=== PATIENT | female | born 1940 | race Caucasian/White ===

== ENCOUNTER 2017-02-28 12:52 | Inpatient (IN) | payer OTHER, MEDICARE ==
[2017-02-28] VITALS (9 sets, daily range): BP systolic 114–139; BP diastolic 63–82; PULSE 80–88; RESP 16–20; TEMP 97.8–98.2; O2SAT 92–94
[~2017-02-28] VITALS: Ht 165.1 cm; Wt 70.5 kg
[~2017-02-28 12:52] MED LIST: ALBU.5I INH; ALBU0.086 INH; ASPI81TA82 PO; CALTTAB5 PO; FISHCAP PO; LEVA500T PO; METF500 PO; MUCI600T PO; PRED20 PO; RAMI5CAP7 PO; SIMV40TA PO; VITA20003 PO
[2017-02-28] MEDS ORDERED: IOHEXOL 350 MG/ML 10 ML VIAL (for RAD DIAG) IVCONTRAST ONE (12:53)
[2017-02-28] MEDS ORDERED: METF500T PO (13:04)
[2017-02-28] MEDS ORDERED: RAMI10CA PO (13:15)
[2017-02-28] MEDS ORDERED: SIMV40TA PO (13:15)
--- NOTE | 2017-02-28 13:28 | PD ---
HPI Chief Complaint: Respiratory Distress Time Seen by Provider: 13:12 Travel History International Travel<30 days: No Contact w/Intl Traveler<30days: No Traveled to known affect area: No History of Present Illness HPI This is a 76-year-old female with history of coronary artery disease with [address], COPD, asthma, tobacco use, diabetes, hyperlipidemia, presents for evaluation of dyspnea. For the past month the patient has had gradually worsening dyspnea on exertion as well as bilateral lower extremity edema. Symptoms haven't worsened which prompted evaluation today. She endorses a pressure in the epigastrium intermittently but denies any chest pain. She denies any cough, congestion, fevers, chills, recent travel, recent surgery. No history of DVT or PE. History of congestive heart failure. Her primary care physician is Dr. Whitehead. No other complaints. PFSH Past Medical History Asthma: Yes Cancer: Yes (UTERINE) Cardiovascular Problems: Yes (CAD, 2 STENTS) High Cholesterol: Yes COPD: Yes Diabetes: Yes (TYPE II) Patient Takes Glucophage: No (02/28/17 4730) Diminished Hearing: No Endocrine: Yes Gastrointestinal Disorders: Yes Genitourinary: No Hepatitis: No Hiatal Hernia: Yes Hypertension: Yes Medical other: Yes (ARTHRITIS, BACK NECK PAIN) Neurologic: Yes Psychiatric: No Respiratory: Yes (ASTHMA, RARELY USES INHALER) Migraines: Yes Pneumonia: Yes Thyroid Disease: No ?: Not Past Surgical History Abdominal Surgery: Yes Appendectomy: Yes Cardiac Surgery: No Cholecystectomy: Yes Ear Surgery: No Endocrine Surgery: No Eye Surgery: No Genitourinary Surgery: No Gynecologic Surgery: Yes Hysterectomy: Yes Oral Surgery: Yes (TEETH REMOVAL) Pacemaker: No Thoracic Surgery: No Other Surgery: Yes Social History Alcohol Use: Yes (OCC) Tobacco Use: Yes (/2 PPD) Substance Use: No Allergies-Medications (Allergen,Severity, Reaction): Coded Allergies: penicillin G (Unverified Allergy, Severe, Drowsiness, 01/24/17) Reported Meds & Prescriptions Reported Meds & Active Scripts Active Reported Simvastatin 40 Mg Tab 40 Mg PO HS Ramipril 10 Mg Cap 10 Mg PO DAILY Metformin (Metformin HCl) 500 Mg Tab 500 Mg PO BIDPC With meals Review of Systems Except as stated in HPI: all other systems reviewed are Neg Physical Exam Narrative GENERAL: Well-developed well-nourished female somewhat tachypneic on initial examination. Her vital signs reviewed. SKIN: Warm and dry. HEAD: Atraumatic. Normocephalic. EYES: Pupils equal and round. No scleral icterus. No injection or drainage. ENT: No nasal bleeding or discharge. Mucous membranes pink and moist. NECK: Trachea midline. No JVD. CARDIOVASCULAR: Regular rate and rhythm. No murmur appreciated. RESPIRATORY: No accessory muscle use. Mild wheezing bilaterally without crackles. GASTROINTESTINAL: Abdomen soft, non-tender, nondistended. Hepatic and splenic margins not palpable. MUSCULOSKELETAL: No obvious deformities. Trace pitting edema in the lower extremities. NEUROLOGICAL: Awake and alert. No obvious cranial nerve deficits. Motor grossly within normal limits. Normal speech. PSYCHIATRIC: Appropriate mood and affect; insight and judgment normal. Data Data Last Documented VS Vital Signs Date Time Temp Pulse Resp B/P (MAP) Pulse Ox O2 Delivery O2 Flow Rate FiO2 02/28/17 16:25 81 18 119/67 (84) 92 Nasal Cannula 3.00 02/28/17 13:01 98.2 Orders Orders Electrocardiogram (02/28/17 ) Complete Blood Count With Diff (02/28/17 13:22) Comprehensive Metabolic Panel (02/28/17 13:22) B-Type Natriuretic Peptide (02/28/17 13:22) Act Partial Throm Time (Ptt) (02/28/17 13:22) Prothrombin Time / Inr (Pt) (02/28/17 13:22) Magnesium (Mg) (02/28/17 13:22) Ckmb (Isoenzyme) Profile (02/28/17 13:22) Troponin I (02/28/17 13:22) Iv Access Insert/Monitor (02/28/17 13:22) Electrocardiogram (02/28/17 13:22) Ecg Monitoring (02/28/17 13:22) Oximetry (02/28/17 13:22) Oxygen Administration (02/28/17 13:22) Chest, Single Ap (02/28/17 13:22) Sodium Chloride 0.9% Flush (Ns Flush) (02/28/17 13:30) Albuterol-Ipratropium Neb (Duoneb Neb) (02/28/17 13:30) Lipase (02/28/17 13:22) Ct Pulmonary Angiogram (02/28/17 13:26) Methylprednisolone So Succ Inj (Solumedr (02/28/17 14:15) Aspirin Chew (Aspirin Chew) (02/28/17 14:45) Furosemide Inj (Lasix Inj) (02/28/17 14:45) Iohexol 350 Inj (Omnipaque 350 Inj) (02/28/17 12:53) (Hub Use Only)Inp Phy Cons/Ref (02/28/17 ) Troponin I (02/28/17 16:50) Electrocardiogram (02/28/17 ) Heparin Inj (Heparin Inj) (02/28/17 17:30) Heparin Inj (Heparin Inj) (02/28/17 23:30) Heparin Inj (Heparin Inj) (02/28/17 23:30) Heparin-D5w 25,000 U/250 Ml (Heparin-D5w (02/28/17 17:30) Act Partial Throm Time (Ptt) (02/28/17 17:19) Prothrombin Time / Inr (Pt) (02/28/17 17:19) Cbc No Diff, Includes Plts (02/28/17 17:19) Cbc No Diff, Includes Plts (03/03/17 06:00) Act Partial Throm Time (Ptt) (03/01/17 00:19) Occult Blood (Hemoccult) Stool (02/28/17 17:19) Admit Order (Ed Use Only) (02/28/17 17:37) Npo After Midnight W/ Po Meds (02/28/17 Dinner) Labs Laboratory Tests Test 02/28/17 13:07 02/28/17 16:57 White Blood Count 6.3 TH/MM3 Red Blood Count 5.64 MIL/MM3 Hemoglobin 16.9 GM/DL Hematocrit 52.3 % Mean Corpuscular Volume 92.7 FL Mean Corpuscular Hemoglobin 29.9 PG Mean Corpuscular Hemoglobin Concent 32.3 % Red Cell Distribution Width 13.4 % Platelet Count 151 TH/MM3 Mean Platelet Volume 8.8 FL Neutrophils (%) (Auto) 77.0 % Lymphocytes (%) (Auto) 16.2 % Monocytes (%) (Auto) 5.9 % Eosinophils (%) (Auto) 0.4 % Basophils (%) (Auto) 0.5 % Neutrophils # (Auto) 4.9 TH/MM3 Lymphocytes # (Auto) 1.0 TH/MM3 Monocytes # (Auto) 0.4 TH/MM3 Eosinophils # (Auto) 0.0 TH/MM3 Basophils # (Auto) 0.0 TH/MM3 CBC Comment DIFF FINAL Differential Comment Prothrombin Time 11.0 SEC Prothromb Time International Ratio 1.0 RATIO Activated Partial Thromboplast Time 24.3 SEC Blood Urea Nitrogen 22 MG/DL Creatinine 0.75 MG/DL Random Glucose 128 MG/DL Total Protein 6.5 GM/DL Albumin 3.5 GM/DL Calcium Level 8.3 MG/DL Magnesium Level 2.0 MG/DL Alkaline Phosphatase 70 U/L Aspartate Amino Transf (AST/SGOT) 25 U/L Alanine Aminotransferase (ALT/SGPT) 37 U/L Total Bilirubin 0.7 MG/DL Sodium Level 146 MEQ/L Potassium Level 3.6 MEQ/L Chloride Level 108 MEQ/L Carbon Dioxide Level 31.0 MEQ/L Anion Gap 7 MEQ/L Estimat Glomerular Filtration Rate 75 ML/MIN Total Creatine Kinase 86 U/L Troponin I 0.71 NG/ML B-Type Natriuretic Peptide 1405 PG/ML Lipase 168 U/L [facility] Medical Decision Making Medical Screen Exam Complete: Yes Emergency Medical Condition: Yes Medical Record Reviewed: Yes Interpretation(s) Chest x-ray CONCLUSION: 1. Compensated cardiomegaly. 2. Left basilar consolidation/effusion Troponin 0.71 BNP 1405 CTPA CONCLUSION: 1. No PE is identified. 2. Small bilateral pleural effusions with a smooth septal thickening in the lower lobes. These findings suggest mild pulmonary edema. Given the enlarged cardiac silhouette, a cardiogenic cause should be considered. 3. Nonspecific 8mm right adrenal gland nodule. It does not meet criteria for an adenoma on this examination. Differential Diagnosis New onset CHF, pulmonary embolism, pneumonia, pneumothorax, COPD exacerbation, pleural effusion Narrative Course 76-year-old female who for 1 month has been expressing gradually worsening dyspnea with exertion, orthopnea, lower extremity edema. She endorses occasional pressure in the epigastrium but denies any chest pain. Initially she has mild wheezing. She does have history of COPD. Plan is for basic lab work, chest x-ray, ECG monitoring, 12-lead EKG. The patient will be given DuoNeb therapy. EKG reveals a left bundle-branch block which is consistent with previous EKG on record. Her BNP is 1405. Troponin is 0.71. Chest x-ray reveals compensated cardiomegaly with left basilar consolidation/effusion. She has no leukocytosis. The barrel cleaner was paged once these results became available. While still awaiting for call back, second troponin has been ordered and the patient is started on heparin drip and bolus. Discussed with Dr. Liang who is agreeable to admission. Discussed with Dr. Johnson who would like patient to be NPO after midnight. Procedures EKG Prior to Arrival: Yes Diagnosis Primary Impression: Non-STEMI (non-ST elevated myocardial infarction) Additional Impression: CHF (congestive heart failure) Qualified Codes: I50.9 - Heart failure, unspecified Admitting Information Admitting Physician Requests: Admit Triston Marc Feb 28, 2017 13:28
[2017-02-28] MEDS: RESP: ALBUTEROL 2.5 MG/IPRATROPIUM 0.5 MG NEB (SCH) INH ×2 (13:29→13:30)
[2017-02-28] MEDS ORDERED: SODIUM CHLORIDE 0.9% FLUSH 10 ML FLUSH IVF PRN (13:30)
[2017-02-28 13:40] LABS: AUTOMATED NEUTROPHIL # 4.9 TH/MM3 (1.8-7.7); BASOPHIL % 0.5 % (0.0-2.0); EOSINOPHIL % 0.4 % (0.0-4.0); HEMATOCRIT 52.3 % (35.0-46.0); HEMO FLAGS DIFF FINAL; LYMPH % 16.2 % (9.0-44.0); MEAN CELL VOLUME 92.7 FL (80.0-100.0); MEAN CORPUSCULAR HEMOGLOBIN 29.9 PG (27.0-34.0); MEAN CORPUSCULAR HGB CONC 32.3 % (32.0-36.0); MONO % 5.9 % (0.0-8.0); PLATELET COUNT 151 TH/MM3 (150-450); RED BLOOD COUNT 5.64 MIL/MM3 (4.00-5.30); RED CELL DISTRIBUTION WIDTH 13.4 % (11.6-17.2); WHITE BLOOD COUNT 6.3 TH/MM3 (4.0-11.0)
[2017-02-28 13:46] LABS: APTT (PATIENT) 24.3 SEC (24.3-30.1)
[2017-02-28 14:07] LABS: ANION GAP 7 MEQ/L (5-15); AST (GOT) 25 U/L (15-37); BLOOD UREA NITROGEN 22 MG/DL (7-18); CHLORIDE 108 MEQ/L (98-107); GLOMERULAR FILTRATION RATE 75 ML/MIN (>89); POTASSIUM 3.6 MEQ/L (3.5-5.1); SODIUM (NA) 146 MEQ/L (136-145)
--- NOTE | 2017-02-28 14:09 | RADRPT ---
EXAM DATE/TIME: 02/28/2017 13:46 [facility] COMPARISON: No previous studies available for comparison. INDICATIONS : Shortness of breath. MEDICAL HISTORY : Chronic obstructive pulmonary disease. SURGICAL HISTORY : Heart stent and balloon. ENCOUNTER: Initial ACUITY: 1 day PAIN SCORE: 0/10 LOCATION: Bilateral chest FINDINGS: A single view of the chest demonstrates the lungs to be symmetrically aerated with left basilar conso lidation/effusion. Lungs are otherwise clear. Heart size is prominent but appears to be were compensa melissa. Degenerative spurring of the thoracolumbar spine. CONCLUSION: 1. Compensated cardiomegaly. 2. Left basilar consolidation/effusion Bryon Mera MD on February 28, 2017 at 14:06 Board Certified Radiologist. This report was verified electronically.
[2017-02-28 14:11] LABS: ALKALINE PHOSPHATASE 70 U/L (45-117); ALT (GPT) 37 U/L (10-53); TOTAL BILIRUBIN ADULT 0.7 MG/DL (0.2-1.0)
[2017-02-28] MEDS ORDERED: methylPREDNISolone SOD SUCC 125 MG/2 ML VIAL IV PUSH ONE (14:15)
[2017-02-28 14:17] LABS: CREATINE KINASE 86 U/L (26-192)
[2017-02-28] MEDS ORDERED: ASPIRIN 81 MG CHEW TAB PO ONE (14:45)
[2017-02-28] MEDS ORDERED: FUROSEMIDE 20 MG/2 ML VIAL IV PUSH ONE (14:45)
--- NOTE | 2017-02-28 15:25 | RADRPT ---
EXAM DATE/TIME: 02/28/2017 15:07 [facility] COMPARISON: No previous studies available for comparison. INDICATIONS : Short of breath for one month. IV CONTRAST: 74 cc Omnipaque 350 (iohexol) IV RADIATION DOSE: 23.14 CTDIvol (mGy) MEDICAL HISTORY : Hypertension. Chronic obstructive pulmonary disease. CAD, Uterine cancer, Asthma SURGICAL HISTORY : Hysterectomy. Coronary artery stent. ENCOUNTER: Initial ACUITY: 1 month PAIN SCALE: 2/10 LOCATION: Bilateral chest TECHNIQUE: Volumetric scanning of the chest was performed using a pulmonary embolism protocol MIP images were re constructed. Using automated exposure control and adjustment of the mA and/or kV according to patien t size, radiation dose was kept as low as reasonably achievable to obtain optimal diagnostic quality images. DICOM format image data is available electronically for review and comparison. Follow-up recommendations for detected pulmonary nodules are based at a minimum on nodule size and pa tient risk factors according to Fleischner Society Guidelines. FINDINGS: PULMONARY ARTERIES: No filling defects are seen in the pulmonary arteries through the segmental level. LUNGS: There is trace pleural fluid bilaterally with mild atelectasis at the lung bases. There is mild septa l thickening in the lower lobes. In the upper lobes there is mild centrilobular emphysema. PLEURAE: There are small pleural effusions bilaterally. MEDIASTINUM: Heart is enlarged with particular enlargement of the left ventricle. There is coronary artery calcifi cation moderate atherosclerotic disease of the aorta. Ascending aorta is aneurysmal measuring 4.4 cm. No lymphadenopathy is visualized. MUSCULOSKELETAL: There are degenerative changes of the thoracic spine. MISCELLANEOUS: The visualized upper abdominal organs demonstrate no acute abnormality. There is an 8mm right adrenal gland nodule with Hounsfield measurements of 16. CONCLUSION: 1. No PE is identified. 2. Small bilateral pleural effusions with a smooth septal thickening in the lower lobes. These findin gs suggest mild pulmonary edema. Given the enlarged cardiac silhouette, a cardiogenic cause should be considered. 3. Nonspecific 8mm right adrenal gland nodule. It does not meet criteria for an adenoma on this exami nation. Duc Bryant MD on February 28, 2017 at 15:18 Board Certified Radiologist. This report was verified electronically.
--- NOTE | 2017-02-28 15:28 | PD ---
Data Data Last Documented VS Vital Signs Date Time Temp Pulse Resp B/P (MAP) Pulse Ox O2 Delivery O2 Flow Rate FiO2 02/28/17 13:32 92 Nasal Cannula 2.00 02/28/17 13:01 98.2 87 17 134/79 (97) Orders Orders Electrocardiogram (02/28/17 ) Complete Blood Count With Diff (02/28/17 13:22) Comprehensive Metabolic Panel (02/28/17 13:22) B-Type Natriuretic Peptide (02/28/17 13:22) Act Partial Throm Time (Ptt) (02/28/17 13:22) Prothrombin Time / Inr (Pt) (02/28/17 13:22) Magnesium (Mg) (02/28/17 13:22) Ckmb (Isoenzyme) Profile (02/28/17 13:22) Troponin I (02/28/17 13:22) Iv Access Insert/Monitor (02/28/17 13:22) Electrocardiogram (02/28/17 13:22) Ecg Monitoring (02/28/17 13:22) Oximetry (02/28/17 13:22) Oxygen Administration (02/28/17 13:22) Chest, Single Ap (02/28/17 13:22) Sodium Chloride 0.9% Flush (Ns Flush) (02/28/17 13:30) Albuterol-Ipratropium Neb (Duoneb Neb) (02/28/17 13:30) Lipase (02/28/17 13:22) Ct Pulmonary Angiogram (02/28/17 13:26) Methylprednisolone So Succ Inj (Solumedr (02/28/17 14:15) Aspirin Chew (Aspirin Chew) (02/28/17 14:45) Furosemide Inj (Lasix Inj) (02/28/17 14:45) Iohexol 350 Inj (Omnipaque 350 Inj) (02/28/17 12:53) Labs Laboratory Tests Test 02/28/17 13:07 White Blood Count 6.3 TH/MM3 Red Blood Count 5.64 MIL/MM3 Hemoglobin 16.9 GM/DL Hematocrit 52.3 % Mean Corpuscular Volume 92.7 FL Mean Corpuscular Hemoglobin 29.9 PG Mean Corpuscular Hemoglobin Concent 32.3 % Red Cell Distribution Width 13.4 % Platelet Count 151 TH/MM3 Mean Platelet Volume 8.8 FL Neutrophils (%) (Auto) 77.0 % Lymphocytes (%) (Auto) 16.2 % Monocytes (%) (Auto) 5.9 % Eosinophils (%) (Auto) 0.4 % Basophils (%) (Auto) 0.5 % Neutrophils # (Auto) 4.9 TH/MM3 Lymphocytes # (Auto) 1.0 TH/MM3 Monocytes # (Auto) 0.4 TH/MM3 Eosinophils # (Auto) 0.0 TH/MM3 Basophils # (Auto) 0.0 TH/MM3 CBC Comment DIFF FINAL Differential Comment Prothrombin Time 11.0 SEC Prothromb Time International Ratio 1.0 RATIO Activated Partial Thromboplast Time 24.3 SEC Blood Urea Nitrogen 22 MG/DL Creatinine 0.75 MG/DL Random Glucose 128 MG/DL Total Protein 6.5 GM/DL Albumin 3.5 GM/DL Calcium Level 8.3 MG/DL Magnesium Level 2.0 MG/DL Alkaline Phosphatase 70 U/L Aspartate Amino Transf (AST/SGOT) 25 U/L Alanine Aminotransferase (ALT/SGPT) 37 U/L Total Bilirubin 0.7 MG/DL Sodium Level 146 MEQ/L Potassium Level 3.6 MEQ/L Chloride Level 108 MEQ/L Carbon Dioxide Level 31.0 MEQ/L Anion Gap 7 MEQ/L Estimat Glomerular Filtration Rate 75 ML/MIN Total Creatine Kinase 86 U/L Troponin I 0.71 NG/ML B-Type Natriuretic Peptide 1405 PG/ML Lipase 168 U/L [facility] Supervised Visit with MONAE: Yes Narrative Course The history, exam, and medical decision-making in the associated mid-level provider note were completed with my assistance. I reviewed and agree with the findings presented. I attest that I had a [id number] encounter with the patient on the same day, and personally performed and documented my assessment and findings in the medical record. *My assessment and Findings: 76 year-old woman with increasing shortness of breath or orthopnea edema and dyspnea on exertion. She has some evidence of volume overload with pedal edema. She does not have any significant Rales. Troponin and BNP are both elevated. This is likely new onset heart failure, possible ACS. Patient will be admitted. We'll discuss a cardiology, likely heparin drip, diuretics. Looks overall well. Jonny Juan MD Feb 28, 2017 15:28
[2017-02-28] MEDS ORDERED: HEPARIN SODIUM - IV 10,000 UNITS/10 ML VIAL IV ONE (17:30)
[2017-02-28] MEDS: HEPARIN-D5W 25,000 U/250 ML 250 ML IV PRN (18:12)
[2017-02-28] MEDS ORDERED: NITROGLYCERIN 0.4 MG SL 25 TABS/BTL SL PRN (18:15)
[2017-02-28] MEDS ORDERED: GLUCAGON 1 MG/ML VIAL OTHER PRN (18:15)
[2017-02-28] MEDS ORDERED: MORPHINE SULFATE 4 MG/ML INJ IV PUSH PRN (18:15)
[2017-02-28] MEDS ORDERED: SODIUM CHLORIDE 0.9% FLUSH 10 ML FLUSH IV FLUSH PRN (18:15)
[2017-02-28] MEDS ORDERED: DEXTROSE 50% IN WATER 50 ML VIAL(D50) IV PUSH PRN (18:15)
--- NOTE | 2017-02-28 18:24 | HHI.HP ---
[facility] Primary Care Physician No Primary Care Physician Admission Diagnosis Nstemi, new-onset chf Diagnoses: Chief Complaint: Shortness of breathing, chest pressure, lower extremity edema Travel History International Travel<30 Days: No Contact w/Intl Traveler <30 Da: No Traveled to Known Affected Are: No History of Present Illness This is a 76-year-old female past medical history of coronary artery disease status post stent placement and 1999 and balloon angioplasty and 2005, history of left bundle branch block, history of [place] in 1999, COPD, type 2 diabetes, hypertension, and hyperlipidemia who presented with chest pressure, shortness of breathing, and lower extremity edema for 2 weeks. Patient stated that chest pressure and shortness of breathing occurred with exertion. Symptoms worsen so she went to the emergency department. Chest pressure and shortness of breathing resolved with rest. Lower extremity worsen over the past 2 weeks. Patient stated that she she has to sleep with her head up. Patient thought her chest pressure was indigestion since she has a history of hiatal hernia. Patient does not follow with a quantitative analyst developer. She stated that she last saw a quantitative analyst developer in 2005. She has not had any echo or stress test done since her balloon angioplasty in 2005. Patient continues to smoke tobacco for 50+ years. Baseline was 2 packs per day and now down to half pack per day for the last 6 months. At the moment patient denies chest pain. All other review systems reviewed and negative. Past Family Social History Past Medical History Coronary artery disease History of [place] History uterine cancer in 1973 Type 2 diabetes COPD Hiatal hernia Hyperlipidemia Hypertension Fibromyalgia History left bundle branch block Past Surgical History Cholecystectomy Appendectomy Hysterectomy and oophorectomy Reported Medications Simvastatin 40 Mg Tab 40 Mg PO HS Ramipril 10 Mg Cap 10 Mg PO DAILY Metformin (Metformin HCl) 500 Mg Tab 500 Mg PO BIDPC With meals Allergies: Coded Allergies: penicillin G (Unverified Allergy, Severe, Drowsiness, 01/24/17) Active Ordered Medications Current Medications Sodium Chloride (NS Flush) 2 ml UNSCH PRN IVF FLUSH AFTER USING IV ACCESS; Start 02/28/17 at 13:30 Albuterol/ Ipratropium (Duoneb Neb) 1 ampule Q15M INH Last administered on 02/28 13:30; Start 02/28/17 at 13:30; Stop 02/28/17 at 13:46; Status DC Methylprednisolone Sodium Succinate (SoluMEDROL INJ) 125 mg ONCE ONCE IV PUSH Last administered on 02/28/17 14:15; Start 02/28/17 at 14:15; Stop 02/28/17 at 14:16; Status DC Aspirin (Aspirin Chew) 324 mg ONCE ONCE PO Last administered on 02/28/17 14: 43; Start 02/28/17 at 14:45; Stop 02/28/17 at 14:46; Status DC Furosemide (Lasix Inj) 20 mg ONCE ONCE IV PUSH Last administered on 02/28/17 14:55; Start 02/28/17 at 14:45; Stop 02/28/17 at 14:46; Status DC Iohexol (Omnipaque 350 Inj) 74 ml STK-MED ONCE IVCONTRAST Last administered on 02/28/17 12:53; Start 02/28/17 at 12:53; Stop 02/28/17 at 15:11; Status DC Heparin Sodium (Porcine) (Heparin Inj) 4,000 units ONCE ONCE IV ; Start at 17:30; Stop 02/28/17 at 17:31; Status DC Heparin Sodium (Porcine) (Heparin Inj) 5,000 units UNSCH PRN IV APTT LESS THAN 25; Start 02/28/17 at 23:30 Heparin Sodium (Porcine) (Heparin Inj) 2,500 units UNSCH PRN IV APTT 25 TO 39; Start 02/28/17 at 23:30 Heparin Sodium/ Dextrose 250 ml @ 9.36 mls/hr TITRATE PRN IV Coagulation management; Start 02/28/17 at 17:30 Non-Formulary Medication 10 mg DAILY PO ; Start 03/01/17 at 09:00; Status UNV Non-Formulary Medication 40 mg HS PO ; Start 02/28/17 at 21:00; Status UNV Sodium Chloride (NS Flush) 2 ml BID IV FLUSH ; Start 02/28/17 at 21:00; Status UNV Sodium Chloride (NS Flush) 2 ml UNSCH PRN IV FLUSH FLUSH AFTER USING IV ACCESS ; Start 02/28/17 at 18:15; Status UNV Aspirin (Aspirin Chew) 162 mg DAILY PO ; Start 03/01/17 at 09:00; Status UNV Metoprolol Tartrate (Lopressor) 25 mg BID PO ; Start 02/28/17 at 21:00; Status UNV Nitroglycerin (Nitroglycerin 2% Oint) 1 inch Q6HR TOP ; Start 02/28/17 at 18:15 ; Status UNV Nitroglycerin (Nitrostat Sl) 0.4 mg Q5M PRN SL ANGINA; Start 02/28/17 at 18:15 ; Status UNV Acetaminophen (Tylenol) 500 mg Q4H PRN PO HEADACHE; Start 02/28/17 at 18:15; Status UNV Morphine Sulfate (Morphine Inj) 2 mg Q5M PRN IV PUSH PAIN SCALE 6 TO 10; Start 02/28/17 at 18:15; Status UNV Famotidine (Pepcid) 20 mg BID PO ; Start 02/28/17 at 21:00; Status UNV Family History Father secondary to infected gallbladder. Mother had a unknown cancer. Social History Patient lives with her sister. Deny any alcohol illicit drug use. Smokes a half pack per day of tobacco. Physical Exam Vital Signs Vital Signs Date Time Temp Pulse Resp B/P (MAP) Pulse Ox O2 Delivery O2 Flow Rate FiO2 02/28/17 16:25 81 18 119/67 (84) 92 Nasal Cannula 3.00 02/28/17 13:32 92 Nasal Cannula 2.00 02/28/17 13:01 98.2 87 17 134/79 (97) 94 Nasal Cannula 2.00 02/28/17 13:01 94 Nasal Cannula 2.00 02/28/17 12:56 27 92 Room Air Physical Exam GENERAL: This is a well-nourished, well-developed patient, in no apparent distress. SKIN: No rashes, ecchymoses or lesions. Cool and dry. HEAD: Atraumatic. Normocephalic. No temporal or scalp tenderness. EYES: Pupils equal round and reactive. Extraocular motions intact. No scleral icterus. No injection or drainage. ENT: Nose without bleeding, purulent drainage or septal hematoma. Throat without erythema, tonsillar hypertrophy or exudate. Uvula midline. Airway patent. NECK: Trachea midline. No JVD or lymphadenopathy. Supple, nontender, no meningeal signs. CARDIOVASCULAR: Regular rate and rhythm without murmurs, gallops, or rubs. RESPIRATORY: Bilateral basilar crackles. No wheezing or rhonchi noted. GASTROINTESTINAL: Abdomen soft, nondistended. Positive tenderness palpation in the epigastric area. No hepato-splenomegaly, or palpable masses. No guarding. MUSCULOSKELETAL: Extremities without clubbing, cyanosis. Positive for lower extremity edema. No calf tenderness. Negative Homans sign bilaterally. NEUROLOGICAL: Awake and alert. Cranial nerves II through XII intact. Motor and sensory grossly within normal limits. Five out of 5 muscle strength in all muscle groups. Normal speech. Laboratory Laboratory Tests Test 02/28/17 13:07 02/28/17 16:57 White Blood Count 6.3 Red Blood Count 5.64 Hemoglobin 16.9 Hematocrit 52.3 Mean Corpuscular Volume 92.7 Mean Corpuscular Hemoglobin 29.9 Mean Corpuscular Hemoglobin Concent 32.3 Red Cell Distribution Width 13.4 Platelet Count 151 Mean Platelet Volume 8.8 Neutrophils (%) (Auto) 77.0 Lymphocytes (%) (Auto) 16.2 Monocytes (%) (Auto) 5.9 Eosinophils (%) (Auto) 0.4 Basophils (%) (Auto) 0.5 Neutrophils # (Auto) 4.9 Lymphocytes # (Auto) 1.0 Monocytes # (Auto) 0.4 Eosinophils # (Auto) 0.0 Basophils # (Auto) 0.0 CBC Comment DIFF FINAL Differential Comment Prothrombin Time 11.0 Prothromb Time International Ratio 1.0 Activated Partial Thromboplast Time 24.3 Blood Urea Nitrogen 22 Creatinine 0.75 Random Glucose 128 Total Protein 6.5 Albumin 3.5 Calcium Level 8.3 Magnesium Level 2.0 Alkaline Phosphatase 70 Aspartate Amino Transf (AST/SGOT) 25 Alanine Aminotransferase (ALT/SGPT) 37 Total Bilirubin 0.7 Sodium Level 146 Potassium Level 3.6 Chloride Level 108 Carbon Dioxide Level 31.0 Anion Gap 7 Estimat Glomerular Filtration Rate 75 Total Creatine Kinase 86 Troponin I 0.71 B-Type Natriuretic Peptide 1405 Lipase 168 Result Diagram: 02/28/17 1307 02/28/17 [address] Angiography 02/28/17 1326 Signed Impressions: Service Date/Time: Tuesday, February 28, 2017 15:07 - CONCLUSION: 1. No PE is identified. 2. Small bilateral pleural effusions with a smooth septal thickening in the lower lobes. These findings suggest mild pulmonary edema. Given the enlarged cardiac silhouette, a cardiogenic cause should be considered. 3. Nonspecific 8mm right adrenal gland nodule. It does not meet criteria for an adenoma on this examination. Duc Bryant MD Chest X-Ray 02/28/17 1322 Signed Impressions: Service Date/Time: Tuesday, February 28, 2017 13:46 - CONCLUSION: 1. Compensated cardiomegaly. 2. Left basilar consolidation/effusion MD Jason Lilly VTE Risk Assessment Caprini VTE Risk Assessment: Mod/High Risk (score >= 2) Caprini Risk Assessment Model Point Value = 1 Point Value = 2 Point Value = 3 Point Value = 5 Age 41-60 Minor surgery BMI > 25 kg/m2 Swollen legs Varicose veins or History of unexplained or recurrent spontaneous Oral contraceptives or hormone replacement Sepsis (< 1 month) Serious lung disease, including pneumonia (< 1 month) Abnormal pulmonary function Acute myocardial infarction Congestive heart failure (< 1 month) History of inflammatory bowel disease Medical patient at bed rest Age 61-74 Arthroscopic surgery Major open surgery (> 45 min) Laparoscopic surgery (> 45 min) Malignancy Confined to bed (> 72 hours) Immobilizing plaster cast Central venous access Age >= 75 History of VTE Family history of VTE Factor V Leiden Prothrombin [id number] Lupus anticoagulant Anticardiolipin antibodies Elevated serum homocysteine Heparin-induced thrombocytopenia Other congenital or acquired thrombophilia Stroke (< 1 month) Elective arthroplasty Hip, pelvis, or leg fracture Acute spinal cord injury (< 1 month) Prophylaxis Regimen Total Risk Factor Score Risk Level Prophylaxis Regimen 0-1 Low Early ambulation 2 Moderate Order ONE of the following: *Sequential Compression Device (SCD) *Heparin 5000 units SQ BID 3-4 Higher Order ONE of the following medications: *Heparin 5000 units SQ TID *Enoxaparin/Lovenox 40 mg SQ daily (WT < 150 kg, CrCl > 30 mL/min) *Enoxaparin/Lovenox 30 mg SQ daily (WT < 150 kg, CrCl > 10-29 mL/min) *Enoxaparin/Lovenox 30 mg SQ BID (WT < 150 kg, CrCl > 30 mL/min) AND/OR *Sequential Compression Device (SCD) 5 or more Highest Order ONE of the following medications: *Heparin 5000 units SQ TID (Preferred with Epidurals) *Enoxaparin/Lovenox 40 mg SQ daily (WT < 150 kg, CrCl > 30 mL/min) *Enoxaparin/Lovenox 30 mg SQ daily (WT < 150 kg, CrCl > 10-29 mL/min) *Enoxaparin/Lovenox 30 mg SQ BID (WT < 150 kg, CrCl > 30 mL/min) AND *Sequential Compression Device (SCD) Assessment and Plan Assessment and Plan 76-year-old female with history of coronary disease status post stent placement and balloon angioplasty, history of AZ, history of left bundle branch block, COPD, type 2 diabetes, hypertension, hyperlipidemia who presented with shortness of breathing, chest pain, lower extremity edema Chest pain -Concerning for ACS due to patient being high risks and chest pain occurring with exertion. Patient has a history of AZ, hx left bundle branch block, hx of coronary artery disease with stent placement. Positive tobacco use. She does have epigastric pain with palpation. -Labs reviewed and troponin elevated at 0.71. EKG shows left bundle branch block but this is her baseline. Chest x-ray shows left pleural effusion or consolidation. CTA showed mild bilateral pleural effusion. -We will continue to trend cardiac enzyme and monitor over telemetry. Will get lipid panel and a.m. -Patient was giving aspirin and heparin drip by ED provider. Will continue with aspirin and heparin drip. Will give nitro paste patch, continue statin, and start metoprolol. Morphine when necessary for chest pain. Will make sure patient is chest pain-free at the moment she is asymptomatic. -Dr. Van already contacted by ED provider, Triston. Recommend continue with heparin drip and make patient nothing by mouth at midnight. -We will also give Pepcid since she does have epigastric pain with palpation. Elevated troponin -concerns for NSTEMI. See treatment as above. Dyspnea -Most likely secondary to CHF exacerbation. -CTA shows bilateral pleural effusion. BNP elevated at 1405. -Patient given a dose of Lasix in the ED. Will continue with Lasix IV. Strict ins and outs. -Supplement with oxygen as needed. Continue to monitor clinically. -order ECHO. Tobacco dependence -Smoking cessation. Unable to give nicotine supplement since ACS is being ruled out. History of coronary disease, hypertension, hyperlipidemia, left bundle branch block, COPD, fibromyalgia, type 2 diabetes -Continue with home medication except for metformin. -Start patient on insulin sliding scale. DVT prophylaxis -On heparin drip. Discussed Condition With Patient Physician Certification 2 Midnight Certification Type: Admission for Inpatient Services Order for Inpatient Services The services are ordered in accordance with Medicare regulations or non- Medicare payer requirements, as applicable. In the case of services not specified as inpatient-only, they are appropriately provided as inpatient services in accordance with the 2-midnight benchmark. Estimated LOS (days): 2 2 days is the estimated time the patient will need to remain in the hospital, assuming treatment plan goals are met and no additional complications. Post-Hospital Plan: Yael Blanchard MD Feb 28, 2017 18:24
[2017-02-28] MEDS: SODIUM CHLORIDE 0.9% FLUSH 10 ML FLUSH IV FLUSH SCH (21:00)
[2017-02-28] MEDS: INSULIN ASPART SUPPLEMENTAL SCALE SQ SCH (21:00)
[2017-02-28] MEDS: FAMOTIDINE 20 MG TAB PO SCH (21:44)
[2017-02-28] MEDS: PRAVASTATIN SOD 80 MG TAB PO SCH (21:44)
[2017-02-28] MEDS: NITROGLYCERIN 2% OINT 1 GM PACKET TOP SCH (21:44)
[2017-02-28] MEDS: METOPROLOL TARTRATE 25 MG TAB PO SCH (22:43)
[2017-02-28 23:25] LABS: HEMATOCRIT 49.1 % (35.0-46.0); MEAN CELL VOLUME 91.6 FL (80.0-100.0); MEAN CORPUSCULAR HEMOGLOBIN 29.5 PG (27.0-34.0); MEAN CORPUSCULAR HGB CONC 32.2 % (32.0-36.0); PLATELET COUNT 146 TH/MM3 (150-450); RED BLOOD COUNT 5.36 MIL/MM3 (4.00-5.30); RED CELL DISTRIBUTION WIDTH 13.3 % (11.6-17.2); REVIEW FLAG FINAL; WHITE BLOOD COUNT 5.3 TH/MM3 (4.0-11.0)
[2017-02-28] MEDS ORDERED: HEPARIN SODIUM - IV 10,000 UNITS/10 ML VIAL IV PRN ×2 (23:30)
--- NOTE | 2017-02-28 23:33 | EKG ---
Date Performed: 02/28/2017 Time Performed: 17:07:02 PTAGE: 76 years EKG: Sinus rhythm WITH OCCASIONAL SUPRAVENTRICULAR PREMATURE COMPLEXES LEFT BUNDLE BRANCH BLOCK ABNORMAL ECG PREVIOUS TRACING : 02/28/2017 13.02 Compared to prior tracing no significant change DOCTOR: Alfredo Van Interpretating Date/Time 02/28/2017 23:31:51
[2017-02-28 23:35] LABS: APTT (PATIENT) 40.2 SEC (24.3-30.1); PROTHROMBIN TIME - PATIENT 11.5 SEC (9.8-11.6)
--- NOTE | 2017-02-28 23:47 | EKG ---
Date Performed: 02/28/2017 Time Performed: 13:02:34 PTAGE: 76 years EKG: Sinus rhythm LEFT BUNDLE BRANCH BLOCK ABNORMAL ECG PREVIOUS TRACING : 08/05/2013 22.34 Compared to the previous tracing, LBBB now noted DOCTOR: Alfredo Van Interpretating Date/Time 02/28/2017 23:46:24
[2017-03-01] VITALS (27 sets, daily range): BP systolic 94–113; BP diastolic 51–79; PULSE 56–84; RESP 18; TEMP 98–98.6; O2SAT 91–99
[2017-03-01] MEDS: NITROGLYCERIN 2% OINT 1 GM PACKET TOP SCH ×4 (00:37→17:10)
[2017-03-01 06:14] LABS: APTT (PATIENT) 39.6 SEC (24.3-30.1)
[2017-03-01 06:36] LABS: HDL CHOLESTEROL 49.3 MG/DL (40.0-60.0)
[2017-03-01] MEDS: INSULIN ASPART SUPPLEMENTAL SCALE SQ SCH ×4 (08:00→21:00)
[2017-03-01] MEDS ORDERED: FUROSEMIDE 20 MG/2 ML VIAL IV PUSH SCH (09:00)
[2017-03-01] MEDS ORDERED: ASPIRIN 81 MG CHEW TAB PO SCH (09:00)
[2017-03-01] MEDS: METOPROLOL TARTRATE 25 MG TAB PO SCH ×2 (09:30→22:10)
[2017-03-01] MEDS: SODIUM CHLORIDE 0.9% FLUSH 10 ML FLUSH IV FLUSH SCH ×2 (09:30→22:10)
[2017-03-01] MEDS: FAMOTIDINE 20 MG TAB PO SCH ×2 (09:31→22:10)
[2017-03-01] MEDS: RAMIPRIL 5 MG CAP PO SCH (09:31)
--- NOTE | 2017-03-01 11:27 | HHI.PR ---
Subjective Remarks This is a 76-year-old female with CAD status post PCI and stent placement 1999 and balloon angioplasty 2005, Left bundle branch block, History of [place] in 1999, COPD, Dm II, Hypertension, Hyperlipidemia, who came to ER with SOB, lower extremity edema for two weeks, Chest pain, department, does not follow a aircraft electrical systems specialist, she continue smoking Tobacco 50 Pack years, her base was 2 packs daily and for the last two years came to half pack daily. 03/01: Seen in her bedroom, discussed with nurse Miss Young and she is awaiting for aircraft electrical systems specialist I talked with Doctor Rehan he states Doctor Koko is coming to see the patient. at this time asymptomatic. Objective Vital Signs Date Time Temp Pulse Resp B/P (MAP) Pulse Ox O2 Delivery O2 Flow Rate FiO2 03/01/17 10:00 80 03/01/17 09:00 64 03/01/17 08:00 60 03/01/17 08:00 98.2 60 18 104/69 (81) 99 03/01/17 07:00 56 03/01/17 06:13 68 03/01/17 05:23 59 03/01/17 04:05 67 03/01/17 03:39 59 03/01/17 03:36 98.3 56 18 94/67 (76) 95 03/01/17 02:00 57 03/01/17 01:00 60 03/01/17 00:51 62 02/28/17 23:00 86 02/28/17 22:13 97.8 80 16 117/75 (89) 93 02/28/17 22:00 88 02/28/17 21:45 80 16 114/64 (81) 93 Nasal Cannula 4.00 02/28/17 19:31 86 20 127/82 (97) 92 Nasal Cannula 4.00 02/28/17 18:15 87 18 139/63 (88) 93 Nasal Cannula 3.00 02/28/17 16:25 81 18 119/67 (84) 92 Nasal Cannula 3.00 02/28/17 13:32 92 Nasal Cannula 2.00 02/28/17 13:01 98.2 87 17 134/79 (97) 94 Nasal Cannula 2.00 02/28/17 13:01 94 Nasal Cannula 2.00 02/28/17 12:56 27 92 Room Air I/O 02/28/17 02/28/17 02/28/17 03/01/17 03/01/17 03/01/17 07:00 15:00 23:00 07:00 15:00 23:00 Intake Total 240 ml Balance 240 ml Intake Oral 240 ml # Voids 2 Result Diagram: 02/28/17 2310 02/28/17 [address] Angiography 02/28/17 1326 Signed Impressions: Service Date/Time: Tuesday, February 28, 2017 15:07 - CONCLUSION: 1. No PE is identified. 2. Small bilateral pleural effusions with a smooth septal thickening in the lower lobes. These findings suggest mild pulmonary edema. Given the enlarged cardiac silhouette, a cardiogenic cause should be considered. 3. Nonspecific 8mm right adrenal gland nodule. It does not meet criteria for an adenoma on this examination. Duc Bryant MD Chest X-Ray 02/28/17 1322 Signed Impressions: Service Date/Time: Tuesday, February 28, 2017 13:46 - CONCLUSION: 1. Compensated cardiomegaly. 2. Left basilar consolidation/effusion Bryon Mera MD Procedures None Other Results Laboratory Tests Test 02/28/17 13:07 02/28/17 23:10 03/01/17 04:45 Neutrophils (%) (Auto) 77.0 % Lymphocytes (%) (Auto) 16.2 % Monocytes (%) (Auto) 5.9 % Eosinophils (%) (Auto) 0.4 % Basophils (%) (Auto) 0.5 % Neutrophils # (Auto) 4.9 TH/MM3 Lymphocytes # (Auto) 1.0 TH/MM3 Monocytes # (Auto) 0.4 TH/MM3 Eosinophils # (Auto) 0.0 TH/MM3 Basophils # (Auto) 0.0 TH/MM3 CBC Comment DIFF FINAL Differential Comment Blood Urea Nitrogen 22 MG/DL Creatinine 0.75 MG/DL Random Glucose 128 MG/DL Total Protein 6.5 GM/DL Albumin 3.5 GM/DL Calcium Level 8.3 MG/DL Magnesium Level 2.0 MG/DL Alkaline Phosphatase 70 U/L Aspartate Amino Transf (AST/SGOT) 25 U/L Alanine Aminotransferase (ALT/SGPT) 37 U/L Total Bilirubin 0.7 MG/DL Sodium Level 146 MEQ/L Potassium Level 3.6 MEQ/L Chloride Level 108 MEQ/L Carbon Dioxide Level 31.0 MEQ/L Anion Gap 7 MEQ/L Estimat Glomerular Filtration Rate 75 ML/MIN B-Type Natriuretic Peptide 1405 PG/ML Lipase 168 U/L White Blood Count 5.3 TH/MM3 Red Blood Count 5.36 MIL/MM3 Hemoglobin 15.8 GM/DL Hematocrit 49.1 % Mean Corpuscular Volume 91.6 FL Mean Corpuscular Hemoglobin 29.5 PG Mean Corpuscular Hemoglobin Concent 32.2 % Red Cell Distribution Width 13.3 % Platelet Count 146 TH/MM3 Mean Platelet Volume 8.6 FL Prothrombin Time 11.5 SEC Prothromb Time International Ratio 1.0 RATIO Activated Partial Thromboplast Time 39.6 SEC Total Creatine Kinase 72 U/L Troponin I 0.49 NG/ML Triglycerides Level 97 MG/DL Cholesterol Level 141 MG/DL LDL Cholesterol 72 MG/DL HDL Cholesterol 49.3 MG/DL Cholesterol/HDL Ratio 2.86 RATIO Objective Remarks GENERAL: Well-developed patient, in no apparent distress. SKIN: No rashes, ecchymoses or lesions. Cool and dry. HEAD: Atraumatic. Normocephalic. No temporal or scalp tenderness. EYES: Pupils equal round and reactive. NECK: Trachea midline. No JVD or lymphadenopathy. Supple. CARDIOVASCULAR: Regular rate and rhythm without murmurs, gallops, or rubs. RESPIRATORY: Decreased breath sounds no wheezing or crackles. GASTROINTESTINAL: Abdomen soft, nondistended. Non tender. MUSCULOSKELETAL: Extremities without clubbing, cyanosis. Positive for lower extremity edema. NEUROLOGICAL: Awake and alert. No Focal deficit. Medications and IVs Current Medications Medications (Trade) Dose Ordered Sig/Celso Route Start Time Stop Time Status Last Admin (NS Flush) 2 ml UNSCH PRN IVF 02/28/17 13:30 (Heparin Inj) 5,000 units UNSCH PRN IV 02/28/17 23:30 (Heparin Inj) 2,500 units UNSCH PRN IV 02/28/17 23:30 Heparin Sodium/ Dextrose 250 ml @ 9.36 mls/hr TITRATE PRN IV 02/28/17 17:30 02/28/17 18:12 (Altace) 10 mg DAILY PO 03/01/17 09:00 03/01/17 09:31 (Pravachol) 80 mg HS PO 02/28/17 21:00 02/28/17 21:44 (NS Flush) 2 ml BID IV FLUSH 02/28/17 21:00 03/01/17 09:30 (NS Flush) 2 ml UNSCH PRN IV FLUSH 02/28/17 18:15 (Aspirin Chew) 162 mg DAILY PO 03/01/17 09:00 03/01/17 09:30 (Lopressor) 25 mg BID PO 02/28/17 21:00 03/01/17 09:30 (Nitroglycerin 2% Oint) 1 inch Q6HR TOP 02/28/17 19:30 03/01/17 00:37 (Nitrostat Sl) 0.4 mg Q5M PRN SL 02/28/17 18:15 (Tylenol) 500 mg Q4H PRN PO 02/28/17 18:15 (Morphine Inj) 2 mg Q5M PRN IV PUSH 02/28/17 18:15 (Pepcid) 20 mg BID PO 02/28/17 21:00 03/01/17 09:31 (D50w (Vial) Inj) 50 ml UNSCH PRN IV PUSH 02/28/17 18:15 (Glucagon Inj) 1 mg UNSCH PRN OTHER 02/28/17 18:15 (NovoLOG SUPPLEMENTAL SCALE) 1 ACHS SLIDING SCALE SQ 02/28/17 21:00 02/28/17 21:00 (Lasix Inj) 20 mg DAILY IV PUSH 03/01/17 09:00 03/01/17 09:29 A/P Assessment and Plan 76-year-old female with history of coronary disease status post stent placement and balloon angioplasty, history of [place], history of left bundle branch block, COPD, type 2 diabetes, hypertension, hyperlipidemia who presented with shortness of breathing, chest pain, lower extremity edema 1. Atypical chest pain, in a patient with CAD and history of [place], Left Bundle branch block, status post PCI and stent placement, Tobacco dependence, elevated troponin 0.71, Chest x-ray shows left pleural effusion or consolidation. CTA showed mild bilateral pleural effusion. received Aspirin and Heparin drip recommended by ER specialist and continued by aircraft electrical systems specialist Doctor Van contacted by ER specialist concern for ACS, NSTEMI, discussed with Doctor Otoole he states Doctor Koko is coming to see the patient. 2. Tobacco dependence. strongly recommended to stop smoking. 3. CHF exacerbation the patient came with Dyspnea, CTA showed bilateral pleural effusion, BNP 1405, Lasix given strict Is and Os. continue Oxygen to keep saturation over 92% and diuretics continue. 4. Hypertension controlled. 5. Hyperlipidemia continue Home medicines. 6. COPD continue Bronchodilator, Mucolytic and incentie spirometry. 7. Fibromyalgia by history . 8. DM II continue sliding scale patient at this time NPO. DVT prophylaxis -On heparin drip. Discussed Condition With Patient and nurse Miss Young, all questions answered to the best of my abilities. Discharge Planning Once cleared by aircraft electrical systems specialist. Barrett Doshi MD Mar 01, 2017 11:27
[2017-03-01 14:40] LABS: APTT (PATIENT) 39.9 SEC (24.3-30.1)
[2017-03-01] MEDS: RESP: ALBUTEROL 2.5 MG/IPRATROPIUM 0.5 MG NEB (SCH) NEB ×2 (15:57→20:08)
--- NOTE | 2017-03-01 17:13 | EKG ---
Date Performed: 03/01/2017 Time Performed: 00:38:28 PTAGE: 76 years EKG: Sinus rhythm Left bundle branch block Abnormal ECG PREVIOUS TRACING : 02/28/2017 17.07 Compared to prior tracing no significant change DOCTOR: Alfredo Van Interpretating Date/Time 03/01/2017 17:12:00
[2017-03-01] MEDS ORDERED: DIAZEPAM 10 MG TAB PO SCH (17:30)
[2017-03-01] MEDS ORDERED: ASPIRIN 325 MG TAB PO SCH (17:30)
[2017-03-01] MEDS ORDERED: diphenhydrAMINE HCL 50 MG CAP PO SCH (17:30)
--- NOTE | 2017-03-01 17:32 | ECHRPT ---
Indication: CHEST PAIN CONCLUSIONS Severely dilated left ventricle. Mild concentric left ventricular hypertrophy. There is diffuse global hypokinesis with distinct regional wall motion abnormalities. Doppler parameters are consistent with a pseudonormal left ventricular filling pattern with concomin ant abnormal relaxation and increased filling pressure (grade 2 diastolic dysfunction). The left ventricular systolic function is severely reduced with an estimated ejection fraction in th e range of 20-25%. The right ventricle is mildly dilated. The left atrial size is moderately dilated. The right atrial size is [id number] dilated. A possible atrial level shunt is demonstrated by color flow Doppler interrogation, clinical correlat ion recommended. Mild thickening of the mitral valve leaflets. Moderate mitral valve regurgitation. Aortic valve sclerosis is present. Trace aortic valve regurgitation. Mild aortic valve stenosis. There is estimated moderate pulmonary hypertension present (range 50-60 mmHg). There is trace tricuspid valve regurgitation. The inferior vena cava (IVC) is normal in size. There is less than 50% respiratory change in dimension of the inferior vena cava (abnormal). BP: 94 / 67 HR: Rhythm: Sinus, PVCs MEASUREMENTS (Male / Female) Normal Values Technical Quality:Fair 2D ECHO LV Diastolic Diameter PLAX 7.2 cm 4.2 - 5.9 / 3.9 - 5.3 cm LV Systolic Diameter PLAX 6.9 cm IVS Diastolic Thickness 1.0 cm 0.6 - 1.0 / 0.6 - 0.9 cm LVPW Diastolic Thickness 0.9 cm 0.6 - 1.0 / 0.6 - 0.9 cm LV Relative Wall Thickness 0.3 LVOT Diameter 2.1 cm Aortic Root Diameter 3.7 cm LA Systolic Diameter LX 4.4 cm 3.0 - 4.0 / 2.7 - 3.8 cm DOPPLER AV Peak Velocity 131.0 cm/s AV Peak Gradient 6.9 mmHg AV Mean Gradient 4.0 mmHg AV Velocity Time Integral 21.8 cm LVOT Peak Velocity 72.9 cm/s LVOT Peak Gradient 2.1 mmHg LVOT Velocity Time Integral 13.3 cm AV Area Cont Eq vti 2.1 cm AV Area Cont Eq pk 1.9 cm Mitral E Point Velocity 105.0 cm/s Mitral A Point Velocity 105.0 cm/s Mitral E to A Ratio 1.0 LV E' Lateral Velocity 28.9 cm/s Mitral E to LV E' Lateral Ratio 3.6 LV E' Septal Velocity 8.1 cm/s Mitral E to LV E' Septal Ratio 13.0 TR Peak Velocity 324.0 cm/s TR Peak Gradient 42.0 mmHg Right Atrial Pressure 10.0 mmHg Pulmonary Artery Systolic Pressu 52.0 mmHg Right Ventricular Systolic Press 52.0 mmHg PV Peak Velocity 50.4 cm/s PV Peak Gradient 1.0 mmHg FINDINGS LEFT VENTRICLE Severely dilated left ventricle. Mild concentric left ventricular hypertrophy. There is diffuse global hypokinesis with distinct regional wall motion abnormalities. Doppler parameters are consistent with a pseudonormal left ventricular filling pattern with concomin ant abnormal relaxation and increased filling pressure (grade 2 diastolic dysfunction). The left ventricular systolic function is severely reduced with an estimated ejection fraction in th e range of 20-25%. RIGHT VENTRICLE The right ventricle is mildly dilated. LEFT ATRIUM The left atrial size is moderately dilated. RIGHT ATRIUM The right atrial size is [id number] dilated. ATRIAL SEPTUM A possible atrial level shunt is demonstrated by color flow Doppler interrogation, clinical correlat ion recommended. AORTA The aortic root and proximal ascending aorta are normal in size on limited imaging. MITRAL VALVE Mild thickening of the mitral valve leaflets. Moderate mitral valve regurgitation. AORTIC VALVE Aortic valve sclerosis is present. Trace aortic valve regurgitation. Mild aortic valve stenosis. TRICUSPID VALVE Structurally normal tricuspid valve. There is estimated moderate pulmonary hypertension present (range 50-60 mmHg). There is trace tricuspid valve regurgitation. PULMONARY VALVE No pulmonary valve regurgitation or stenosis. VESSELS The inferior vena cava (IVC) is normal in size. There is less than 50% respiratory change in dimension of the inferior vena cava (abnormal). PERICARDIUM No pericardial effusion. Jonny Guillen MD, FACC (Electronically Signed) Final Date:01 March 2017 17:32
--- NOTE | 2017-03-01 18:33 | MB ---
cc: [facility] B[facility] DATE OF CONSULTATION 03/01/17 REASON FOR CONSULTATION Unstable angina. HISTORY OF PRESENT ILLNESS The patient is a 76-year-old white female with a history of coronary artery disease, COPD, diabetes, hypertension who presented to the hospital with chest pain. For the last four weeks, she has had daily substernal chest heaviness associated with shortness of breath without nausea or diaphoresis. The chest discomforts initially were precipitated by minimal to mild exertion such as walking her small dogs. Recently, she has had episodes at rest. She has had no episodes of chest pain lasting more than 15 minutes. The patient denies pleurisy, syncope, near-syncope, palpitations. The patient does report occasional paroxysmal nocturnal dyspnea as well as increased pedal edema in the last several weeks. She reports compliance with medications. PAST MEDICAL HISTORY 1. Uterine cancer status post hysterectomy in 1978. 2. Coronary disease status post coronary stenting in 1999 in [place], status post angioplasty without stenting 2005 in [facility]. 3. Hyperlipidemia. 4. COPD. 5. Diabetes 6. Hypertension 7. Migraine headaches. PAST SURGICAL HISTORY 1. Excision of a nasopharyngeal mass 2010. 2. Hysterectomy. 3. Cholecystectomy. 4. Appendectomy. MEDICATIONS Cardiac medications at home 1. Simvastatin 40 mg q.h.s. 2. Altace 10 mg daily. 3. Metformin 500 mg b.i.d. ALLERGIES PENICILLIN FAMILY HISTORY The patient's father from a ruptured gallbladder. Her mother from pancreatic cancer. Her brother sustained a myocardial infarction in his 40s. SOCIAL HISTORY The patient smokes about a half a pack of cigarettes per day. She denies alcohol abuse. REVIEW OF SYSTEMS As in the history of present illness, otherwise, negative or noncontributory. She also denies visual changes, abdominal pain, melena, dyspepsia, bright red blood per rectum, fevers, wheezing. At this time, she does have a mild headache. PHYSICAL EXAMINATION VITAL SIGNS: Blood pressure 112/68 with a pulse of 68, respirations 18. GENERAL: She is a well-developed, well-nourished white female in no acute distress. HEENT: Jugular venous pressure is normal. Carotid pulses are 2+ bilaterally and without bruits. CHEST: Examination of the chest reveals diminished breath sounds diffusely. CARDIAC: She has a regular rhythm and rate without S3-S4 or murmur. ABDOMEN: She has a soft, nontender abdomen. Bowel sounds are present. There is no definite hepatosplenomegaly. EXTREMITIES: No clubbing, cyanosis or edema. Peripheral pulses are normal throughout. CARDIOLOGY STUDIES EKG shows sinus rhythm, left bundle-branch block, T-wave inversion consider anterolateral ischemia. IMAGING STUDIES Chest x-ray Shows left basilar consolidation/effusion. LABORATORY DATA WBC 5.3, hemoglobin 15.8, platelets 146, potassium 3.6, BUN 22, creatinine 0.75, troponin 0.67, total cholesterol 141, LDL 72, HDL 49, triglycerides 97, CK 86. IMPRESSION Unstable angina in this 76-year-old white female with a history of known coronary disease status post percutaneous coronary interventions in the past, history of diabetes, COPD, hypertension. At this time, she is chest pain free. The pattern of her angina in the last four weeks clearly has been escalating in severity. She has also had episodes at rest. EKG does have some changes suggestive of ischemia in the anterolateral region. Because of the instability of her symptoms and the abnormal troponin level, she has been recommended cardiac catheterization with possible percutaneous coronary intervention, the risks of which have been explained to her including but not limited to , myocardial infarction, stroke, arrhythmia, bleeding, infection, renal failure. She agrees to proceed. RECOMMENDATIONS 1. Cardiac catheterization tomorrow morning. 2. Continue statin therapy. 3. Continue the metoprolol and nitrates started here in the hospital. 4. Long-term smoking cessation efforts. MD ANILA Benavides/ /5:17 PM /6:15 PM DESHAWN
[2017-03-01] MEDS: HEPARIN-D5W 25,000 U/250 ML 250 ML IV PRN (18:34)
[2017-03-01 21:39] LABS: APTT (PATIENT) 36.6 SEC (24.3-30.1)
[2017-03-01] MEDS: PRAVASTATIN SOD 80 MG TAB PO SCH (22:10)
[2017-03-01] MEDS: guaiFENesin E.R. 600 MG TAB PO SCH (22:10)
[2017-03-02] VITALS (26 sets, daily range): BP systolic 93–131; BP diastolic 59–77; PULSE 58–87; RESP 18–20; TEMP 97.4–98.2; O2SAT 94–99
[2017-03-02] MEDS: NITROGLYCERIN 2% OINT 1 GM PACKET TOP SCH ×2 (00:06→05:53)
[2017-03-02] MEDS: RESP: ALBUTEROL 2.5 MG/IPRATROPIUM 0.5 MG NEB (SCH) NEB ×6 (03:01→19:11)
[2017-03-02] MEDS: SODIUM CHLOR 0.9% 1000 ML INJ 1,000 ML IV SCH ×2 (03:23→23:23)
[2017-03-02 06:34] LABS: APTT (PATIENT) 52.9 SEC (24.3-30.1)
[2017-03-02] MEDS ORDERED: MIDAZOLAM HCL 2 MG/2 ML VIAL ONE (07:24)
[2017-03-02] MEDS: INSULIN ASPART SUPPLEMENTAL SCALE SQ SCH ×4 (07:25→20:23)
[2017-03-02] MEDS: SODIUM CHLORIDE 0.9% FLUSH 10 ML FLUSH IV FLUSH SCH ×2 (07:26→20:15)
[2017-03-02] MEDS ORDERED: IOHEXOL 350 MG/ML 50 ML BTL (for Cath Lab) OTHER ONE (07:30)
[2017-03-02] MEDS ORDERED: IOHEXOL 350 MG/ML 100 ML BTL (for Cath Lab) OTHER ONE (07:30)
[2017-03-02] MEDS ORDERED: VERAPAMIL HCL 5 MG/2 ML VIAL ONE (07:31)
[2017-03-02] MEDS ORDERED: HEPARIN SODIUM - IV 10,000 UNITS/10 ML VIAL ONE (07:31)
[2017-03-02] MEDS ORDERED: MIDAZOLAM HCL 2 MG/2 ML VIAL IV ONE (07:35)
[2017-03-02] MEDS ORDERED: TIROFIBAN INFUSION INJ 250 ML IV ONE (07:53)
[2017-03-02] MEDS ORDERED: TICAGRELOR 90 MG TAB PO ONE ×2 (08:00→08:31)
[2017-03-02] MEDS ORDERED: HEPARIN SODIUM - IV 10,000 UNITS/10 ML VIAL IV ONE (08:00)
[2017-03-02] MEDS ORDERED: SODIUM CHLOR 0.9% 1000 ML INJ 1,000 ML IV SCH (08:46)
[2017-03-02] MEDS ORDERED: TIROFIBAN INFUSION INJ 250 ML IV SCH (08:46)
--- NOTE | 2017-03-02 08:52 | PD.CARD.PN ---
Subjective Subjective Remarks No further CP. No dyspnea this morning. Denies dizziness, palpitations. Objective Medications Item Value Date Time Ramipril 10 mg 03/01/17 0900 (Altace) DAILY/PO 03/01/17 0931 Aspirin 162 mg 03/01/17 0900 (Aspirin Chew) DAILY/PO 03/01/17 0930 Furosemide 20 mg 03/01/17 0900 (Lasix Inj) DAILY/IV PUSH 03/01/17 09 Pravastatin Sodium 80 mg 02/28/17 2100 (Pravachol) HS/PO 03/01/17 2210 Metoprolol 25 mg 02/28/17 2100 Tartrate BID/PO 03/01/17 2210 (Lopressor) Nitroglycerin 1 inch 02/28/17 1930 (Nitroglycerin Q6HR/TOP 03/02/17 0553 2% Oint) Heparin Sodium/ 250 ml @ 9.36 mls/hr 02/28/17 1730 Dextrose TITRATE PRN/IV 03/01/17 1834 Vital Signs / I&O Vital Signs Date Time Temp Pulse Resp B/P (MAP) Pulse Ox O2 Delivery O2 Flow Rate FiO2 03/02/17 06:09 69 03/02/17 05:02 64 03/02/17 04:11 87 03/02/17 03:00 62 03/02/17 03:00 97.5 67 18 93/59 (70) 94 03/02/17 02:00 58 03/02/17 01:00 61 03/02/17 00:00 61 03/01/17 23:00 69 03/01/17 23:00 98.0 59 18 113/79 (90) 94 03/01/17 22:00 84 03/01/17 21:00 76 03/01/17 20:08 91 21 03/01/17 20:00 68 03/01/17 19:00 98.3 68 18 103/51 (68) 91 03/01/17 19:00 66 03/01/17 18:00 66 03/01/17 17:00 68 03/01/17 16:00 98.4 60 18 112/68 (83) 99 03/01/17 16:00 64 03/01/17 15:00 71 03/01/17 14:00 81 03/01/17 13:00 61 03/01/17 12:00 62 03/01/17 11:23 98.6 60 18 112/68 (83) 99 03/01/17 11:00 74 03/01/17 10:00 80 03/01/17 09:00 64 I/O 03/01/17 03/01/17 03/01/17 03/02/17 03/02/17 03/02/17 07:00 15:00 23:00 07:00 15:00 23:00 Intake Total 240 ml 723 ml 480 ml Balance 240 ml 723 ml 480 ml Intake Oral 240 ml 625 ml 480 ml IV Total 98 ml # Voids 2 4 3 # Bowel Movements 0 1 Physical Exam GENERAL: Well developed, well nourished. No acute distress. HEENT: Jugular venous pressure is normal. CHEST: Lungs clear to auscultation anteriorly. CARDIAC: Regular rate and rhythm without S3, S4. I-II/ systolic murmur left lower sternal border. ABDOMEN: Soft, nontender, no hepatosplenomegaly. Bowel sounds present. EXTREMITIES: No clubbing, cyanosis, or edema. Laboratory Laboratory Tests Test 03/01/17 14:13 03/01/17 21:04 03/02/17 04:25 Activated Partial Thromboplast Time 39.9 SEC 36.6 SEC 52.9 SEC Assessment and Plan Problem List: (1) Non-STEMI (non-ST elevated myocardial infarction) ICD Codes: I21.4 - Non-ST elevation (NSTEMI) myocardial infarction Status: Acute Plan: Stable overnight. Cath today shows two high grade lesions in very large distal RCA, both stented with drug eluting stents. REC overnight observation discharge in am if stable, 3-4 week f/u with me continue Brilinta 90 mg bid, and daily baby aspirin (2) CHF (congestive heart failure) ICD Codes: I50.9 - Heart failure, unspecified Status: Acute Plan: Stable overnight. EF by cath 10-15%. Appears she has component of non- ischemic cardiomyopathy as well. REC increase metoprolol to 50 mg bid, continue ramipril can change Lasix to oral recheck echo in 90 days; if EF < 35 % consider ICD implant Code Status full code Discussed Condition With patient and sister Problem Qualifiers (1) CHF (congestive heart failure): Qualified Codes: I50.9 - Heart failure, unspecified Tan,Jair H. MD Mar 02, 2017 08:52
[2017-03-02] MEDS ORDERED: MISC INFORMATION XX ONE (09:00)
[2017-03-02] MEDS ORDERED: SODIUM CHLORIDE 0.9% FLUSH 5 ML FLUSH IVF PRN (09:00)
--- NOTE | 2017-03-02 09:01 | MA ---
cc: STERLING BOWER DATE 03/02/2017 PROCEDURE Left heart catheterization, selective coronary angiography, left ventriculography, angioplasty and stent x 2 of the distal right coronary artery. PROCEDURE NOTES The patient was brought to the cardiac catheterization laboratory in fasting state after having signed informed consent. The right radial region was prepped and draped as per policy and anesthetized with 1% lidocaine. Arterial access was obtained via the right radial artery and a 6-Guyanese sheath placed. However, the innominate vessel was too tortuous to traverse easily. It was decided to perform the case through a right femoral artery approach. The right groin had been previously prepped and draped as per policy. It was anesthetized with 1% lidocaine. Arterial access was obtained via the right femoral artery and a 6-Guyanese sheath placed. Coronary arteriography was performed using 6-Guyanese Naun left 4.5 and right progressive catheters. Left ventriculography was done using a standard 6-Guyanese pigtail. Percutaneous coronary intervention was done as described below. There were no apparent immediate complications. HEMODYNAMIC DATA Left ventricle 138 with an end-diastolic pressure of 22. Aorta 132/74 with a mean of 96. There was no significant transvalvular aortic gradient on pullback of the pigtail catheter. CORONARY ARTERIOGRAPHY The left main is a very large vessel with minimal diffuse luminal irregularities. There may be as much as 15% distal stenosis. The left anterior descending is a small to medium sized vessel giving rise to a small diagonal. In the proximal LAD, right at the takeoff of the first diagonal, the proximal LAD has 30% stenosis. The mid to distal LAD and the diagonal have minimal luminal irregularities. There is a very large ramus intermedius which has 15% stenosis very proximally. The left circumflex is a small vessel giving rise to a small obtuse marginal. Overall, there are minimal luminal irregularities in the left circumflex system. The right coronary artery is a very large super dominant vessel which is diffusely diseased. A stent is evident in the proximal portion and there is mild to moderate diffuse re-stenosis of the stent resulting in up to 40% stenosis. The midvessel probably has up to 25% stenosis. In the distal right coronary, prior to the takeoff of the posterior descending artery, there is 95-99% stenosis. In the distal right coronary, past the takeoff of the posterior descending artery, there is 70% somewhat eccentric stenosis. LEFT VENTRICULOGRAPHY Contrast injection of the left ventricle reveals severe global hypokinesis. There is also mild mitral regurgitation. Estimated ejection fraction is 10-15%. PERCUTANEOUS CORONARY INTERVENTION DESCRIPTION Aggrastat was given as per protocol. Adequate heparin was given during the procedure to achieve an ACT greater than 250 seconds. Initially we tried to use a 6-Guyanese hockey-stick guiding catheter with side holes. We were unable to adequately re-engaged the right coronary. It was exchanged for a 6-Guyanese ART 3.5 guiding catheter. Using a 0.014 Prowater guidewire, the distal disease was crossed without difficulty and the tip of the wire positioned very distally. Predilation of the more proximal lesion was done using a 2.0-mm Euphora balloon catheter. Further predilation was done using a 3.0 mm noncompliant Euphora balloon catheter which was also inflated in the more distal lesion. Stenting of the more distal lesion was done using a 3.0 x 15-mm Resolute Cruz stent which was deployed at 12 to 13 atmospheres for 30 seconds. We tried to advance a 3.5 x 15-mm Resolute Cruz stent to the more proximal lesion, but were unable to advance it passed the midvessel. A balanced middle weight guidewire was advanced into the vessel alongside the Prowater guidewire. The stent was then easily advanced over the balanced middle weight guidewire and deployed using a balloon inflation of 14 atmospheres for 30 seconds. Final angiography shows overall good results with reduction of the two lesions to roughly 0% residual with no definite evidence for dissection or distal embolization. The patient tolerated the procedure well. She was thoroughly sedated throughout the case. CONCLUSIONS 1. Severe single-vessel coronary artery disease. 2. Severe left ventricular systolic function with estimated ejection fraction of 10-15%, suggesting a component of nonischemic cardiomyopathy as well. 3. Status post angioplasty and stent in two sites in the distal right coronary artery. MD ANILA Benavides/DIEGO /8:35 AM /8:47 AM DESHAWN
--- NOTE | 2017-03-02 09:16 | CATHPROC ---
[address] HIS Report Study Information Study Number Admission Scheduled Start Study Start [id number] Feb 28 2017 5:40PM 03/02/2017 Mar 02 2017 7:10AM [place] [facility] Cardiac Catheterization Admit Source Facility Department Other [facility] - [facility] Physician and Clinical Staff Initial Jair John Car Wash Attendant Automatic Ibis Stone,MARGAUX Car Wash Attendant Automatic Jeremy DAMICO, Sachin Recorder Rivas Marquez,ACCOUNT MANAGER EMPLOYEE BENEFITS(BS) Recorder Yuli Loera,ROSENDO TECH2 Scrub Tor Bennett,ACCOUNT MANAGER EMPLOYEE BENEFITS(BS) Scrub Thao Butt,RT(R) Procedures Performed Procedure Location (Site) Vessel Name Angiogram LV LV Ventricle Coronary Angiograms LCA Left Coronary Coronary Angiograms RCA Right Coronary Coronary Angiograms Subclav. Art. (Rt.) Subclavian Art. Drug Eluting Inflatio RCA Dist Right Coronary PTCA RCA Dist Right Coronary Wire insertion Fem Art (right) Femoral Art Equipment Time Medical Oncologist Description Size Mfg Part Number Used/Scraped [id number] 07:54 [employer] WIRE, ASAHI PROWATER 180CM 180CM Used *[id number] WIRE, BALANCE MIDDLEWEIGHT [id number] 08:24 [employer] 190CM Used 190CM *[id number] TRANSDUCER, TRUWAVE [id number] 07:16 JENSEN MORALES * Used W/STOCKCOCK *[id number] ART 3.5 GUIDE CATHETER [id number] 08:02 [employer] FR 6 Used RUNWAY *[id number] 534-676T *[id number] [id number] *[id number] 534-620T *7879861 534-617T *[id number] 534-650S *[id number] WIRE, HYDROSTEER 150CM [id number] 07:41 DAIG/ST. [employer] MEDICAL 150CM Used ANGLED GLIDE *[id number] 127168 07:16 MALLINCKRODT SYRINGE, ANGIOMAT 150ML 150ML *[id number]/[id number] Used 2SUB MARINE POLYMER 09:02 PATCH, SYVEK EXCEL (PACER) 400-16-05 Used [employer] MEDICAL CONCEPT DRAPE, RADIAL FEMORAL FULL 07:16 * [id number] *[id number] Used DEVELOPMENT BODY [id number] 07:16 MEDLINE INDUSTRIES PACK, CCL CUSTOM * Used *[id number] 07:16 MEDLINE INDUSTRIES SUPPORT, ARTERIAL ADULT 78143 *2168729 Used [id number] 07:16 MEDLINE PACER PEN, SKIN DUAL W/ RULER * Used *[id number] 08:04 MEDTRONIC BALLOON, 2.0 X 15MM EUPHORA 15MM Used *[id number] BALLOON, 3.25 X 15MM NC [id number] 08:06 MEDTRONIC 15MM Used EUPHORA *7865696 [id number] 08:11 MEDTRONIC STENT, 3.0 15MM [place] 3.0 15MM Used *[id number] [id number] 08:18 MEDTRONIC STENT, 3.5 15MM [place] 3.5 15MM Used *5299645 [id number] 08:05 [employer] 30 TRACY INDEFLATOR Used *7408607 BAND, RADIAL COMPRESSION TR [id number] 08:40 [employer] MED[employer] 24CM Used SHORT 24 *[id number] SHEATH, FR6 RADIAL PRELUDE 07:16 [employer] MEDICAL FR 6 [id number] Used EASE 11CM [id number] 07:42 [employer] MEDICAL SHEATH, FR6.5 PRELUDE 11CM FR 6.5 038ACT Used *[id number]- 08:33 [employer] SHEATH, FR7.5 PRELUDE 11CM FR 7.5 11CM Used 038ACT [id number] 07:16 [employer] WIRE, EXCHANGE 260CM 3MMJ 260CM Used *[id number] 07:16 NAMIC MANIFOLD, 4 PORT * Used *8787133 08:29 NYCOMED OMNIPAQUE, 300 MG, 50ML 50ML [id number] Used 07:16 [employer]COMED OMNIPAQUE, 350 MG, 150ML 150ML [id number] Used [id number] 07:16 [employer] MEDICAL BLANKET,WARM AIR CCL * Used *[id number] CATHETER, FR5 OPTITORQUE [id number] 07:31 [employer] MEDICAL FR 5 Used RADIAL TIG 4.0 *[id number] Equipment Model, Serial, Lot Number and Expiration Data Description Model Number Serial Number Lot Number Expiration Date BALLOON, 3.25 X 15MM NC [id number] 10-26-2018 EUPHORA PATCH, SYVEK EXCEL (PACER) [id number] 07-12-2018 STENT, 3.0 15MM [place] [id number] 09-28-2018 [id number] STENT, 3.5 15MM [place] [id number] 12-05-2018 755784 WIRE, HYDROSTEER 150CM [id number] 11-09-2019 ANGLED GLIDE History: Current Medications Medication Dosage/Unit Route Frequency Last Date/Time Taken Statins (any) History: Allergies Allergy Reaction penicillin G Drowsiness History: Risk Factors Family History of Hypertension Dyslipidemia Previous MA Previous Heart Failure Premature CAD Yes Yes Yes Yes Yes Prior Valve Prior PCI Prior PCIDate Prior CABG Surgery No Yes 06/11/2005 No Cerebrovascular Peripheral Artery Chronic Lung On Dialysis Diabetes Diabetes Therapy Disease Disease Disease No No No Yes Yes Oral History: Symptoms/Diagnosis Selection Items Chest pain BRANNON SOB History: Stress Tests Stress or Imaging Studies Performed No History: Other Disease Selection Items Cancer HTN History: MA/CV Data Previous Cath Date 06/11/2005 History: Other Current Smoker Method Packs a Day Yes Cigarettes 1 Labs Hgb (g/dl) Hct (%) WBC (l/cumm) Platelets (thousands) 11.60-17.00 35.00-51.00 4.00-11.00 150.00-450.00 15.8 49.1 5.3 146 Glucose (mg/dl) BUN (mg/dl) Creatinine (mg/dl) BUN:Creatinine (1:x) 74.00-106.00 7.00-18.00 0.50-1.30 10.00-20.00 128 22 0.7 31.4 Na (meq/l) K (meq/l) 136.00-145.00 3.50-5.10 146 3.6 INR (PTT:PT) 0.90-1.10 1 Troponin I (ng/ml) CPK-MB (ng/ML) 0.02-0.05 0.50-3.60 0.7 Not Drawn Medication Medication Total Dose (Bolus/Oral) Medication Total Dosage/Unit 1% XYLOCAINE 23 mL AGGRASTAT BOLUS 37.5 mL BRILINTA 180 mg HEPARIN 5000 units NTG (IC) 100 mcg RADIAL COCKTAIL 5 mL (Bolus) VERSED 2 mg Medications (Bolus/Oral) Medication Time Given Dosage/Unit Administered By Reason VERSED 03/02/2017 7:35:02 AM 2 mg Ibis Stone 2 mg VERSED given in lab by Ibis Stone RN in Right Antecubital via Peripheral IV. Ordered by Jair Oreilly. 1% XYLOCAINE 03/02/2017 7:37:03 AM 3 mL Jair Maddox 3 mL 1% XYLOCAINE given in lab by Jair Maddox in Right Radial via Subcutaneous. Ntg 200mcg Verapamil 2.5mg Heparin RADIAL COCKTAIL 03/02/2017 7:39:08 AM 5 mL (Bolus) Jair Maddox 2500U 5 mL (Bolus) RADIAL COCKTAIL given in lab by Jair Maddox in Right Radial via Radial. Using [Solution Name]. Reason: Ntg 200mcg Verapamil 2.5mg Heparin 2500U. 1% XYLOCAINE 03/02/2017 7:44:47 AM 20 mL Jair Maddox 20 mL 1% XYLOCAINE given in lab by Jair Maddox in Right Groin via Subcutaneous. HEPARIN 03/02/2017 7:54:00 AM 5000 units Sachin Luna RN 5000 units HEPARIN given in lab by Sachin Luna RN in Right Antecubital via Peripheral IV. Ordered by Jair Maddox. AGGRASTAT BOLUS 03/02/2017 7:55:01 AM 37.5 mL Sachin Luna RN 37.5 mL AGGRASTAT BOLUS given in lab by Sachin Luna RN in Right Antecubital via Peripheral IV. Order ed by Jair Maddox. NTG (IC) 03/02/2017 8:18:53 AM 100 mcg Jair Maddox 100 mcg NTG (IC) given in lab by Jair Maddox via Intra-coronary. Ordered by Jair Maddox. BRILINTA 03/02/2017 8:36:09 AM 180 mg Sachin Luna RN 180 mg BRILINTA given in lab by Sachin Luna RN via Oral. Medication (Drip) Medication Time Given Dosage/Unit Concentration/Unit Diluent (ml) Solution AGGRASTAT DRIP 03/02/2017 7:57:02 AM 0.15 mcg/kg/min 12.5 mg 250 NaCl .9 0.15 mcg/kg/min AGGRASTAT DRIP given in lab by Sachin Luna RN in Right Antecubital via Peripheral IV . Pump/Drip Flow = 13.91 ml/hr using NaCl .9 with a concentration of 12.5 mg in 250 ml. Ordered by Jair Maddox. IV Solutions 03/02/2017 7:16:36 AM 0 mL (IV) 500 NaCl .9 Patient arrived on IV Solutions in Right Antecubital via Peripheral IV. Pump/Drip Flow = 20 ml/hr usi ng NaCl .9. Ordered by Jair Maddox. Initial Case Assessment Cardiovascular HR Rhythm NIBP Chest Pain 70 nsr 121/74 0 Edema Present Skin color Skin None Normal Warm Dry Circulatory - Right Pulses Dorsalis Pedis Femoral Radial 1 1 2 Scale (0,1,2,3,4,d) Scale (0,1,2,3,4,d) Neurological State Oriented to time-place- Alert Moves all extremities person Respiration - General Respiration Rate SpO2 (%) (B/min) 15 96 Final Case Assessment Cardiovascular HR Rhythm NIBP Chest Pain 76 sr 114/77 0 Circulatory - Right Pulses Dorsalis Pedis Femoral Radial 1 1 2 Scale (0,1,2,3,4,d) Scale (0,1,2,3,4,d) Neurological State Oriented to time-place- Alert Moves all extremities person Respiration - General Respiration Rate SpO2 (%) (B/min) 24 91 Chronological Log Time Study Chronological Log 7:12:18 Patient arrived via Bed. 7:12:22 Patient Name, D.O.B, / Armband Verified By R.N. 7:12:26 Consent signed by the physician and the patient and verified by the [facility] staff. 7:16:29 Pre-op and post- op instructions given; patient acknowledges understanding of instructions. 7:16:29 Verbal Stimulation=2 Physical Stimulation=2 Airway=2 Respiration=2 TOTAL=8. (0=absent, 1=waddell ited, 2=present) 7:16:30 Presedation assessment performed by [facility]er RN. 7:16:30 Allens test performed on the right radial and ulnar artery. 7:16:31 Immediate Presedation assesment performed by physician. 7:16:32 Patient has been NPO for More than 6Hrs. 7:16:33 Skin Breakdown- none per patient 7:16:34 Patient Warmer Placed on the Table. 7:16:34 Efren Prominences Protected 7:16:36 A # 20 IV was noted in the Antecubital (right). Grade = 0 Patient arrived on IV Solutions in Right Antecubital via Peripheral IV. Pump/Drip Flow = 20 ml/h r using NaCl .9. Ordered 7:16:36 by Jair Maddox. 7:16:37 History and physical on the chart or being dictated. Vitals capture started with the following parameters, Patient=Adult, Interval=5 min, Initial Pre vqusn=949 mmHg, 7:18:54 Deflation Rate=5 mmHg, Cuff placed on Right Arm 7:19:31 HR=68 bpm, KOMV=828/83 mmhg, SpO2=95.0 %, Resp=16 B/min, Pain=0, Adair=10, Rodriguez=2 7:22:42 Reference ECG taken 7:24:28 HR=68 bpm, QSYK=380/74 mmhg, SpO2=96 %, Resp=16 B/min, Pain=0, Adair=10, Rodriguez=2 7:26:43 Right Radial and groin(s) prepped with 2% chlorhexidine, and with a 3 min. waiting time. Assessment: Initial Case, HR=70 BPM, Rhythm=nsr, TGPM=497/74 mmhg, Chest Pain=0, Edema=None, Col or=Normal, Skin = Warm, Dry 7:26:53 Right Pulses: Harley Ped=1, Femoral=1, Radial=2 Neurological: State=Alert, Ox3, STRONG Respiration: Resp=15 B/min, SpO2=96 % 7:27:45 MD paged 7:28:57 Pressure channel 1 zeroed. 7:29:29 HR=69 bpm, HCMR=723/81 mmhg, SpO2=98.0 %, Resp=16 B/min, Pain=0, Adair=10, Rodriguez=2 7:29:53 MD responded 7:30:56 MD arrived. 7:34:30 HR=64 bpm, OIKH=187/70 mmhg, SpO2=97.0 %, Resp=16 B/min, Pain=0, Adair=10, Rodriguez=2 7:35:02 2 mg VERSED given in lab by Ibis Stone, MARGAUX in Right Antecubital via Peripheral IV. Orde red by Jair Maddox. 7:36:10 Contrast Scanned 7:36:11 Immediate Presedation assesment performed by physician. Time Out. Correct patient, correct procedure,correct physician, ,power injector not loaded with contrast with surgical 7:36:34 team present. Time Out Concurred by , individual staff in procedure 7:37:02 Case Start 7:37:03 3 mL 1% XYLOCAINE given in lab by Jair Maddox in Right Radial via Subcutaneous. 7:38:37 Access site was Right Radial Artery. A SHEATH, FR6 RADIAL PRELUDE EASE 11CM FR 6 was advanced into the Radial (right) using the Colinu jovanna 7:38:48 technique. 5 mL (Bolus) RADIAL COCKTAIL given in lab by Jair Maddox in Right Radial via Radial. Using [Mary Ellen ution Name]. Reason: 7:39:08 Ntg 200mcg Verapamil 2.5mg Heparin 2500U. A CATHETER, FR5 OPTITORQUE RADIAL TIG 4.0 FR 5 was advanced over a wire. OMNIPAQUE, 350 MG, 150M L 150ML 7:39:21 was used for injections. 7:39:31 HR=72 bpm, GYHH=726/77 mmhg, SpO2=98 %, Resp=16 B/min, Pain=0, Adair=10, Rodriguez=2 7:41:11 The Subclav. Art. (Rt.) was injected and visualized at various angles. OMNIPAQUE, 350 MG, 15 0ML 150ML used. 7:41:28 A WIRE, HYDROSTEER 150CM ANGLED GLIDE 150CM was inserted via Fem Art (right). 7:41:55 Catheter was removed 7:44:31 Aborting radial access. Proceeding with RFA access 7:44:47 20 mL 1% XYLOCAINE given in lab by Jair Maddox in Right Groin via Subcutaneous. 7:44:52 Access site was Right Femoral Artery. 7:44:55 A SHEATH, FR6.5 PRELUDE 11CM FR 6.5 was advanced into the Fem Art (right) using the Percutan eous technique. A JL 4.0 INFINITI CATHETER FR 6 was advanced over a wire. OMNIPAQUE, 350 MG, 150ML 150ML was use d for 7:44:59 injections. 7:45:05 HR=72 bpm, TZEP=143/65 mmhg, SpO2=95.0 %, Resp=15 B/min, Pain=0, Adair=10, Rodriguez=2 7:45:45 Catheter was removed A JL 4.5 INFINITI CATHETER FR 6 was advanced over a wire. OMNIPAQUE, 350 MG, 150ML 150ML was use d for 7:46:25 injections. 7:48:51 The LCA was injected and visualized at various angles. OMNIPAQUE, 350 MG, 150ML 150ML used. Recorded Pressure: Ao, HR=65, Condition=Condition 1 7:49:25 (Aorta) Ao 110/69/85 7:49:35 HR=69 bpm, XAOX=967/66 mmhg, SpO2=94.0 %, Resp=15 B/min, Pain=0, Adair=10, Rodriguez=2 After removing the current catheter a 3DRC INFINITI CATHETER FR 6 was advanced over a WIRE, EXCH VIKKI 260CM 7:50:44 3MMJ 260CM. 7:51:44 The RCA was injected and visualized at various angles. OMNIPAQUE, 350 MG, 150ML 150ML used. 7:52:07 Catheter was removed A HS SH GUIDE CATHETER FR 6 was advanced over a wire. OMNIPAQUE, 350 MG, 150ML 150ML was used fo r 7:52:45 injections. 7:54:00 5000 units HEPARIN given in lab by Sachin Luna RN in Right Antecubital via Peripheral IV. O rdered by Jair Maddox. 7:54:30 HR=67 bpm, FBVI=836/69 mmhg, SpO2=94 %, Resp=29 B/min 37.5 mL AGGRASTAT BOLUS given in lab by Sachin Luna RN in Right Antecubital via Peripheral IV. Ordered by Tan 7:55:01 Jair. A HS SH GUIDE CATHETER FR 6 was advanced over a wire. OMNIPAQUE, 350 MG, 150ML 150ML was used fo r 7:55:17 injections. 0.15 mcg/kg/min AGGRASTAT DRIP given in lab by Sachin Luna RN in Right Antecubital via Peripher al IV. Pump/Drip 7:57:02 Flow = 13.91 ml/hr using NaCl .9 with a concentration of 12.5 mg in 250 ml. Ordered by Eric Maddox. After removing the current catheter a ART 3.5 GUIDE CATHETER RUNWAY FR 6 was advanced over a WIR E, 7:57:09 EXCHANGE 260CM 3MMJ 260CM. Unable to cannulate RCA 7:59:33 HR=66 bpm, ZCRT=357/72 mmhg, SpO2=97 %, Resp=27 B/min 8:03:02 A WIRE, ASAHI PROWATER 180CM 180CM was inserted via Fem Art (right). 8:04:14 A BALLOON, 2.0 X 15MM EUPHORA 15MM was inserted over WIRE, ASAHI PROWATER 180CM 180CM via th e RCA Dist. 8:04:27 ACT (Normal Range 90-180) = 345 8:04:34 HR=67 bpm, YGQL=596/76 mmhg, SpO2=97.0 %, Resp=26 B/min A BALLOON, 2.0 X 15MM EUPHORA 15MM over a WIRE, ASAHI PROWATER 180CM 180CM in the RCA Dist was i nflated 8:04:39 using a 30 TRACY INDEFLATOR at 10 tracy for 20 sec. A BALLOON, 2.0 X 15MM EUPHORA 15MM over a WIRE, ASAHI PROWATER 180CM 180CM in the RCA Dist was i nflated 8:04:53 using a 30 TRACY INDEFLATOR at 13 tracy for 20 sec. 8:06:49 Balloon Removed. A BALLOON, 3.25 X 15MM NC EUPHORA 15MM was inserted over WIRE, ASAHI PROWATER 180CM 180CM via th e RCA 8:06:50 Dist. A BALLOON, 3.25 X 15MM NC EUPHORA 15MM over a WIRE, ASAHI PROWATER 180CM 180CM in the RCA Dist w as 8:07:35 inflated using a 30 TRACY INDEFLATOR at 8 tracy for 15 sec. 8:08:06 Activated Clotting Time Drawn A BALLOON, 3.25 X 15MM NC EUPHORA 15MM over a WIRE, ASAHI PROWATER 180CM 180CM in the RCA Dist w as 8:08:27 inflated using a 30 TRACY INDEFLATOR at 19 tracy for 30 sec. 8:09:33 HR=69 bpm, MXUT=763/79 mmhg, SpO2=97.0 %, Resp=26 B/min 8:09:35 Balloon Removed. A STENT, 3.0 15MM [place] 3.0 15MM was advanced through a ART 3.5 GUIDE CATHETER RUNWAY FR 6 over a WIRE, 8:12:27 ASAHI PROWATER 180CM 180CM. A STENT, 3.0 15MM [place] 3.0 15MM was deployed using a 30 TRACY INDEFLATOR at 12 atmospheres for 30 seconds in 8:13:09 the RCA Dist. 8:14:36 HR=73 bpm, TRKA=802/81 mmhg, SpO2=98.0 %, Resp=23 B/min 8:14:38 Delivery device removed A STENT, 3.5 15MM [place] 3.5 15MM was advanced through a ART 3.5 GUIDE CATHETER RUNWAY FR 6 over a WIRE, 8:16:07 ASAHI PROWATER 180CM 180CM. 8:17:33 Stent not deployed. Stent removed and intact. 8:18:53 100 mcg NTG (IC) given in lab by Jair Maddox via Intra-coronary. Ordered by Jair Maddox. 8:19:23 A WIRE, BALANCE MIDDLEWEIGHT 190CM 190CM was inserted via Fem Art (right). 8:19:37 HR=68 bpm, GQCE=107/74 mmhg, SpO2=97.0 %, Resp=23 B/min A STENT, 3.5 15MM [place] 3.5 15MM was advanced through a ART 3.5 GUIDE CATHETER RUNWAY FR 6 over a WIRE, 8:21:36 BALANCE MIDDLEWEIGHT 190CM 190CM. A STENT, 3.5 15MM [place] 3.5 15MM was deployed using a 30 TRACY INDEFLATOR at 13 atmospheres for 30 seconds in 8:21:38 the RCA Dist. 8:22:22 Prowater Wire removed 8:22:37 Re-inflated the stent balloon in the RCA Dist to 14 TRACY for 20 seconds. 8:24:23 Delivery device removed 8:24:36 HR=73 bpm, ZIEP=730/80 mmhg, Resp=26 B/min 8:26:05 Guide Catheter and wire was removed A PIGTAIL STR INFINITI CATHETER FR 6 was advanced over a wire. OMNIPAQUE, 350 MG, 150ML 150ML wa s used for 8:26:39 injections. Recorded Pressure: LV, HR=69, Condition=Condition 1 8:27:36 (Left Ventricle) LV 129/21/30 8:28:49 The LV was injected at 11 cc/sec for a total of 42. OMNIPAQUE, 300 MG, 50ML 50ML used. Recorded Pressure: LV, Ao, HR=70, Condition=Condition 1 8:29:25 (Left Ventricle) LV 138/19/28, (Aorta) Ao 132/74/96 8:29:38 HR=73 bpm, OJVE=165/65 mmhg, SpO2=96.0 %, Resp=34 B/min 8:30:24 Catheter was removed 8:30:29 Case End 8:32:47 Oozing noted at the right groin access site. 8:34:32 HR=70 bpm, SGKQ=680/78 mmhg, SpO2=99.0 %, Resp=33 B/min 8:36:09 180 mg BRILINTA given in lab by Sachin Luna RN via Oral. Radial Compression Device Used. 15 mLs of air placed in BAND, RADIAL COMPRESSION TR SHORT 24 24C M. Affected 8:38:42 hand 90 % O2 saturation. 8:39:36 HR=70 bpm, OYTU=571/73 mmhg, SpO2=97.0 %, Resp=33 B/min A SHEATH, FR7.5 PRELUDE 11CM FR 7.5 11CM was exchanged in the Fem Art (right). This was necessar y in order to 8:44:10 minimize site leakage. 8:45:16 HR=76 bpm, MYOL=243/77 mmhg, SpO2=97.0 %, Resp=33 B/min 8:50:20 In the Fem Art (right) the SHEATH, FR7.5 PRELUDE 11CM FR 7.5 11CM was sutured in place by Thao Butt RT(R). 8:57:31 Sterile dressing applied to site 8:57:33 No case complications noted. 8:57:34 Cine recording checked. Assessment: Final Case, HR=76 BPM, Rhythm=sr, QZGK=713/77 mmhg, Chest Pain=0 Right Pulses: Harley Ped=1, Femoral=1, Radial=2 8:57:36 Neurological: State=Alert, Ox3, STRONG Respiration: Resp=24 B/min, SpO2=91 % 8:59:07 Bedside Report will be given. 8:59:10 Implantable Device card placed in patient's chart. 9:00:40 Closure device placement in the Fem Art (right) [employer] 9:04:15 Patient moved to bed. 9:06:29 Patient transported to [facility] End Study - Contrast Media Used In Study Contrast Total Opened (mL) Total Used (mL) Total Wasted (mL) Omnipaque 210 210 0 End Study - Maximum Contrast Load Max Contrast Load (mL) 552.3 End Study - Radiation Exposure Fluoro Time (minutes) 14.6 End Study - Sheaths Sheaths Pulled By Sheath Hold Time (min) Tor Bennett End Study - Patient Disposition Complications Transferred To Interventional Outcome No Telemetry Bed successful
[2017-03-02] MEDS ORDERED: ATROPINE SULFATE 1 MG/10 ML SYRINGE ONE (11:10)
[2017-03-02] MEDS: ACETAMINOPHEN 500 MG CPLT PO PRN (12:10)
[2017-03-02] MEDS: guaiFENesin E.R. 600 MG TAB PO SCH ×2 (13:00→20:14)
[2017-03-02] MEDS: METOPROLOL TARTRATE 25 MG TAB PO SCH ×2 (13:00→20:15)
[2017-03-02] MEDS: RAMIPRIL 5 MG CAP PO SCH (13:01)
[2017-03-02] MEDS: FUROSEMIDE 40 MG TAB PO SCH (13:01)
--- NOTE | 2017-03-02 13:03 | HHI.PR ---
Subjective Remarks This is a 76-year-old female with CAD status post PCI and stent placement 1999 and balloon angioplasty 2005, Left bundle branch block, History of [place] in 1999, COPD, Dm II, Hypertension, Hyperlipidemia, who came to ER with SOB, lower extremity edema for two weeks, Chest pain, department, does not follow a network desktop support specialist, she continue smoking Tobacco 50 Pack years, her base was 2 packs daily and for the last two years came to half pack daily. 03/01: Seen in her bedroom, discussed with nurse Miss Yonug, stable asymptomatic. 03/02: Seen by network desktop support specialist Doctor Jair Maddox, recommended Cardiac Catheterization, today status post Cardiac Cath, with diagnosis of NSTEMI cath showed two high grade lesions in very large distal RCA, both stented with drug eluting stents recommended overnight observation, discharge in am tomorrow and continue Brilinta 90 mg BID and daily baby aspirin, follow with Doctor Maddox in 3 to 4 weeks. CHF with EF by cath 10-15%, Appears component of non ischemic Cardiomyopathy as well Increased Metoprolol to 50 mg BID and continue Ramipril. if in 3 months he EF < 35% consider ICD implant. seen in the presence of her relatives, in the presence of miss Grant, the patient developed Hypoglycemia. starting diet. Objective Vital Signs Date Time Temp Pulse Resp B/P (MAP) Pulse Ox O2 Delivery O2 Flow Rate FiO2 03/02/17 06:09 69 03/02/17 05:02 64 03/02/17 04:11 87 03/02/17 03:00 62 03/02/17 03:00 97.5 67 18 93/59 (70) 94 03/02/17 02:00 58 03/02/17 01:00 61 03/02/17 00:00 61 03/01/17 23:00 69 03/01/17 23:00 98.0 59 18 113/79 (90) 94 03/01/17 22:00 84 03/01/17 21:00 76 03/01/17 20:08 91 21 03/01/17 20:00 68 03/01/17 19:00 98.3 68 18 103/51 (68) 91 03/01/17 19:00 66 03/01/17 18:00 66 03/01/17 17:00 68 03/01/17 16:00 98.4 60 18 112/68 (83) 99 03/01/17 16:00 64 03/01/17 15:00 71 03/01/17 14:00 81 I/O 03/01/17 03/01/17 03/01/17 03/02/17 03/02/17 03/02/17 07:00 15:00 23:00 07:00 15:00 23:00 Intake Total 240 ml 723 ml 480 ml Balance 240 ml 723 ml 480 ml Intake Oral 240 ml 625 ml 480 ml IV Total 98 ml # Voids 2 4 3 # Bowel Movements 0 1 Result Diagram: 02/28/17 2310 02/28/[address] Angiography 02/28/17 1326 Signed Impressions: Service Date/Time: Tuesday, February 28, 2017 15:07 - CONCLUSION: 1. No PE is identified. 2. Small bilateral pleural effusions with a smooth septal thickening in the lower lobes. These findings suggest mild pulmonary edema. Given the enlarged cardiac silhouette, a cardiogenic cause should be considered. 3. Nonspecific 8mm right adrenal gland nodule. It does not meet criteria for an adenoma on this examination. Duc Bryant MD Chest X-Ray 02/28/17 1322 Signed Impressions: Service Date/Time: Tuesday, February 28, 2017 13:46 - CONCLUSION: 1. Compensated cardiomegaly. 2. Left basilar consolidation/effusion Bryon Mera MD Procedures None Other Results Laboratory Tests Test 02/28/17 13:07 02/28/17 23:10 03/01/17 04:45 03/02/17 04:25 Neutrophils (%) (Auto) 77.0 % Lymphocytes (%) (Auto) 16.2 % Monocytes (%) (Auto) 5.9 % Eosinophils (%) (Auto) 0.4 % Basophils (%) (Auto) 0.5 % Neutrophils # (Auto) 4.9 TH/MM3 Lymphocytes # (Auto) 1.0 TH/MM3 Monocytes # (Auto) 0.4 TH/MM3 Eosinophils # (Auto) 0.0 TH/MM3 Basophils # (Auto) 0.0 TH/MM3 CBC Comment DIFF FINAL Differential Comment Blood Urea Nitrogen 22 MG/DL Creatinine 0.75 MG/DL Random Glucose 128 MG/DL Total Protein 6.5 GM/DL Albumin 3.5 GM/DL Calcium Level 8.3 MG/DL Magnesium Level 2.0 MG/DL Alkaline Phosphatase 70 U/L Aspartate Amino Transf (AST/SGOT) 25 U/L Alanine Aminotransferase (ALT/SGPT) 37 U/L Total Bilirubin 0.7 MG/DL Sodium Level 146 MEQ/L Potassium Level 3.6 MEQ/L Chloride Level 108 MEQ/L Carbon Dioxide Level 31.0 MEQ/L Anion Gap 7 MEQ/L Estimat Glomerular Filtration Rate 75 ML/MIN B-Type Natriuretic Peptide 1405 PG/ML Lipase 168 U/L White Blood Count 5.3 TH/MM3 Red Blood Count 5.36 MIL/MM3 Hemoglobin 15.8 GM/DL Hematocrit 49.1 % Mean Corpuscular Volume 91.6 FL Mean Corpuscular Hemoglobin 29.5 PG Mean Corpuscular Hemoglobin Concent 32.2 % Red Cell Distribution Width 13.3 % Platelet Count 146 TH/MM3 Mean Platelet Volume 8.6 FL Prothrombin Time 11.5 SEC Prothromb Time International Ratio 1.0 RATIO Total Creatine Kinase 72 U/L Troponin I 0.49 NG/ML Triglycerides Level 97 MG/DL Cholesterol Level 141 MG/DL LDL Cholesterol 72 MG/DL HDL Cholesterol 49.3 MG/DL Cholesterol/HDL Ratio 2.86 RATIO Activated Partial Thromboplast Time 52.9 SEC Objective Remarks GENERAL: Well-developed patient, in no apparent distress. SKIN: No rashes, ecchymoses or lesions. Cool and dry. HEAD: Atraumatic. Normocephalic. No temporal or scalp tenderness. EYES: Pupils equal round and reactive. NECK: Trachea midline. No JVD or lymphadenopathy. Supple. CARDIOVASCULAR: Regular rate and rhythm without murmurs, gallops, or rubs. RESPIRATORY: Decreased breath sounds no wheezing or crackles. GASTROINTESTINAL: Abdomen soft, nondistended. Non tender. MUSCULOSKELETAL: Extremities without clubbing, cyanosis. Positive for lower extremity edema. NEUROLOGICAL: Awake and alert. No Focal deficit. Medications and IVs Current Medications Medications (Trade) Dose Ordered Sig/Celso Route Start Time Stop Time Status Last Admin (NS Flush) 2 ml UNSCH PRN IVF 02/28/17 13:30 (Altace) 10 mg DAILY PO 03/01/17 09:00 03/01/17 09:31 (Pravachol) 80 mg HS PO 02/28/17 21:00 03/01/17 22:10 (NS Flush) 2 ml BID IV FLUSH 02/28/17 21:00 03/01/17 22:10 (NS Flush) 2 ml UNSCH PRN IV FLUSH 02/28/17 18:15 (Nitrostat Sl) 0.4 mg Q5M PRN SL 02/28/17 18:15 (Tylenol) 500 mg Q4H PRN PO 02/28/17 18:15 03/02/17 12:10 (Morphine Inj) 2 mg Q5M PRN IV PUSH 02/28/17 18:15 (Pepcid) 20 mg BID PO 02/28/17 21:00 03/01/17 22:10 (D50w (Vial) Inj) 50 ml UNSCH PRN IV PUSH 02/28/17 18:15 (Glucagon Inj) 1 mg UNSCH PRN OTHER 02/28/17 18:15 (NovoLOG SUPPLEMENTAL SCALE) 1 ACHS SLIDING SCALE SQ 02/28/17 21:00 02/28/17 21:00 (Duoneb Neb) 1 ampule Q4HR NEB NEB 03/01/17 16:00 03/02/17 12:35 (Mucinex Er) 600 mg BID PO 03/01/17 21:00 03/01/17 22:10 Sodium Chloride 1,000 ml @ 100 mls/hr Q10H IV 03/01/17 17:23 03/06/17 17:22 03/02/17 03:23 (Aspirin) 325 mg RIGGING SLINGER PO 03/01/17 17:30 03/05/17 17:29 (Benadryl) 50 mg RIGGING SLINGER PO 03/01/17 17:30 03/05/17 17:29 03/02/17 05:54 (Valium) 10 mg RIGGING SLINGER PO 03/01/17 17:30 03/05/17 17:29 (Lopressor) 50 mg BID PO 03/02/17 09:00 Sodium Chloride 1,000 ml @ 100 mls/hr Q10H IV 03/02/17 08:46 03/02/17 20:45 (NS Flush) 2 ml UNSCH PRN IVF 03/02/17 09:00 (Restoril) 15 mg HS PRN PO 03/02/17 21:00 (Aspirin Chew) 81 mg DAILY PO 03/03/17 09:00 (Brilinta) 90 mg BID PO 03/03/17 09:00 Tirofiban/Sodium Chloride 250 ml @ 13.914 mls/ hr [id number] IV 03/02/17 08:46 03/03/17 02:45 (Lasix) 40 mg DAILY PO 03/02/17 10:00 A/P Assessment and Plan 76-year-old female with history of coronary disease status post stent placement and balloon angioplasty, history of [place], history of left bundle branch block, COPD, type 2 diabetes, hypertension, hyperlipidemia who presented with shortness of breathing, chest pain, lower extremity edema 1. Atypical chest pain, in a patient with CAD and history of [place], Left Bundle branch block, status post PCI and stent placement, Tobacco dependence, elevated troponin 0.71, Chest x-ray shows left pleural effusion or consolidation. CTA showed mild bilateral pleural effusion. received Aspirin, network desktop support specialist Doctor Jair Maddox, recommended Cardiac Catheterization, today status post Cardiac Cath, with diagnosis of NSTEMI cath showed two high grade lesions in very large distal RCA, both stented with drug eluting stents recommended overnight observation, discharge in am tomorrow and continue Brilinta 90 mg BID and daily baby aspirin, follow with Doctor Maddox in 3 to 4 weeks. CHF with EF by cath 10-15%, Appears component of non ischemic Cardiomyopathy as well Increased Metoprolol to 50 mg BID and continue Ramipril. if in 3 months he EF <35% consider ICD implant. 2. Tobacco dependence. strongly recommended to stop smoking. 3. CHF exacerbation the patient came with Dyspnea, CTA showed bilateral pleural effusion, BNP 1405, Lasix given strict Is and Os. continue Oxygen to keep saturation over 92% and diuretics continue. See #1 for recommendations. 4. Hypertension controlled. 5. Hyperlipidemia continue Home medicines. 6. COPD continue Bronchodilator, Mucolytic and incentive spirometry. 7. Fibromyalgia by history . 8. DM II continue sliding scale at this time patient with Hypoglycemia giving diet. DVT prophylaxis -On heparin drip. Discussed Condition With Patient and nurse Miss Grant, all questions answered to the best of my abilities. Discharge Planning Expected discharge by tomorrow. Barrett Doshi MD Mar 02, 2017 13:03
[2017-03-02] MEDS: FAMOTIDINE 20 MG TAB PO SCH ×2 (13:06→20:14)
[2017-03-02] MEDS: PRAVASTATIN SOD 80 MG TAB PO SCH (20:14)
[2017-03-02] MEDS ORDERED: TEMAZEPAM 15 MG CAP PO PRN (21:00)
[2017-03-03] VITALS (23 sets, daily range): BP systolic 85–107; BP diastolic 45–63; PULSE 64–104; RESP 18–24; TEMP 97.8–98.7; O2SAT 90–97
[2017-03-03] MEDS: RESP: ALBUTEROL 2.5 MG/IPRATROPIUM 0.5 MG NEB (SCH) NEB ×6 (00:41→20:58)
[2017-03-03 06:18] LABS: BICARBONATE 26.8 MEQ/L (21.0-32.0)
[2017-03-03 06:19] LABS: POTASSIUM 3.1 MEQ/L (3.5-5.1)
[2017-03-03] MEDS: INSULIN ASPART SUPPLEMENTAL SCALE SQ SCH ×5 (08:00→22:15)
[2017-03-03] MEDS: SODIUM CHLORIDE 0.9% FLUSH 10 ML FLUSH IV FLUSH SCH ×2 (08:40→21:42)
[2017-03-03] MEDS: ASPIRIN 81 MG CHEW TAB PO SCH (08:40)
[2017-03-03] MEDS: guaiFENesin E.R. 600 MG TAB PO SCH ×2 (08:41→21:42)
[2017-03-03] MEDS: TICAGRELOR 90 MG TAB PO SCH ×2 (08:41→21:42)
[2017-03-03] MEDS: FAMOTIDINE 20 MG TAB PO SCH ×2 (08:41→21:42)
[2017-03-03] MEDS: SODIUM CHLOR 0.9% 1000 ML INJ 1,000 ML IV SCH (08:43)
[2017-03-03] MEDS: METOPROLOL TARTRATE 25 MG TAB PO SCH (09:00)
[2017-03-03] MEDS: FUROSEMIDE 40 MG TAB PO SCH (09:00)
[2017-03-03] MEDS: RAMIPRIL 5 MG CAP PO SCH (09:00)
[2017-03-03 09:50] LABS: AUTOMATED NEUTROPHIL # 5.1 TH/MM3 (1.8-7.7); BASOPHIL % 0.4 % (0.0-2.0); EOSINOPHIL # 0.1 TH/MM3 (0-0.4); EOSINOPHIL % 1.3 % (0.0-4.0); HEMATOCRIT 38.1 % (35.0-46.0); HEMO FLAGS DIFF FINAL; LYMPHOCYTE # 1.2 TH/MM3 (1.0-4.8); MEAN CELL VOLUME 91.4 FL (80.0-100.0); MEAN CORPUSCULAR HEMOGLOBIN 30.2 PG (27.0-34.0); MONO % 7.8 % (0.0-8.0); NEUT % 73.5 % (16.0-70.0); PLATELET COUNT 142 TH/MM3 (150-450); RED BLOOD COUNT 4.17 MIL/MM3 (4.00-5.30); WHITE BLOOD COUNT 6.9 TH/MM3 (4.0-11.0)
[2017-03-03] MEDS: ACETAMINOPHEN 500 MG CPLT PO PRN (11:07)
[2017-03-03] MEDS: FUROSEMIDE 40 MG/4 ML VIAL IV PUSH SCH (11:15)
[2017-03-03] MEDS ORDERED: POTASSIUM CHLORIDE 10 MEQ CONTROLLED RELEASE TAB PO ONE (11:15)
--- NOTE | 2017-03-03 11:22 | PD.CARD.PN ---
Subjective Subjective Remarks Patient seen for Dr. Maddox No chest pain Positive SOB Dizziness with standing Has left back pain, with increased pain with palpation Objective Medications Current Medications Medications (Trade) Dose Ordered Sig/Celso Route Start Time Stop Time Status Last Admin (NS Flush) 2 ml UNSCH PRN IVF 02/28/17 13:30 (Altace) 10 mg DAILY PO 03/01/17 09:00 03/02/17 13:01 (Pravachol) 80 mg HS PO 02/28/17 21:00 03/02/17 20:14 (NS Flush) 2 ml BID IV FLUSH 02/28/17 21:00 03/03/17 08:40 (NS Flush) 2 ml UNSCH PRN IV FLUSH 02/28/17 18:15 (Nitrostat Sl) 0.4 mg Q5M PRN SL 02/28/17 18:15 (Tylenol) 500 mg Q4H PRN PO 02/28/17 18:15 03/02/17 12:10 (Morphine Inj) 2 mg Q5M PRN IV PUSH 02/28/17 18:15 (Pepcid) 20 mg BID PO 02/28/17 21:00 03/03/17 08:41 (D50w (Vial) Inj) 50 ml UNSCH PRN IV PUSH 02/28/17 18:15 (Glucagon Inj) 1 mg UNSCH PRN OTHER 02/28/17 18:15 (NovoLOG SUPPLEMENTAL SCALE) 1 ACHS SLIDING SCALE SQ 02/28/17 21:00 03/02/17 17:00 (Duoneb Neb) 1 ampule Q4HR NEB NEB 03/01/17 16:00 03/03/17 10:38 (Mucinex Er) 600 mg BID PO 03/01/17 21:00 03/03/17 08:41 Sodium Chloride 1,000 ml @ 100 mls/hr Q10H IV 03/01/17 17:23 03/06/17 17:22 03/03/17 08:43 (Aspirin) 325 mg UTILITY MECH[employer]IC SUPERVISOR PO 03/01/17 17:30 03/05/17 17:29 (Benadryl) 50 mg UTILITY MECHANIC SUPERVISOR PO 03/01/17 17:30 03/05/17 17:29 03/02/17 05:54 (Valium) 10 mg UTILITY MECHANIC SUPERVISOR PO 03/01/17 17:30 03/05/17 17:29 (Lopressor) 50 mg BID PO 03/02/17 09:00 03/02/17 20:15 (NS Flush) 2 ml UNSCH PRN IVF 03/02/17 09:00 (Restoril) 15 mg HS PRN PO 03/02/17 21:00 (Aspirin Chew) 81 mg DAILY PO 03/03/17 09:00 03/03/17 08:40 (Brilinta) 90 mg BID PO 03/03/17 09:00 03/03/17 08:41 (Lasix) 40 mg DAILY PO 03/02/17 10:00 03/02/17 13:01 Vital Signs / I&O Vital Signs Date Time Temp Pulse Resp B/P (MAP) Pulse Ox O2 Delivery O2 Flow Rate FiO2 03/03/17 10:40 Nasal Cannula 2.00 03/03/17 05:00 72 03/03/17 04:00 74 03/03/17 04:00 98.6 74 18 96/63 (74) 96 03/03/17 03:00 79 03/03/17 02:00 75 03/03/17 01:00 79 03/03/17 00:00 Room Air 03/03/17 00:00 84 03/03/17 00:00 98.2 84 18 100/58 (72) 97 03/02/17 23:00 79 03/02/17 22:00 86 03/02/17 21:00 75 03/02/17 20:00 98.0 76 20 101/60 (74) 98 03/02/17 20:00 Room Air 03/02/17 20:00 76 03/02/17 19:12 95 03/02/17 18:57 80 03/02/17 17:10 70 03/02/17 16:53 97 Nasal Cannula 2.50 03/02/17 16:31 63 03/02/17 15:34 97.4 64 18 101/66 (78) 99 03/02/17 15:00 64 03/02/17 14:16 74 03/02/17 13:00 80 03/02/17 12:00 74 03/02/17 11:27 98.0 72 18 131/77 (95) 96 I/O 9/22/17 9/2203/02/17 03/03/17 03/03/17 03/03/17 07:00 15:00 23:00 07:00 15:00 23:00 Intake Total 480 ml 720 ml 1480 ml Output Total 1050 ml 900 ml Balance 480 ml -330 ml 580 ml Intake Oral 480 ml 720 ml 480 ml IV Total 1000 ml Output Urine Total 1050 ml 900 ml # Voids 3 # Bowel Movements 1 0 0 Physical Exam GENERAL: NAD, AAOx3 SKIN: Warm and dry. HEAD: Atraumatic. Normocephalic. EYES: Pupils equal and round. No scleral icterus. No injection or drainage. ENT: No nasal bleeding or discharge. Mucous membranes pink and moist. NECK: Trachea midline. No JVD. CARDIOVASCULAR: Regular rate and rhythm. RESPIRATORY: No accessory muscle use. Decreased breath sounds bilaterally with mild rales GASTROINTESTINAL: Abdomen soft, non-tender, nondistended. Hepatic and splenic margins not palpable. MUSCULOSKELETAL: Extremities without clubbing, cyanosis, or edema. No obvious deformities. Left back pain increased with palpation. Right groin ecchymotic, no hematoma noted, soft, no pain with palpation. NEUROLOGICAL: Awake and alert. No obvious cranial nerve deficits. Motor grossly within normal limits. Five out of 5 muscle strength in the arms and legs. Normal speech. PSYCHIATRIC: Appropriate mood and affect; insight and judgment normal. Laboratory Laboratory Tests Test 03/03/17 04:35 03/03/17 09:28 Blood Urea Nitrogen 16 MG/DL Creatinine 0.66 MG/DL Random Glucose 102 MG/DL Calcium Level 7.5 MG/DL Sodium Level 145 MEQ/L Potassium Level 3.1 MEQ/L Chloride Level 106 MEQ/L Carbon Dioxide Level 26.8 MEQ/L Anion Gap 12 MEQ/L Estimat Glomerular Filtration Rate 87 ML/MIN Total Creatine Kinase 68 U/L White Blood Count 6.9 TH/MM3 Red Blood Count 4.17 MIL/MM3 Hemoglobin 12.6 GM/DL Hematocrit 38.1 % Mean Corpuscular Volume 91.4 FL Mean Corpuscular Hemoglobin 30.2 PG Mean Corpuscular Hemoglobin Concent 33.0 % Red Cell Distribution Width 13.0 % Platelet Count 142 TH/MM3 Mean Platelet Volume 9.3 FL Neutrophils (%) (Auto) 73.5 % Lymphocytes (%) (Auto) 17.0 % Monocytes (%) (Auto) 7.8 % Eosinophils (%) (Auto) 1.3 % Basophils (%) (Auto) 0.4 % Neutrophils # (Auto) 5.1 TH/MM3 Lymphocytes # (Auto) 1.2 TH/MM3 Monocytes # (Auto) 0.5 TH/MM3 Eosinophils # (Auto) 0.1 TH/MM3 Basophils # (Auto) 0.0 TH/MM3 CBC Comment DIFF FINAL Differential Comment Assessment and Plan Problem List: (1) Non-STEMI (non-ST elevated myocardial infarction) ICD Codes: I21.4 - Non-ST elevation (NSTEMI) myocardial infarction Status: Acute (2) CHF (congestive heart failure) ICD Codes: I50.9 - Heart failure, unspecified Status: Acute (3) CAD (coronary artery disease) ICD Codes: I25.10 - Atherosclerotic heart disease of [place] coronary artery without angina pectoris Assessment and Plan 1) NSTEMI/CAD s/p DESx2 to PDA (prox 3.5x15, distal 3.0x15) Con't ASA/Brilinta 2) Acute on chronic heart failure EF 20-25% Getting 100cc/hr, will stop and change Lasix to IV 3) Hypotension Possible due to acute heart failure vs. overall cardiomyopathy with NSTEMI Will hold [id number] for now Con't diuresis 4) Back pain, appears musculoskeletal Con't to follow Recheck Hgb, acute drop more likely procedural and dilutional 5) Right groin ecchymosis No hematoma felt, no bruit, con't to follow Problem Qualifiers (1) CHF (congestive heart failure): Qualified Codes: I50.9 - Heart failure, unspecified Alfredo Van DO Mar 03, 2017 11:22
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
[2017-03-03] MEDS ORDERED: methylPREDNISolone SOD SUCC 125 MG/2 ML VIAL IV PUSH ONE (13:30)
[2017-03-03] MEDS ORDERED: POTASSIUM CHLORIDE 20 MEQ CONTROLLED RELEASE TAB PO ONE (16:00)
[2017-03-03 16:53] LABS: MEAN CELL VOLUME 91.3 FL (80.0-100.0); MEAN CORPUSCULAR HEMOGLOBIN 30.2 PG (27.0-34.0); PLATELET COUNT 141 TH/MM3 (150-450); RED BLOOD COUNT 4.16 MIL/MM3 (4.00-5.30); RED CELL DISTRIBUTION WIDTH 13.1 % (11.6-17.2); WHITE BLOOD COUNT 8.6 TH/MM3 (4.0-11.0)
[2017-03-03 16:56] LABS: HEMO FLAGS AUTO DIFF
[2017-03-03 17:30] LABS: BANDS 4 % (0-6); EOSINOPHILS 1 % (0-4); NEUTROPHIL # MANUAL DIFF 7.8 TH/MM3 (1.8-7.7); POLYS (SEG NEUTROPHILS) 87 % (16-70); WBC DIFF SAMPLE 100
[2017-03-03 17:31] LABS: PLATELET ESTIMATE SMEAR LOW (NORMAL); PLATELET MORPHOLOGY NORMAL (NORMAL); SCAN/DIFF FINAL DIFF MANUAL
[2017-03-03] MEDS: PRAVASTATIN SOD 80 MG TAB PO SCH (21:42)
[2017-03-04] VITALS (25 sets, daily range): BP systolic 88–138; BP diastolic 46–77; PULSE 67–95; RESP 16–22; TEMP 97.4–98.9; O2SAT 94–99
[2017-03-04] MEDS: RESP: ALBUTEROL 2.5 MG/IPRATROPIUM 0.5 MG NEB (SCH) NEB ×6 (00:13→23:45)
[2017-03-04] MEDS: INSULIN ASPART SUPPLEMENTAL SCALE SQ SCH ×4 (08:00→21:00)
[2017-03-04 08:07] LABS: AUTOMATED NEUTROPHIL # 7.7 TH/MM3 (1.8-7.7); BASOPHIL % 0.3 % (0.0-2.0); EOSINOPHIL % 0.1 % (0.0-4.0); HEMATOCRIT 34.7 % (35.0-46.0); HEMO FLAGS DIFF FINAL; LYMPH % 7.7 % (9.0-44.0); LYMPHOCYTE # 0.7 TH/MM3 (1.0-4.8); MEAN CELL VOLUME 90.9 FL (80.0-100.0); MEAN CORPUSCULAR HEMOGLOBIN 30.4 PG (27.0-34.0); MEAN CORPUSCULAR HGB CONC 33.4 % (32.0-36.0); MONO % 7.3 % (0.0-8.0); NEUT % 84.6 % (16.0-70.0); PLATELET COUNT 121 TH/MM3 (150-450); RED BLOOD COUNT 3.82 MIL/MM3 (4.00-5.30); RED CELL DISTRIBUTION WIDTH 13.1 % (11.6-17.2); WHITE BLOOD COUNT 9.1 TH/MM3 (4.0-11.0)
[2017-03-04 09:00] LABS: BICARBONATE 32.9 MEQ/L (21.0-32.0); MAGNESIUM 2.1 MG/DL (1.5-2.5); POTASSIUM 3.9 MEQ/L (3.5-5.1)
[2017-03-04] MEDS: SODIUM CHLORIDE 0.9% FLUSH 10 ML FLUSH IV FLUSH SCH ×2 (09:00→21:00)
[2017-03-04] MEDS: ASPIRIN 81 MG CHEW TAB PO SCH (09:00)
[2017-03-04] MEDS: TICAGRELOR 90 MG TAB PO SCH (09:26)
[2017-03-04] MEDS: FAMOTIDINE 20 MG TAB PO SCH ×2 (09:26→21:00)
[2017-03-04] MEDS: FUROSEMIDE 40 MG/4 ML VIAL IV PUSH SCH (09:27)
[2017-03-04] MEDS: guaiFENesin E.R. 600 MG TAB PO SCH ×2 (09:27→21:00)
--- NOTE | 2017-03-04 10:31 | PD.CARD.PN ---
Subjective Subjective Remarks Yesterday afternoon really short of breath until getting Lasix then urinated ~1L Today breathing better, no chest pain Objective Medications Current Medications Medications (Trade) Dose Ordered Sig/Celso Route Start Time Stop Time Status Last Admin (Altace) 10 mg DAILY PO 03/01/17 09:00 Future Hold 03/02/17 13:01 (Pravachol) 80 mg HS PO 02/28/17 21:00 03/03/17 21:42 (NS Flush) 2 ml BID IV FLUSH 02/28/17 21:00 03/04/17 09:00 (Nitrostat Sl) 0.4 mg Q5M PRN SL 02/28/17 18:15 (Tylenol) 500 mg Q4H PRN PO 02/28/17 18:15 03/03/17 11:07 (Morphine Inj) 2 mg Q5M PRN IV PUSH 02/28/17 18:15 (Pepcid) 20 mg BID PO 02/28/17 21:00 03/04/17 09:26 (D50w (Vial) Inj) 50 ml UNSCH PRN IV PUSH 02/28/17 18:15 (Glucagon Inj) 1 mg UNSCH PRN OTHER 02/28/17 18:15 (NovoLOG SUPPLEMENTAL SCALE) 1 ACHS SLIDING SCALE SQ 02/28/17 21:00 03/03/17 22:15 (Duoneb Neb) 1 ampule Q4HR NEB NEB 03/01/17 16:00 03/04/17 08:53 (Mucinex Er) 600 mg BID PO 03/01/17 21:00 03/04/17 09:27 (Aspirin) 325 mg KNEE BOLTER PO 03/01/17 17:30 03/05/17 17:29 (Benadryl) 50 mg KNEE BOLTER PO 03/01/17 17:30 03/05/17 17:29 03/02/17 05:54 (Valium) 10 mg KNEE BOLTER PO 03/01/17 17:30 03/05/17 17:29 (Lopressor) 50 mg BID PO 03/02/17 09:00 Future Hold 03/02/17 20:15 (NS Flush) 2 ml UNSCH PRN IVF 03/02/17 09:00 (Restoril) 15 mg HS PRN PO 03/02/17 21:00 (Aspirin Chew) 81 mg DAILY PO 03/03/17 09:00 03/04/17 09:00 (Brilinta) 90 mg BID PO 03/03/17 09:00 03/04/17 09:26 (Lasix Inj) 40 mg DAILY IV PUSH 03/03/17 11:15 03/04/17 09:27 Vital Signs / I&O Vital Signs Date Time Temp Pulse Resp B/P (MAP) Pulse Ox O2 Delivery O2 Flow Rate FiO2 03/04/17 08:56 94 Nasal Cannula 2.00 03/04/17 06:00 79 03/04/17 05:00 74 03/04/17 04:00 98.1 73 22 90/52 (65) 95 03/04/17 04:00 73 03/04/17 04:00 Nasal Cannula 4.00 03/04/17 03:00 77 03/04/17 02:00 75 03/04/17 01:00 79 03/04/17 00:00 73 03/04/17 00:00 Nasal Cannula 03/04/17 00:00 98.4 73 22 91/47 (62) 96 03/03/17 23:00 88 03/03/17 22:00 75 03/03/17 21:00 79 03/03/17 20:58 95 Nasal Cannula 4.00 03/03/17 20:00 Nasal Cannula 4.00 03/03/17 20:00 98.1 83 22 107/45 (65) 94 03/03/17 20:00 83 03/03/17 20:00 Nasal Cannula 03/03/17 18:00 92 03/03/17 17:00 86 03/03/17 16:43 97 Nasal Cannula 6.00 03/03/17 16:00 86 03/03/17 15:00 88 03/03/17 15:00 98.7 88 23 94/49 (64) 97 03/03/17 14:00 96 03/03/17 12:00 98 03/03/17 11:00 97.8 81 24 90/51 (64) 97 03/03/17 11:00 74 03/03/17 10:40 Nasal Cannula 2.00 I/O 03/03/17 03/03/17 03/03/17 03/04/17 03/04/17 03/04/17 07:00 15:00 23:00 07:00 15:00 23:00 Intake Total 1480 ml 480 ml 240 ml Output Total 900 ml 1000 ml 1400 ml Balance 580 ml -520 ml -1160 ml Intake Oral 480 ml 480 ml 240 ml IV Total 1000 ml Output Urine Total 900 ml 1000 ml 1400 ml # Bowel Movements 0 0 Physical Exam GENERAL: NAD, AAOx3 SKIN: Warm and dry. HEAD: Atraumatic. Normocephalic. EYES: Pupils equal and round. No scleral icterus. No injection or drainage. ENT: No nasal bleeding or discharge. Mucous membranes pink and moist. NECK: Trachea midline. No JVD. CARDIOVASCULAR: Regular rate and rhythm. RESPIRATORY: No accessory muscle use. Decreased breath sounds bilaterally with mild rales GASTROINTESTINAL: Abdomen soft, non-tender, nondistended. Hepatic and splenic margins not palpable. MUSCULOSKELETAL: Extremities without clubbing, cyanosis, or edema. No obvious deformities. Left back pain increased with palpation. Right groin ecchymotic, no hematoma noted, soft, pain now noted with palpation. NEUROLOGICAL: Awake and alert. No obvious cranial nerve deficits. Motor grossly within normal limits. Five out of 5 muscle strength in the arms and legs. Normal speech. PSYCHIATRIC: Appropriate mood and affect; insight and judgment normal. Laboratory Laboratory Tests Test 03/03/17 16:24 03/04/17 07:12 White Blood Count 8.6 TH/MM3 9.1 TH/MM3 Red Blood Count 4.16 MIL/MM3 3.82 MIL/MM3 Hemoglobin 12.6 GM/DL 11.6 GM/DL Hematocrit 38.0 % 34.7 % Mean Corpuscular Volume 91.3 FL 90.9 FL Mean Corpuscular Hemoglobin 30.2 PG 30.4 PG Mean Corpuscular Hemoglobin Concent 33.0 % 33.4 % Red Cell Distribution Width 13.1 % 13.1 % Platelet Count 141 TH/MM3 121 TH/MM3 Mean Platelet Volume 8.8 FL 9.4 FL CBC Comment AUTO DIFF DIFF FINAL Differential Total Cells Counted 100 Neutrophils % (Manual) 87 % Band Neutrophils % 4 % Lymphocytes % 5 % Monocytes % 3 % Eosinophils % 1 % Neutrophils # (Manual) 7.8 TH/MM3 Differential Comment FINAL DIFF MANUAL Platelet Estimate LOW Platelet Morphology Comment NORMAL Red Cell Morphology Comment NORMAL Neutrophils (%) (Auto) 84.6 % Lymphocytes (%) (Auto) 7.7 % Monocytes (%) (Auto) 7.3 % Eosinophils (%) (Auto) 0.1 % Basophils (%) (Auto) 0.3 % Neutrophils # (Auto) 7.7 TH/MM3 Lymphocytes # (Auto) 0.7 TH/MM3 Monocytes # (Auto) 0.7 TH/MM3 Eosinophils # (Auto) 0.0 TH/MM3 Basophils # (Auto) 0.0 TH/MM3 Blood Urea Nitrogen 16 MG/DL Creatinine 0.67 MG/DL Random Glucose 140 MG/DL Calcium Level 8.6 MG/DL Phosphorus Level 2.6 MG/DL Magnesium Level 2.1 MG/DL Sodium Level 141 MEQ/L Potassium Level 3.9 MEQ/L Chloride Level 102 MEQ/L Carbon Dioxide Level 32.9 MEQ/L Anion Gap 6 MEQ/L Estimat Glomerular Filtration Rate 86 ML/MIN Assessment and Plan Problem List: (1) Non-STEMI (non-ST elevated myocardial infarction) ICD Codes: I21.4 - Non-ST elevation (NSTEMI) myocardial infarction Status: Acute (2) CHF (congestive heart failure) ICD Codes: I50.9 - Heart failure, unspecified Status: Acute (3) CAD (coronary artery disease) ICD Codes: I25.10 - Atherosclerotic heart disease of [place] coronary artery without angina pectoris Assessment and Plan 1) NSTEMI/CAD s/p DESx2 to PDA (prox 3.5x15, distal 3.0x15) Con't ASA/Brilinta 2) Acute on chronic heart failure EF 20-25% Con't Lasix IV 3) Hypotension Possible due to acute heart failure vs. overall cardiomyopathy with NSTEMI Will hold BB/SERGIO-I for now, diurese with Lasix... once closer to dry weight then restart BB/SERGIO-I 4) Right groin ecchymosis No hematoma felt, no bruit Pain with palpation now, plan ultrasound right groin 5) Dr. Maddox will return tomorrow to follow Problem Qualifiers (1) CHF (congestive heart failure): Qualified Codes: I50.9 - Heart failure, unspecified Alfredo Van DO Mar 04, 2017 10:31
--- NOTE | 2017-03-04 12:41 | HHI.PR ---
Subjective Remarks This is a 76-year-old female with CAD status post PCI and stent placement 1999 and balloon angioplasty 2005, Left bundle branch block, History of MN in 1999, COPD, Dm II, Hypertension, Hyperlipidemia, who came to ER with SOB, lower extremity edema for two weeks, Chest pain, department, does not follow a center specialists, she continue smoking Tobacco 50 Pack years, her base was 2 packs daily and for the last two years came to half pack daily. 03/01: Seen in her bedroom, discussed with nurse Miss Young, stable asymptomatic. 03/02: Seen by center specialists Doctor Jair Maddox, recommended Cardiac Catheterization, today status post Cardiac Cath, with diagnosis of NSTEMI cath showed two high grade lesions in very large distal RCA, both stented with drug eluting stents recommended overnight observation, discharge in am tomorrow and continue Brilinta 90 mg BID and daily baby aspirin, follow with Doctor Maddox in 3 to 4 weeks. CHF with EF by cath 10-15%, Appears component of non ischemic Cardiomyopathy as well Increased Metoprolol to 50 mg BID and continue Ramipril. if in 3 months he EF < 35% consider ICD implant. seen in the presence of her relatives, in the presence of miss Grant, the patient developed Hypoglycemia. starting diet. 03/03: Patient seen in her bedroom and discussed with nurse Miss Mcneil, respiratory rate has increased, was recommended Lasix 40 mg IV by center specialists not yet given asked the nurse to give it right now and also added Solu-Medrol the patient has important COPD but no wheezing at this time. 03/04: Seen in her bedroom in the presence of nurse Miss Mcneil, NSTEMI status post ADALI x 2 to PDA to continue Brilinta and Aspirin, as per Doctor Rehan will follow tomorrow with Doctor Maddox, today no complaint improving condition, no nausea, vomit or diarrhea. Objective Vital Signs Date Time Temp Pulse Resp B/P (MAP) Pulse Ox O2 Delivery O2 Flow Rate FiO2 03/04/17 12:00 90 03/04/17 11:00 98.9 84 18 110/63 (79) 95 03/04/17 11:00 88 03/04/17 10:00 92 03/04/17 09:00 78 03/04/17 08:56 94 Nasal Cannula 2.00 03/04/17 08:00 74 03/04/17 07:00 76 03/04/17 07:00 Nasal Cannula 2.00 03/04/17 07:00 97.8 67 17 106/77 (87) 97 03/04/17 06:00 79 03/04/17 05:00 74 03/04/17 04:00 98.1 73 22 90/52 (65) 95 03/04/17 04:00 73 03/04/17 04:00 Nasal Cannula 4.00 03/04/17 03:00 77 03/04/17 02:00 75 03/04/17 01:00 79 03/04/17 00:00 73 03/04/17 00:00 Nasal Cannula 03/04/17 00:00 98.4 73 22 91/47 (62) 96 03/03/17 23:00 88 03/03/17 22:00 75 03/03/17 21:00 79 03/03/17 20:58 95 Nasal Cannula 4.00 03/03/17 20:00 Nasal Cannula 4.00 03/03/17 20:00 98.1 83 22 107/45 (65) 94 03/03/17 20:00 83 03/03/17 20:00 Nasal Cannula 03/03/17 18:00 92 03/03/17 17:00 86 03/03/17 16:43 97 Nasal Cannula 6.00 03/03/17 16:00 86 03/03/17 15:00 88 03/03/17 15:00 98.7 88 23 94/49 (64) 97 03/03/17 14:00 96 I/O 03/03/17 03/03/17 03/03/17 03/04/17 03/04/17 03/04/17 07:00 15:00 23:00 07:00 15:00 23:00 Intake Total 1480 ml 480 ml 240 ml Output Total 900 ml 1000 ml 1400 ml Balance 580 ml -520 ml -1160 ml Intake Oral 480 ml 480 ml 240 ml IV Total 1000 ml Output Urine Total 900 ml 1000 ml 1400 ml # Bowel Movements 0 0 Result Diagram: 03/04/17 0712 03/04/[address] Angiography 02/28/17 1326 Signed Impressions: Service Date/Time: Tuesday, February 28, 2017 15:07 - CONCLUSION: 1. No PE is identified. 2. Small bilateral pleural effusions with a smooth septal thickening in the lower lobes. These findings suggest mild pulmonary edema. Given the enlarged cardiac silhouette, a cardiogenic cause should be considered. 3. Nonspecific 8mm right adrenal gland nodule. It does not meet criteria for an adenoma on this examination. Duc Bryant MD Chest X-Ray 02/28/17 1322 Signed Impressions: Service Date/Time: Tuesday, February 28, 2017 13:46 - CONCLUSION: 1. Compensated cardiomegaly. 2. Left basilar consolidation/effusion Bryon Mera MD Procedures None Other Results Laboratory Tests Test 02/28/17 13:07 02/28/17 23:10 03/01/17 04:45 03/02/17 04:25 Blood Urea Nitrogen 22 MG/DL Creatinine 0.75 MG/DL Random Glucose 128 MG/DL Total Protein 6.5 GM/DL Albumin 3.5 GM/DL Calcium Level 8.3 MG/DL Magnesium Level 2.0 MG/DL Alkaline Phosphatase 70 U/L Aspartate Amino Transf (AST/SGOT) 25 U/L Alanine Aminotransferase (ALT/SGPT) 37 U/L Total Bilirubin 0.7 MG/DL Sodium Level 146 MEQ/L Potassium Level 3.6 MEQ/L Chloride Level 108 MEQ/L Carbon Dioxide Level 31.0 MEQ/L B-Type Natriuretic Peptide 1405 PG/ML Lipase 168 U/L Prothrombin Time 11.5 SEC Prothromb Time International Ratio 1.0 RATIO Troponin I 0.49 NG/ML Triglycerides Level 97 MG/DL Cholesterol Level 141 MG/DL LDL Cholesterol 72 MG/DL HDL Cholesterol 49.3 MG/DL Cholesterol/HDL Ratio 2.86 RATIO Activated Partial Thromboplast Time 52.9 SEC Test 03/03/17 04:35 03/03/17 16:24 03/04/17 07:12 Total Creatine Kinase 68 U/L Differential Total Cells Counted 100 Neutrophils % (Manual) 87 % Band Neutrophils % 4 % Lymphocytes % 5 % Monocytes % 3 % Eosinophils % 1 % Neutrophils # (Manual) 7.8 TH/MM3 Platelet Estimate LOW Platelet Morphology Comment NORMAL Red Cell Morphology Comment NORMAL White Blood Count 9.1 TH/MM3 Red Blood Count 3.82 MIL/MM3 Hemoglobin 11.6 GM/DL Hematocrit 34.7 % Mean Corpuscular Volume 90.9 FL Mean Corpuscular Hemoglobin 30.4 PG Mean Corpuscular Hemoglobin Concent 33.4 % Red Cell Distribution Width 13.1 % Platelet Count 121 TH/MM3 Mean Platelet Volume 9.4 FL Neutrophils (%) (Auto) 84.6 % Lymphocytes (%) (Auto) 7.7 % Monocytes (%) (Auto) 7.3 % Eosinophils (%) (Auto) 0.1 % Basophils (%) (Auto) 0.3 % Neutrophils # (Auto) 7.7 TH/MM3 Lymphocytes # (Auto) 0.7 TH/MM3 Monocytes # (Auto) 0.7 TH/MM3 Eosinophils # (Auto) 0.0 TH/MM3 Basophils # (Auto) 0.0 TH/MM3 CBC Comment DIFF FINAL Differential Comment Blood Urea Nitrogen 16 MG/DL Creatinine 0.67 MG/DL Random Glucose 140 MG/DL Calcium Level 8.6 MG/DL Phosphorus Level 2.6 MG/DL Magnesium Level 2.1 MG/DL Sodium Level 141 MEQ/L Potassium Level 3.9 MEQ/L Chloride Level 102 MEQ/L Carbon Dioxide Level 32.9 MEQ/L Anion Gap 6 MEQ/L Estimat Glomerular Filtration Rate 86 ML/MIN Objective Remarks GENERAL: Well-developed patient, moderate respiratory distress. SKIN: No rashes, ecchymoses or lesions. Cool and dry. HEAD: Atraumatic. Normocephalic. No temporal or scalp tenderness. EYES: Pupils equal round and reactive. NECK: Trachea midline. No JVD or lymphadenopathy. Supple. CARDIOVASCULAR: Regular rate and rhythm without murmurs, gallops, or rubs. RESPIRATORY: Decreased breath sounds no wheezing or crackles. GASTROINTESTINAL: Abdomen soft, nondistended. Non tender. MUSCULOSKELETAL: Extremities without clubbing, cyanosis. No edema. NEUROLOGICAL: Awake and alert. No Focal deficit. Medications and IVs Current Medications Medications (Trade) Dose Ordered Sig/Celso Route Start Time Stop Time Status Last Admin (Altace) 10 mg DAILY PO 03/01/17 09:00 Future Hold 03/02/17 13:01 (Pravachol) 80 mg HS PO 02/28/17 21:00 03/03/17 21:42 (NS Flush) 2 ml BID IV FLUSH 02/28/17 21:00 03/04/17 09:00 (Nitrostat Sl) 0.4 mg Q5M PRN SL 02/28/17 18:15 (Tylenol) 500 mg Q4H PRN PO 02/28/17 18:15 03/03/17 11:07 (Morphine Inj) 2 mg Q5M PRN IV PUSH 02/28/17 18:15 (Pepcid) 20 mg BID PO 02/28/17 21:00 03/04/17 09:26 (D50w (Vial) Inj) 50 ml UNSCH PRN IV PUSH 02/28/17 18:15 (Glucagon Inj) 1 mg UNSCH PRN OTHER 02/28/17 18:15 (NovoLOG SUPPLEMENTAL SCALE) 1 ACHS SLIDING SCALE SQ 02/28/17 21:00 03/03/17 22:15 (Duoneb Neb) 1 ampule Q4HR NEB NEB 03/01/17 16:00 03/04/17 11:04 (Mucinex Er) 600 mg BID PO 03/01/17 21:00 03/04/17 09:27 (Aspirin) 325 mg LICENSED AUDIOLOGIST PO 03/01/17 17:30 03/05/17 17:29 (Benadryl) 50 mg LICENSED AUDIOLOGIST PO 03/01/17 17:30 03/05/17 17:29 03/02/17 05:54 (Valium) 10 mg LICENSED AUDIOLOGIST PO 03/01/17 17:30 03/05/17 17:29 (Lopressor) 50 mg BID PO 03/02/17 09:00 Future Hold 03/02/17 20:15 (NS Flush) 2 ml UNSCH PRN IVF 03/02/17 09:00 (Restoril) 15 mg HS PRN PO 03/02/17 21:00 (Aspirin Chew) 81 mg DAILY PO 03/03/17 09:00 03/04/17 09:00 (Brilinta) 90 mg BID PO 03/03/17 09:00 03/04/17 09:26 (Lasix Inj) 40 mg DAILY IV PUSH 03/03/17 11:15 03/04/17 09:27 A/P Assessment and Plan 76-year-old female with history of coronary disease status post stent placement and balloon angioplasty, history of MN, history of left bundle branch block, COPD, type 2 diabetes, hypertension, hyperlipidemia who presented with shortness of breathing, chest pain, lower extremity edema 1. Atypical chest pain, in a patient with CAD and history of MN, Left Bundle branch block, status post PCI and stent placement, Tobacco dependence, elevated troponin 0.71, Chest x-ray shows left pleural effusion or consolidation. CTA showed mild bilateral pleural effusion. received Aspirin, center specialists Doctor Jair Maddox, recommended Cardiac Catheterization, today status post Cardiac Cath, with diagnosis of NSTEMI cath showed two high grade lesions in very large distal RCA, both stented with drug eluting stents recommended overnight observation, discharge in am tomorrow and continue Brilinta 90 mg BID and daily baby aspirin, follow with Doctor Maddox in 3 to 4 weeks. CHF with EF by cath 10-15%, Appears component of non ischemic Cardiomyopathy as well Increased Metoprolol to 50 mg BID and continue Ramipril. if in 3 months he EF <35% consider ICD implant. Improved volume overload, due to hypotension was held Metoprolol. 2. Acute on chronic Heart Failure EF 20-25%, continue Lasix by center specialists. 3. Hypertension at this time Hypotensive, as per center specialists probable Heart failure versus Overall Cardiomyopathy with NSTEMI on hold BB and SERGIO inhibitors and continue diuresis. 4. Right groin ecchymosis No Hematoma, no bruit. 5. Tobacco dependence strongly recommended to stop smoking 6. COPD continue Bronchodilator, Mucolytic and incentive spirometry. Solu- Medrol 125 mg one dose 7. Fibromyalgia by history . 8. DM II continue sliding scale 9. Hyperlipidemia continue Home medicines. 10. Hypokalemia giving replacement and following. DVT prophylaxis -On heparin drip. Discussed Condition With Patient and nurse Miss Mcneil, all questions answered to the best of my abilities. Discharge Planning Not yet cleared for discharge. Barrett Doshi MD Mar 04, 2017 12:41
[2017-03-04] MEDS ORDERED: SODIUM CHLOR 0.9% 250 ML INJ 500 ML IV ONE (14:39)
[2017-03-04] MEDS ORDERED: SODIUM CHLORID 0.9% 500 ML INJ 500 ML IV ONE (14:39)
[2017-03-04] MEDS ORDERED: NORMOSOL R INJ 2,000 ML IV ONE (14:39)
--- NOTE | 2017-03-04 17:17 | RADRPT ---
EXAM DATE/TIME: 03/04/2017 16:15 [facility] COMPARISON: No previous studies available for comparison. INDICATIONS : Pain and swelling in the right thigh. 2 days status post cardiac catheterization.. MEDICAL HISTORY : Hypercholesterolemia. Hypertension. Hernia, hiatal. Asthma. COPD. Migraine. Arthritis. Carcinoma, lime rine. Diabetes. SURGICAL HISTORY : Cholecystectomy. Appendectomy. Hysterectomy. ENCOUNTER: Initial ACUITY: 2 days PAIN SCORE: 6/10 LOCATION: Right groin. AREA EVALUATED: Right groin. FINDINGS: A targeted right groin ultrasound study was performed and demonstrated a pseudoaneurysm measuring up to 6.3 x 3.2 x 2.1 cm. The neck measures approximately 1.4 x 0.7 x 1 cm. The neck is patent and the h ighest velocity measured 478 cm/s. Ortions of the pseudoaneurysm are clotted. CONCLUSION: Right groin pseudoaneurysm. Prasanna Llanes MD on March 04, 2017 at 17:13 Board Certified Radiologist. This report was verified electronically.
[2017-03-04] MEDS ORDERED: IOHEXOL 350 MG/ML 10 ML VIAL (for RAD DIAG) IVCONTRAST ONE (18:44)
[2017-03-04] MEDS ORDERED: ETOMIDATE 20 MG/10 ML VIAL ONE (19:21)
[2017-03-04] MEDS ORDERED: HEPARIN SODIUM - IV 10,000 UNITS/10 ML VIAL ONE ×2 (19:39→19:49)
[2017-03-04] MEDS ORDERED: HEPARIN-NS/PF INJ 1,000 ML ONE (19:49)
[2017-03-04] MEDS ORDERED: PROTAMINE SULFATE 50 MG/5 ML VIAL ONE (19:49)
[2017-03-04] MEDS ORDERED: THROMBIN (TOPICAL) 20,000 UNIT SPRAY KIT ONE (19:49)
[2017-03-04] MEDS ORDERED: VANCOMYCIN HCL 1000 MG VIAL ONE (19:49)
[2017-03-04] MEDS ORDERED: BUPIVACAINE HCL PF 0.5% 30 ML VIAL ONE (19:49)
[2017-03-04] MEDS ORDERED: VASOPRESSIN 20 UNITS/ML VIAL (IVTITR) ONE (19:53)
--- NOTE | 2017-03-04 20:18 | PD.VS.CON ---
History of Present Illness Chief Complaint: right groin pain that has worsened over the past 24 hours. Consult Requested by: Dr. Van History of Present Illness 76 year old female who had cardiac catheterization and coronary stent placement on 03.02.2017. Worsening right groin pain over the past 24 hours. Past/Family/Social History Home Medications Reported Medications Simvastatin (Simvastatin) 40 Mg Tab, 40 MG PO HS for Cholesterol Management, # 30 TAB 0 Refills 02/28/17 Ramipril (Ramipril) 10 Mg Cap, 10 MG PO DAILY, #30 CAP 0 Refills 02/28/17 Metformin (Metformin) 500 Mg Tab, 500 MG PO BIDPC for Blood Sugar Management, # 60 TAB 0 Refills With meals 02/28/17 Coded Allergies: penicillin G (Unverified Allergy, Severe, Drowsiness, 01/24/17) Physical Exam Vitals/I&O Date Time Temp Pulse Resp B/P (MAP) Pulse Ox O2 Delivery O2 Flow Rate FiO2 03/04/17 18:00 85 03/04/17 17:00 92 03/04/17 16:00 88 03/04/17 15:00 98.7 82 16 138/70 (92) 98 03/04/17 15:00 90 03/04/17 14:00 90 03/04/17 14:00 78 03/04/17 13:00 92 03/04/17 12:00 90 03/04/17 11:00 98.9 84 18 110/63 (79) 95 03/04/17 11:00 88 03/04/17 10:00 92 03/04/17 09:00 78 03/04/17 08:56 94 Nasal Cannula 2.00 03/04/17 08:00 74 03/04/17 07:00 76 03/04/17 07:00 Nasal Cannula 2.00 03/04/17 07:00 97.8 67 17 106/77 (87) 97 03/04/17 06:00 79 03/04/17 05:00 74 03/04/17 04:00 98.1 73 22 90/52 (65) 95 03/04/17 04:00 73 03/04/17 04:00 Nasal Cannula 4.00 03/04/17 03:00 77 03/04/17 02:00 75 03/04/17 01:00 79 03/04/17 00:00 73 03/04/17 00:00 Nasal Cannula 03/04/17 00:00 98.4 73 22 91/47 (62) 96 03/03/17 23:00 88 03/03/17 22:00 75 03/03/17 21:00 79 03/03/17 20:58 95 Nasal Cannula 4.00 03/04/17 03/04/17 03/04/17 07:00 15:00 23:00 Intake Total 240 ml 720 ml Output Total 1400 ml 1700 ml Balance -1160 ml -980 ml Neuro: CN2-12 intact Neck: supple Heart: Regular Lungs: Nasal cannula in place. Abdomen: soft and protuberant. Vascular: Extremities warm. Extremities: right groin with pulsatile hard mass (size of baseball). RIght anterior thigh with extending towards knee with extensive ecchymosis. Laboratory Tests Test 03/04/17 07:12 White Blood Count 9.1 Red Blood Count 3.82 Hemoglobin 11.6 Hematocrit 34.7 Mean Corpuscular Volume 90.9 Mean Corpuscular Hemoglobin 30.4 Mean Corpuscular Hemoglobin Concent 33.4 Red Cell Distribution Width 13.1 Platelet Count 121 Mean Platelet Volume 9.4 Neutrophils (%) (Auto) 84.6 Lymphocytes (%) (Auto) 7.7 Monocytes (%) (Auto) 7.3 Eosinophils (%) (Auto) 0.1 Basophils (%) (Auto) 0.3 Neutrophils # (Auto) 7.7 Lymphocytes # (Auto) 0.7 Monocytes # (Auto) 0.7 Eosinophils # (Auto) 0.0 Basophils # (Auto) 0.0 CBC Comment DIFF FINAL Differential Comment Blood Urea Nitrogen 16 Creatinine 0.67 Random Glucose 140 Calcium Level 8.6 Phosphorus Level 2.6 Magnesium Level 2.1 Sodium Level 141 Potassium Level 3.9 Chloride Level 102 Carbon Dioxide Level 32.9 Anion Gap 6 Estimat Glomerular Filtration Rate 86 Last 48 hours Impressions Lower Extremity Ultrasound 03/04/17 0000 Signed Impressions: Service Date/Time: Saturday, March 04, 2017 16:15 - CONCLUSION: Right groin pseudoaneurysm. Prasanna Llanes MD Assessment and Plan Assessment: (1) Pseudoaneurysm of right femoral artery Plan 76 y.o.f. with hx of cardiac catheterization with resultant right groin pseudoaneurysm. Specifically, right SFA (approximately 0u5x5mw) by CTA. Neck about 8mm to to 1 cm in diameter. Plan for open surgical repair of right groin pseudoaneurysm as patient is symptomatic. She understands risks and benefits of the procedure. Right leg marked and consent signed. Samir Medina DO Mar 04, 2017 20:18
--- NOTE | 2017-03-04 20:24 | RADRPT ---
EXAM DATE/TIME: 03/04/2017 18:37 [facility] COMPARISON: US LEG RIGHT HEMATOMA/PSEUDOANEURYSM, March 04, 2017, 16:15. INDICATIONS : Right peripheral vascular disease. Newly diagnosed right groin pseudoaneurysm. The patient has p ain and swelling in the right groin. IV CONTRAST: 100 cc Omnipaque 350 (iohexol) IV RADIATION DOSE: 3.46 CTDIvol (mGy) MEDICAL HISTORY : Cardiovascular disease. Hypertension. Diabetes mellitus type 2. SURGICAL HISTORY : Appendectomy. Cholecystectomy.Hysterectomy. ENCOUNTER: Initial ACUITY: 1 day PAIN SCALE: 5/10 LOCATION: Right lower extremity TECHNIQUE: Volumetric scanning was performed using a multi-row detector CT scanner. The data was post processed with a variety of visualization algorithms including full volume maximum intensity projection, multi -planar sliding thin slab reformation, curved planar reformation, and surface rendering techniques. Using automated exposure control and adjustment of the mA and/or kV according to patient size, radiat ion dose was kept as low as reasonably achievable to obtain optimal diagnostic quality images. DICO M format image data is available electronically for review and comparison. FINDINGS: ABDOMINAL AORTA: Diffuse atherosclerotic change is noted with multiple small ulcerative plaques. There is no focal ane urysm or dissection. There is mild tortuosity.. The proximal celiac and superior mesenteric arteries are patent and normal in diameter. There are solitary left renal artery. There are 2 right renal ar teries. These are patent. BIFURCATION: Atherosclerotic changes noted. RIGHT PELVIS: The right common iliac, internal iliac, and external iliac vessels are patent with mild to moderate a therosclerotic change. LEFT PELVIS: The left common iliac, internal iliac, and external iliac vessels are patent with mild to moderate at herosclerotic change. RIGHT THIGH: The moderate to large right groin pseudoaneurysm is again visualized. This measures up to at least 3 x 2.5 cm in diameter. The communication with the common femoral artery measures up to 7 mm. There is surrounding soft tissue swelling and hematoma. The superficial femoral and profunda vessels are paten t with atherosclerotic changes. There is no significant stenosis. LEFT THIGH: The superficial femoral and profunda vessels are patent atherosclerotic changes. There is no signific ant stenosis. RIGHT KNEE: The distal femoral and popliteal arteries are patent without luminal irregularity. LEFT KNEE: The distal femoral and popliteal arteries are patent without luminal irregularity. RIGHT LEG: The trifurcation is intact. Mild calcification and plaque is present. The distal anterior tibial shaina ry cannot be visualized. LEFT LEG: The trifurcation is intact. Mild calcification and plaque is present. The distal anterior tibial shaina ry cannot be visualized. There is a nonobstructing left renal calculus measuring up to approximately 11 mm. There is a simple cyst in left kidney as well. Multiple diverticuli are present. The adrenal glands appear thickened bi laterally. CONCLUSION: 1. Oderate 2 large pseudoaneurysm again noted. 2. Diffuse atherosclerotic change with no aneurysm or high-grade stenosis identified. There are small ulcerative plaques in the abdominal aorta. 3. The distal anterior tibial arteries could not be visualized on either side and this is likely tech nical in nature. 4. Nonobstructing left renal calculus. Prasanna Llanes MD on March 04, 2017 at 20:14 Board Certified Radiologist. This report was verified electronically.
[2017-03-04] MEDS: PRAVASTATIN SOD 80 MG TAB PO SCH (21:00)
[2017-03-04] MEDS ORDERED: ONDANSETRON HCL 4 MG/2 ML VIAL IV PUSH PRN (21:30)
[2017-03-04] MEDS ORDERED: Post-op Orders (for Pharmacy) MISC OTHER ONE (21:30)
[2017-03-04] MEDS ORDERED: MAGNESIUM HYDROXIDE SUSP 30 ML CUP PO PRN (21:30)
[2017-03-04] MEDS: SODIUM CHLOR 0.9% 1000 ML INJ 1,000 ML IV SCH (21:30)
--- NOTE | 2017-03-04 21:33 | HHI.PR ---
Immediate Post Op Note Procedure Date: Mar 04, 2017 Pre Op Diagnosis: (1) Pseudoaneurysm of right femoral artery Post Op Diagnosis: (1) Pseudoaneurysm of right femoral artery Surgeon: Samir Medina Aligner Barrel And Receiver(s): Duc Leblanc Procedure: Right SFA pseudoaneurysm repair Findings: Right groin hematoma and pseudoaneurysm Additional Information: NA Complications: None Specimen(s) removed: NA Estimated blood loss: 300cc Anesthesia: General Drains: ARNEL Fluids: 700 IVF Tourniquet time (min at mmHg) NA Patient to: PACU Patient Condition: Good Implant/Devices: SEE IMPLANT LOG (if applicable) Date/Time of Procedure: SEE SURGICAL CARE RECORD Samir Medina DO Mar 04, 2017 21:33
[2017-03-04] MEDS ORDERED: TERBUTALINE INJ 1 MG/ML AMP SQ PRN (23:15)
[2017-03-04] MEDS ORDERED: PHENYLEPHRINE INJ 40 MG in DEXTROSE 5% IN WATE 500 ML INJ 496 ML IV PRN ×2 (23:15)
--- NOTE | 2017-03-04 23:35 | PD.CONS ---
[facility] Service Critical Care Medicine Consult Requested By Dr. Medina Reason for Consult Critical care management Primary Care Physician No Primary Care Physician History of Present Illness 76 yo WF with PMH of COPD, hypertension, hyperlipidemia, diabetes mellitus, CAD s/p stent 1999 and angioplasty 2005 who presented to [facility] ED 02/28 with CP and SOB. She had NSTEMI with troponin 0.71 and underwent cardiac cath 03/02 that demonstrated single vessel CAD, with ADALI x2 to PDA by Dr. Maddox. Ejection fraction is 20-25%. She subsequently developed ecchymoses of right thigh and lower extremity u/s showed pseudoaneurysm. She has undergone right femoral pseudoaneurysm repair by Dr. Medina. She received 900 crystalloid and EBL was 300. She was placed on phenylephrine which was running at 40 mcg/min. [facility] is consulted to assist with medical management. She is receiving [address] Medina. She denies CP or SOB. She had some sharp shooting pains in right leg that later resolved. Remainder of ROS negative. Past Family Social History Allergies: Coded Allergies: penicillin G (Unverified Allergy, Severe, Drowsiness, 01/24/17) Past Medical History Diabetes Left bundle branch block Chronic systolic heart failure Hyperlipidemia Hypertension COPD Tobacco abuse Past Surgical History Appendectomy Cholecystectomy Total abdominal hysterectomy and BSO Reported Medications Simvastatin 40 g by mouth daily at bedtime Ramipril 10 mill grams by mouth daily Metformin 500 mill grams by mouth twice a day Family History Mother of metastatic cancer at age 52 Father from sepsis secondary to cholecystitis age 78 Social History [id number] history of smoking, currently smoking 1/2 ppd. No EtOH or illicit drug use. Physical Exam Vital Signs Vital Signs Date Time Temp Pulse Resp B/P (MAP) Pulse Ox O2 Delivery O2 Flow Rate FiO2 03/04/17 23:28 98.1 92 16 88/48 98 03/04/17 23:07 98.4 79 19 102/46 95 03/04/17 22:35 98 Simple Mask 6.00 03/04/17 18:00 85 03/04/17 17:00 92 03/04/17 16:00 88 03/04/17 15:00 98.7 82 16 138/70 (92) 98 03/04/17 15:00 90 03/04/17 14:00 90 03/04/17 14:00 78 03/04/17 13:00 92 03/04/17 12:00 90 03/04/17 11:00 98.9 84 18 110/63 (79) 95 03/04/17 11:00 88 03/04/17 10:00 92 03/04/17 09:00 78 03/04/17 08:56 94 Nasal Cannula 2.00 03/04/17 08:00 74 03/04/17 07:00 76 03/04/17 07:00 Nasal Cannula 2.00 03/04/17 07:00 97.8 67 17 106/77 (87) 97 03/04/17 06:00 79 03/04/17 05:00 74 03/04/17 04:00 98.1 73 22 90/52 (65) 95 03/04/17 04:00 73 03/04/17 04:00 Nasal Cannula 4.00 03/04/17 03:00 77 03/04/17 02:00 75 03/04/17 01:00 79 03/04/17 00:00 73 03/04/17 00:00 Nasal Cannula 03/04/17 00:00 98.4 73 22 91/47 (62) 96 Physical Exam Rate of 85, sinus rhythm with PACs on the monitor. Blood pressure 104/49 with mean arterial pressure of 67, sats 99% on simple mask GENERAL: female who is laying down in CVICU bed, alert and communicative. SKIN: Warm and dry. HEAD: Atraumatic. Normocephalic. EYES: Pupils equal and round, 3mm and reactive bilaterally. No scleral icterus. No injection or drainage. ENT: No nasal bleeding or discharge. Mucous membranes pink and moist. NECK: Trachea midline. . CARDIOVASCULAR: regular. No murmurs rubs or gallops. Sinus rhythm with PACS on the monitor with rate 80s. RESPIRATORY: Breathing comfortably on simple mask with no accessory muscle use. Clear to auscultation bilaterally without wheezes Rales or rhonchi appreciated. GASTROINTESTINAL: Abdomen soft, non-tender, nondistended. Bowel sounds present. : Madden in place with light yellow urine output. MUSCULOSKELETAL: Extremities without clubbing, cyanosis, or edema.There is negative pressure dressing in place right groin. Dveon-wrap is in place over thigh which is ecchymotic but soft without hematoma. ARNEL has bloody output 75 over last hour and 45 minutes. Dopplerable [employer]TE[employer]CE pulses bilaterally. NEUROLOGICAL: Awake and alert. Motor grossly within normal limits. Normal speech, oriented x3. Laboratory Laboratory Tests Test 03/04/17 07:12 White Blood Count 9.1 Red Blood Count 3.82 Hemoglobin 11.6 Hematocrit 34.7 Mean Corpuscular Volume 90.9 Mean Corpuscular Hemoglobin 30.4 Mean Corpuscular Hemoglobin Concent 33.4 Red Cell Distribution Width 13.1 Platelet Count 121 Mean Platelet Volume 9.4 Neutrophils (%) (Auto) 84.6 Lymphocytes (%) (Auto) 7.7 Monocytes (%) (Auto) 7.3 Eosinophils (%) (Auto) 0.1 Basophils (%) (Auto) 0.3 Neutrophils # (Auto) 7.7 Lymphocytes # (Auto) 0.7 Monocytes # (Auto) 0.7 Eosinophils # (Auto) 0.0 Basophils # (Auto) 0.0 CBC Comment DIFF FINAL Differential Comment Blood Urea Nitrogen 16 Creatinine 0.67 Random Glucose 140 Calcium Level 8.6 Phosphorus Level 2.6 Magnesium Level 2.1 Sodium Level 141 Potassium Level 3.9 Chloride Level 102 Carbon Dioxide Level 32.9 Anion Gap 6 Estimat Glomerular Filtration Rate 86 Result Diagram: 03/04/17 0712 03/04/17 0712 Assessment and Plan Assessment and Plan NEURO: Peripheral neuropathy Acetaminophen/Lortab as needed for pain. Morphine as needed for breakthrough pain RESP: COPD Tobacco abuse Continue DuoNeb every 6 hours CV: NSTEMI s/p ADALI x2 to PDA by Dr. Maddox 03/02. Coronary artery disease Left bundle branch block Chronic systolic heart failure, likely combination of ischemic and nonischemic/ dilated cardiomyopathy. R femoral pseudoaneurysm status post repair 03/[address] Moon ner Previously on aspirin and Brillinta which was held for pseudoaneurysm repair. She is hypotensive post procedure. EBL was 300. Bedside echo with EF 20%, with adequate RV filling, does not appear volume depleted. Was on escalating dose of phenylephrine.Transitioned to levophed to afford some B1 given the poor EF. EKG with LBB and no acute changes, no CP, troponin stable so do not think acute ischemia is etiology of the hypotension. Echo 03/01/1717 grade 2 diastolic dysfunction. Severely dilated LV with LVH, RV and bi-atrial dilation. Neurovascular checks, monitoring ARNEL output WAs oozing in OR. Received protamine 40 mg IV and FFP [address] Medina and will hold off on plt transfusion if bleeding decreases after FFP. Will need to return to antiplatelet therapy due to risk of stent thrombosis , timing to be determined by clinical course and collaboration with cardiology/ CVS. Continue pravastatin 80 mg by mouth daily at bedtime GI: NPO except meds FEN/RENAL: Madden in place. Monitor intake and output. Monitor electrolytes Replace electrolytes as indicated per ICU likely replacement protocol. ID: Vancomycin. Procedure. Monitor for evidence infection. HEME: Acute blood loss anemia Intraoperative EBL for pseudoaneurysm repair 300. Transfuse 2 units FFP 03/05 . Repeat hemoglobin 8.4 at 03 100. Was 11.6 preoperative. Her hemoglobin was 16.9 on 12/05 so this is in part dilutional but she remains hypotensive so will transfuse 1 unit PRBC and assess response. ENDO: Diabetes mellitus Low dose insulin sliding scale bedside glucose before meals/at bedtime PROPH: Famotidine 20 mill grams by mouth twice a day for stress ulcer prophylaxis. Avoid pharmacologic DVT prophylaxis due to concern for hemorrhage. Avoid SCDs due to peripheral vascular disease ACCESS: Has PIV will need central venous line if not weaning off Levophed quickly postop Level 3 Consult Kaley Rosenberg MD Mar 04, 2017 23:35
[2017-03-05] VITALS (12 sets, daily range): BP systolic 83–128; BP diastolic 46–70; PULSE 78–96; RESP 15–19; TEMP 97.9–99.3; O2SAT 92–99
[2017-03-05] MEDS ORDERED: TERBUTALINE INJ 1 MG/ML AMP SQ PRN (03:15)
[2017-03-05 03:22] LABS: AUTOMATED NEUTROPHIL # 6.3 TH/MM3 (1.8-7.7); BASOPHIL % 0.3 % (0.0-2.0); EOSINOPHIL # 0.1 TH/MM3 (0-0.4); EOSINOPHIL % 1.4 % (0.0-4.0); HEMATOCRIT 25.6 % (35.0-46.0); HEMO FLAGS DIFF FINAL; LYMPH % 13.5 % (9.0-44.0); LYMPHOCYTE # 1.1 TH/MM3 (1.0-4.8); MEAN CELL VOLUME 90.4 FL (80.0-100.0); MEAN CORPUSCULAR HEMOGLOBIN 29.8 PG (27.0-34.0); MONO % 9.5 % (0.0-8.0); NEUT % 75.3 % (16.0-70.0); PLATELET COUNT 131 TH/MM3 (150-450); RED BLOOD COUNT 2.83 MIL/MM3 (4.00-5.30); RED CELL DISTRIBUTION WIDTH 13.2 % (11.6-17.2); WHITE BLOOD COUNT 8.4 TH/MM3 (4.0-11.0)
[2017-03-05 03:40] LABS: APTT (PATIENT) 25.5 SEC (24.3-30.1); PROTHROMBIN TIME - PATIENT 10.6 SEC (9.8-11.6)
[2017-03-05] MEDS: NOREPINEPHRINE-DEXTROSE DRIP 250 ML IV PRN ×2 (03:43→16:13)
[2017-03-05 04:08] LABS: BICARBONATE 34.3 MEQ/L (21.0-32.0); POTASSIUM 3.2 MEQ/L (3.5-5.1)
[2017-03-05] MEDS: RESP: ALBUTEROL 2.5 MG/IPRATROPIUM 0.5 MG NEB (SCH) NEB ×4 (05:25→21:04)
[2017-03-05] MEDS ORDERED: SODIUM CHLOR 0.9% 250 ML INJ 250 ML IV ONE (06:00)
[2017-03-05] MEDS ORDERED: MAGNESIUM OXIDE 400 MG TAB PO PRN (06:00)
[2017-03-05] MEDS ORDERED: MAGNESIUM SULFATE INJ 2 GM in SODIUM CHLORIDE 0.9% INJ 96 ML IV PRN (06:00)
[2017-03-05] MEDS ORDERED: POTASSIUM CHLORIDE 25 MEQ EFFERVESCENT TAB PO PRN (06:00)
[2017-03-05] MEDS ORDERED: POTASSIUM CHLOR 40 MEQ PREMIX 100 ML IV PRN (06:00)
[2017-03-05] MEDS ORDERED: MAGNESIUM SULFATE INJ 4 GM in SODIUM CHLORIDE 0.9% INJ 92 ML IV PRN (06:00)
[2017-03-05] MEDS ORDERED: POTASSIUM PHOSPHATE INJ 30 MMOL in SODIUM CHLOR 0.9% 250 ML INJ 250 ML IV PRN (06:00)
[2017-03-05] MEDS ORDERED: FUROSEMIDE 20 MG/2 ML VIAL IV ONE (06:00)
[2017-03-05] MEDS ORDERED: POTASSIUM PHOSPHATE MONOBASIC 500 MG TAB PO PRN (06:00)
[2017-03-05] MEDS ORDERED: POTASSIUM CHLOR 20 MEQ PREMIX 100 ML IV PRN ×2 (06:00)
[2017-03-05] MEDS ORDERED: POTASSIUM PHOSPHATE MONOBASIC 500 MG TAB PO/TUBE PRN (06:00)
[2017-03-05] MEDS ORDERED: SODIUM PHOSPHATE INJ 30 MMOL in SODIUM CHLOR 0.9% 250 ML INJ 240 ML IV PRN (06:00)
[2017-03-05] MEDS: POTASSIUM CHLOR 40 MEQ PREMIX 100 ML IV PRN ×2 (06:42→10:20)
--- NOTE | 2017-03-05 07:12 | MP ---
cc: YUE CLEMENTE DATE OF SURGERY 03/04/2017 PREOPERATIVE DIAGNOSIS Right groin pseudoaneurysm. POSTOPERATIVE DIAGNOSIS Right groin pseudoaneurysm. PROCEDURE Right superficial femoral artery pseudoaneurysm repair. SURGEON MD Carol HYPERION DEVELOPER Duc Leblanc ANESTHESIA General. PREOPERATIVE ANTIBIOTICS IV vancomycin. THE PATIENT HAS ALLERGY TO PENICILLIN. IV FLUIDS 750. ESTIMATED BLOOD LOSS 300. URINE OUTPUT 325 cc COMPLICATIONS None. DISPOSITION To PACU. PROCEDURE The patient's right groin was prepped and draped in sterile fashion. The right leg and groin were prepped and draped in sterile fashion after being under general endotracheal anesthesia. I made a vertical incision over the indurated area in the right groin medially up. I made an incision with scalpel and electrocautery. I dissected down through the already hematoma and subcutaneous edematous tissue. It was impregnated with blood. There was active bleeding from the artery. We controlled with digital pressure of the common femoral and SFA until we can get control around the profunda femoral artery. It be should noted the pseudoaneurysm originated from the proximal SFA. Once I got a vessel loop around the right common femoral and profunda femoral arteries, we heparinized the patient with 5000 units of heparin. Then I placed a pediatric profunda clamp around the proximal SFA and used one 5-0 Prolene in order to repair the pseudoaneurysm neck. There was a good pulsatile flow distally and the signal in the posterior tibial was the same as preoperatively. We then took care of the enlarged sac. We did use some small medium clips and then used 2-0 ties to help out with some of the venous tributaries and lymphatics. The area was irrigated with approximately 500 cc of fluid and meticulously closed in layers with interrupted 2-0 Vicryl absorbable sutures. We used FloSeal and Sudheer as well as Surgicel help out with hemostasis. The patient did have a large sac so I did leave a Emmett-Renee drain through a separate stab wound, a #10 ARNEL drain through a separate stab incision and left it in the superficial subcutaneous space at the area of the lymphatics. I then used a 3-0 Vicryl absorbable suture over top of this and a 4-0 Monocryl with a Prevena VAC over the skin. The patient tolerated the procedure well and was taken to the ICU at the end of the case. DO NAN Frausto /9:25 PM /7:03 AM
[2017-03-05] MEDS: INSULIN ASPART SUPPLEMENTAL SCALE SQ SCH ×4 (08:00→20:41)
[2017-03-05] MEDS: FUROSEMIDE 40 MG/4 ML VIAL IV PUSH SCH (08:50)
[2017-03-05] MEDS: VANCOMYCIN INJ 1,000 MG in SODIUM CHLOR 0.9% 250 ML INJ 250 ML IV SCH ×2 (08:50→19:48)
[2017-03-05] MEDS: FAMOTIDINE 20 MG TAB PO SCH ×2 (08:50→20:43)
[2017-03-05] MEDS: SODIUM CHLORIDE 0.9% FLUSH 10 ML FLUSH IV FLUSH SCH ×2 (08:51→20:43)
[2017-03-05] MEDS: SODIUM CHLOR 0.9% 1000 ML INJ 1,000 ML IV SCH ×2 (08:57→16:13)
[2017-03-05] MEDS: guaiFENesin E.R. 600 MG TAB PO SCH ×2 (09:24→20:43)
[2017-03-05] MEDS: ASPIRIN 81 MG CHEW TAB PO SCH (09:24)
--- NOTE | 2017-03-05 10:09 | PD.VS.PN ---
Subjective POD #: 1 Procedure(s): right femoral artery pseudoaneurysm repair. Subjective/Hospital Course Patient without complaints. Objective Vitals/I&O Date Time Temp Pulse Resp B/P (MAP) Pulse Ox O2 Delivery O2 Flow Rate FiO2 03/05/17 07:02 99.3 82 17 128/61 92 03/05/17 06:48 98.7 79 16 114/68 93 03/05/17 04:00 88 106/49 03/05/17 04:00 88 106/49 03/05/17 03:43 81 98/56 03/05/17 03:00 85 03/05/17 03:00 98.3 85 17 104/46 (65) 99 03/05/17 01:50 16 03/05/17 00:54 83 98/50 03/05/17 00:20 98.2 84 19 97/48 95 03/05/17 00:00 98.2 85 17 83/46 (58) 96 03/05/17 00:00 88 03/05/17 00:00 98.6 88 17 83/46 (58) 99 03/05/17 00:00 Nasal Cannula 2.00 03/04/17 23:47 97.4 95 21 105/51 99 03/04/17 23:35 98.1 89 21 110/51 99 03/04/17 23:28 98.1 92 16 88/48 98 03/04/17 23:07 98.4 79 19 102/46 95 03/04/17 22:35 98 Simple Mask 6.00 03/04/17 18:00 85 03/04/17 17:00 92 03/04/17 16:00 88 03/04/17 15:00 98.7 82 16 138/70 (92) 98 03/04/17 15:00 90 03/04/17 14:00 90 03/04/17 14:00 78 03/04/17 13:00 92 03/04/17 12:00 90 03/04/17 11:00 98.9 84 18 110/63 (79) 95 03/04/17 11:00 88 03/05/17 03/05/17 03/05/17 07:00 15:00 23:00 Intake Total 613 ml Output Total 1093 ml Balance -480 ml Exam: strong signal right PT. Right groin with vac dressing in place and ARNEL drain with 10cc serosanguinous drainage. Laboratory Laboratory Tests Test 03/05/17 03:11 White Blood Count 8.4 Red Blood Count 2.83 Hemoglobin 8.4 Hematocrit 25.6 Mean Corpuscular Volume 90.4 Mean Corpuscular Hemoglobin 29.8 Mean Corpuscular Hemoglobin Concent 33.0 Red Cell Distribution Width 13.2 Platelet Count 131 Mean Platelet Volume 8.5 Neutrophils (%) (Auto) 75.3 Lymphocytes (%) (Auto) 13.5 Monocytes (%) (Auto) 9.5 Eosinophils (%) (Auto) 1.4 Basophils (%) (Auto) 0.3 Neutrophils # (Auto) 6.3 Lymphocytes # (Auto) 1.1 Monocytes # (Auto) 0.8 Eosinophils # (Auto) 0.1 Basophils # (Auto) 0.0 CBC Comment DIFF FINAL Differential Comment Prothrombin Time 10.6 Prothromb Time International Ratio 1.0 Activated Partial Thromboplast Time 25.5 Blood Urea Nitrogen 15 Creatinine 0.62 Random Glucose 111 Calcium Level 7.5 Sodium Level 144 Potassium Level 3.2 Chloride Level 104 Carbon Dioxide Level 34.3 Anion Gap 6 Estimat Glomerular Filtration Rate 94 Lactic Acid Level 0.8 Troponin I 0.34 Assessment and Plan Assessment: (1) Pseudoaneurysm of right femoral artery Plan 76 y.o.f. with hx of cardiac catheterization with resultant right groin pseudoaneurysm. status post repair. Plan for aspirin at this point to allow for hemostasis. Spoke with Dr. Maddox about this. Bed rest today and mobilization to chair in am. Samir Medina DO, Samir Stevens DO Mar 05, 2017 10:09
[2017-03-05 12:32] LABS: REVIEW FLAG FINAL
[2017-03-05] MEDS: ACETAMINOPHEN/HYDROcodone 325 MG/5 MG TAB PO PRN (13:10)
--- NOTE | 2017-03-05 13:22 | PD.CARD.PN ---
Subjective Subjective Remarks Denies angina, dyspnea, dizziness, palpitations, groin pain. Objective Medications Item Value Date Time Norepinephrine 250 ml @ 7.5 mls/hr 03/05/17 0315 Bitartrate TITRATE PRN/IV 03/05/17 0343 Phenylephrine HCl 500 ml @ 30 mls/hr 03/04/17 2315 40 mg/Dextrose TITRATE PRN/IV 03/05/17 0054 Furosemide 40 mg 03/03/17 1115 (Lasix Inj) DAILY/IV PUSH 03/04/17 0927 Aspirin 81 mg 03/03/17 0900 (Aspirin Chew) DAILY/PO 03/04/17 0900 Pravastatin Sodium 80 mg 02/28/17 2100 (Pravachol) HS/PO Furosemide 40 mg 03/03/17 1115 (Lasix Inj) DAILY/IV PUSH 03/05/17 0850 Aspirin 81 mg 03/03/17 0900 (Aspirin Chew) DAILY/PO 03/05/17 0924 Vital Signs / I&O Vital Signs Date Time Temp Pulse Resp B/P (MAP) Pulse Ox O2 Delivery O2 Flow Rate FiO2 03/05/17 12:00 97.9 93 15 102/59 (73) 94 120/64 (82) 03/05/17 12:00 93 03/05/17 11:26 94 Nasal Cannula 4.00 03/05/17 07:10 98.1 96 15 107/48 (67) 94 03/05/17 07:10 96 03/05/17 07:10 Nasal Cannula 2.00 03/05/17 07:02 99.3 82 17 128/61 92 03/05/17 06:48 98.7 79 16 114/68 93 03/05/17 04:00 88 106/49 03/05/17 04:00 88 106/49 03/05/17 03:43 81 98/56 03/05/17 03:00 85 03/05/17 03:00 98.3 85 17 104/46 (65) 99 03/05/17 01:50 16 03/05/17 00:54 83 98/50 03/05/17 00:20 98.2 84 19 97/48 95 03/05/17 00:00 98.2 85 17 83/46 (58) 96 03/05/17 00:00 88 03/05/17 00:00 98.6 88 17 83/46 (58) 99 03/05/17 00:00 Nasal Cannula 2.00 03/04/17 23:47 97.4 95 21 105/51 99 03/04/17 23:35 98.1 89 21 110/51 99 03/04/17 23:28 98.1 92 16 88/48 98 03/04/17 23:07 98.4 79 19 102/46 95 03/04/17 22:35 98 Simple Mask 6.00 03/04/17 18:00 85 03/04/17 17:00 92 03/04/17 16:00 88 03/04/17 15:00 98.7 82 16 138/70 (92) 98 03/04/17 15:00 90 03/04/17 14:00 90 03/04/17 14:00 78 I/O 03/04/17 03/04/17 03/04/17 03/05/17 03/05/17 03/05/17 07:00 15:00 23:00 07:00 15:00 23:00 Intake Total 240 ml 720 ml 613 ml 489 ml Output Total 1400 ml 1700 ml 1093 ml Balance -1160 ml -980 ml -480 ml 489 ml Intake Oral 240 ml 720 ml IV Total 62 ml Packed Cells 389 ml FFP 501 ml Blood Product IV Normal Saline Flush 50 ml 100 ml Output Urine Total 1400 ml 1700 ml 1023 ml Drainage Total 70 ml # Voids 1 # Bowel Movements 0 Physical Exam GENERAL: Well developed, well nourished. No acute distress. HEENT: Jugular venous pressure is normal. CHEST: Lungs clear to auscultation anteriorly. CARDIAC: Regular rate and rhythm without S3, S4. I-II/ systolic murmur left lower sternal border. ABDOMEN: Soft, nontender, no hepatosplenomegaly. Bowel sounds present. Laboratory Laboratory Tests Test 03/05/17 03:11 03/05/17 11:30 White Blood Count 8.4 TH/MM3 Red Blood Count 2.83 MIL/MM3 Hemoglobin 8.4 GM/DL 10.2 GM/DL Hematocrit 25.6 % 31.0 % Mean Corpuscular Volume 90.4 FL Mean Corpuscular Hemoglobin 29.8 PG Mean Corpuscular Hemoglobin Concent 33.0 % Red Cell Distribution Width 13.2 % Platelet Count 131 TH/MM3 Mean Platelet Volume 8.5 FL Neutrophils (%) (Auto) 75.3 % Lymphocytes (%) (Auto) 13.5 % Monocytes (%) (Auto) 9.5 % Eosinophils (%) (Auto) 1.4 % Basophils (%) (Auto) 0.3 % Neutrophils # (Auto) 6.3 TH/MM3 Lymphocytes # (Auto) 1.1 TH/MM3 Monocytes # (Auto) 0.8 TH/MM3 Eosinophils # (Auto) 0.1 TH/MM3 Basophils # (Auto) 0.0 TH/MM3 CBC Comment DIFF FINAL Differential Comment Prothrombin Time 10.6 SEC Prothromb Time International Ratio 1.0 RATIO Activated Partial Thromboplast Time 25.5 SEC Blood Urea Nitrogen 15 MG/DL Creatinine 0.62 MG/DL Random Glucose 111 MG/DL Calcium Level 7.5 MG/DL Sodium Level 144 MEQ/L Potassium Level 3.2 MEQ/L Chloride Level 104 MEQ/L Carbon Dioxide Level 34.3 MEQ/L Anion Gap 6 MEQ/L Estimat Glomerular Filtration Rate 94 ML/MIN Lactic Acid Level 0.8 mmol/L Troponin I 0.34 NG/ML Assessment and Plan Problem List: (1) CAD (coronary artery disease) ICD Codes: I25.10 - Atherosclerotic heart disease of [place] coronary artery without angina pectoris Plan: Stable overnight. No further angina s/p stent x 2 of distal RCA last week. Patient now 1 day s/p surgical repair of right femoral pseudoaneurysm, still with small amount of bleeding. REC continue aspirin resume Brilinta when possible (2) Dilated cardiomyopathy ICD Codes: I42.0 - Dilated cardiomyopathy Status: Chronic Plan: EF ~ 20%. Appears patient has component of non-ischemic cardiomyopathy as well. Symptomatically better. BP's too low still for beta juan, SERGIO-I therapy. REC consider changing furosemide to oral repeat echo in about 90 days Code Status full code Discussed Condition With patient and Dr. Medina Problem Qualifiers (1) CAD (coronary artery disease): Qualified Codes: I25.110 - Atherosclerotic heart disease of [place] coronary artery with unstable angina pectoris Jair Maddox MD Mar 05, 2017 13:22
--- NOTE | 2017-03-05 14:01 | EKG ---
Date Performed: 03/05/2017 Time Performed: 03:17:08 PTAGE: 76 years EKG: Sinus rhythm Left bundle branch block Compared to prior tracing no significant change Abnormal ECG PREVIOUS TRACING : 03/01/2017 00.38 DOCTOR: Easton Infante Interpretating Date/Time 03/05/2017 13:59:32
--- NOTE | 2017-03-05 15:05 | HHI.PR ---
Subjective Remarks Follow-up for pseudoaneurysm repair Patient has no complaints. She stated that her fatigue is improving. Denied any pain. Patient remains afebrile. Objective Vitals Vital Signs Date Time Temp Pulse Resp B/P (MAP) Pulse Ox O2 Delivery O2 Flow Rate FiO2 03/05/17 12:00 97.9 93 15 102/59 (73) 94 120/64 (82) 03/05/17 12:00 93 03/05/17 11:26 94 Nasal Cannula 4.00 03/05/17 07:10 98.1 96 15 107/48 (67) 94 03/05/17 07:10 96 03/05/17 07:10 Nasal Cannula 2.00 03/05/17 07:02 99.3 82 17 128/61 92 03/05/17 06:48 98.7 79 16 114/68 93 03/05/17 04:00 88 106/49 03/05/17 04:00 88 106/49 03/05/17 03:43 81 98/56 03/05/17 03:00 85 03/05/17 03:00 98.3 85 17 104/46 (65) 99 03/05/17 01:50 16 03/05/17 00:54 83 98/50 03/05/17 00:20 98.2 84 19 97/48 95 03/05/17 00:00 98.2 85 17 83/46 (58) 96 03/05/17 00:00 88 03/05/17 00:00 98.6 88 17 83/46 (58) 99 03/05/17 00:00 Nasal Cannula 2.00 03/04/17 23:47 97.4 95 21 105/51 99 03/04/17 23:35 98.1 89 21 110/51 99 03/04/17 23:28 98.1 92 16 88/48 98 03/04/17 23:07 98.4 79 19 102/46 95 03/04/17 22:35 98 Simple Mask 6.00 03/04/17 18:00 85 03/04/17 17:00 92 03/04/17 16:00 88 03/04/17 15:00 98.7 82 16 138/70 (92) 98 03/04/17 15:00 90 I/O 9/24/17 9/2403/04/17 03/05/17 03/05/17 03/05/17 07:00 15:00 23:00 07:00 15:00 23:00 Intake Total 240 ml 720 ml 613 ml 489 ml Output Total 1400 ml 1700 ml 1093 ml Balance -1160 ml -980 ml -480 ml 489 ml Intake Oral 240 ml 720 ml IV Total 62 ml Packed Cells 389 ml FFP 501 ml Blood Product IV Normal Saline Flush 50 ml 100 ml Output Urine Total 1400 ml 1700 ml 1023 ml Drainage Total 70 ml # Voids 1 # Bowel Movements 0 Result Diagram: 03/05/17 1130 03/05/17 0311 Objective Remarks GENERAL: SKIN: Right groin Devon bandage in place with ARNEL drain showing minimal blood. HEAD: Normocephalic. EYES: No scleral icterus. No injection or drainage. NECK: Supple, trachea midline. No JVD or lymphadenopathy. CARDIOVASCULAR: Regular rate and rhythm without murmurs, gallops, or rubs. Trace edema in the lower extremity. RESPIRATORY: Breath sounds equal bilaterally. No accessory muscle use. GASTROINTESTINAL: Abdomen soft, non-tender, nondistended. Medications and IVs Current Medications Sodium Chloride (NS Flush) 2 ml UNSCH PRN IVF FLUSH AFTER USING IV ACCESS; Start 02/28/17 at 13:30; Stop 03/03/17 at 13:27; Status DC Albuterol/ Ipratropium (Duoneb Neb) 1 ampule Q15M INH Last administered on 02/28 13:30; Start 02/28/17 at 13:30; Stop 02/28/17 at 13:46; Status DC Methylprednisolone Sodium Succinate (SoluMEDROL INJ) 125 mg ONCE ONCE IV PUSH Last administered on 02/28/17 14:15; Start 02/28/17 at 14:15; Stop 02/28/17 at 14:16; Status DC Aspirin (Aspirin Chew) 324 mg ONCE ONCE PO Last administered on 02/28/17 14: 43; Start 02/28/17 at 14:45; Stop 02/28/17 at 14:46; Status DC Furosemide (Lasix Inj) 20 mg ONCE ONCE IV PUSH Last administered on 02/28/17 14:55; Start 02/28/17 at 14:45; Stop 02/28/17 at 14:46; Status DC Iohexol (Omnipaque 350 Inj) 74 ml STK-MED ONCE IVCONTRAST Last administered on 02/28/17 12:53; Start 02/28/17 at 12:53; Stop 02/28/17 at 15:11; Status DC Heparin Sodium (Porcine) (Heparin Inj) 4,000 units ONCE ONCE IV Last administered on 02/28/17 18:11; Start 02/28/17 at 17:30; Stop 02/28/17 at 17:31 ; Status DC Heparin Sodium (Porcine) (Heparin Inj) 5,000 units UNSCH PRN IV APTT LESS THAN 25; Start 02/28/17 at 23:30; Stop 03/02/17 at 09:48; Status DC Heparin Sodium (Porcine) (Heparin Inj) 2,500 units UNSCH PRN IV APTT 25 TO 39 Last administered on 03/01/17 22:09; Start 02/28/17 at 23:30; Stop 03/02/17 at 09:48; Status DC Heparin Sodium/ Dextrose 250 ml @ 9.36 mls/hr TITRATE PRN IV Coagulation management Last administered on 03/01/17 18:34; Start 02/28/17 at 17:30; Stop 03/02/17 at 09:48; Status DC Ramipril (Altace) 10 mg DAILY PO Last administered on 03/02/17 13:01; Start at 09:00; Status Future Hold Pravastatin Sodium (Pravachol) 80 mg HS PO Last administered on 03/03/17 21:42 ; Start 02/28/17 at 21:00 Sodium Chloride (NS Flush) 2 ml BID IV FLUSH Last administered on 03/05/17 08: 51; Start 02/28/17 at 21:00 Sodium Chloride (NS Flush) 2 ml UNSCH PRN IV FLUSH FLUSH AFTER USING IV ACCESS ; Start 02/28/17 at 18:15; Stop 03/03/17 at 13:27; Status DC Aspirin (Aspirin Chew) 162 mg DAILY PO Last administered on 03/01/17 09:30; Start 03/01/17 at 09:00; Stop 03/02/17 at 08:54; Status DC Metoprolol Tartrate (Lopressor) 25 mg BID PO Last administered on 03/01/17 22: 10; Start 02/28/17 at 21:00; Stop 03/02/17 at 08:48; Status DC Nitroglycerin (Nitroglycerin 2% Oint) 1 inch Q6HR TOP Last administered on 03/02 05:53; Start 02/28/17 at 19:30; Stop 03/02/17 at 08:54; Status DC Nitroglycerin (Nitrostat Sl) 0.4 mg Q5M PRN SL ANGINA; Start 02/28/17 at 18:15 Acetaminophen (Tylenol) 500 mg Q4H PRN PO PAIN 1-2 Last administered on 11:07; Start 02/28/17 at 18:15 Morphine Sulfate (Morphine Inj) 2 mg Q5M PRN IV PUSH breakthrough pain 6-10 Last administered on 03/05/17 00:45; Start 02/28/17 at 18:15 Famotidine (Pepcid) 20 mg BID PO Last administered on 03/05/17 08:50; Start at 21:00 Dextrose (D50w (Vial) Inj) 50 ml UNSCH PRN IV PUSH HYPOGLYCEMIA-SEE COMMENTS; Start 02/28/17 at 18:15 Glucagon (Glucagon Inj) 1 mg UNSCH PRN OTHER HYPOGLYCEMIA-SEE COMMENTS; Start 02/28/17 at 18:15 Insulin Aspart (NovoLOG SUPPLEMENTAL SCALE) 1 ACHS SLIDING SCALE SQ Last administered on 03/04/17 17:00; Start 02/28/17 at 21:00 Furosemide (Lasix Inj) 20 mg DAILY IV PUSH Last administered on 03/01/17 09:29 ; Start 03/01/17 at 09:00; Stop 03/02/17 at 08:54; Status DC Albuterol/ Ipratropium (Duoneb Neb) 1 ampule Q4HR NEB NEB Last administered on 03/05/17 05:25; Start 03/01/17 at 16:00; Stop 03/05/17 at 08:41; Status DC Guaifenesin (Mucinex Er) 600 mg BID PO Last administered on 03/05/17 09:24; Start 03/01/17 at 21:00 Sodium Chloride 1,000 ml @ 100 mls/hr Q10H IV Last administered on 03/03/17 08:43; Start 03/01/17 at 17:23; Stop 03/03/17 at 11:26; Status DC Aspirin (Aspirin) 325 mg [employer] PO ; Start 03/01/17 at 17:30; Stop 03/05/17 at 17:29 Diphenhydramine HCl (Benadryl) 50 mg [employer] PO Last administered on 05:54; Start 03/01/17 at 17:30; Stop 03/05/17 at 17:29 Diazepam (Valium) 10 mg [employer] PO ; Start 03/01/17 at 17:30; Stop 03/05/17 at 17:29 Midazolam HCl (Versed Inj) 2 mg STK-MED ONCE .ROUTE Last administered on 07:35; Start 03/02/17 at 07:24; Stop 03/02/17 at 07:25; Status DC Verapamil HCl (Isoptin Inj) 5 mg STK-MED ONCE .ROUTE ; Start 03/02/17 at 07:31; Stop 03/02/17 at 07:32; Status DC Heparin Sodium (Porcine) (Heparin Inj) 10,000 units STK-MED ONCE .ROUTE Last administered on 03/02/17 07:39; Start 03/02/17 at 07:31; Stop 03/02/17 at 07:32 ; Status DC Tirofiban/Sodium Chloride 250 ml @ As Directed STK-MED ONCE IV Last administered on 03/02/17 07:55; Start 03/02/17 at 07:53; Stop 03/02/17 at 07:54 ; Status DC Ticagrelor (Brilinta) 180 mg STK-MED ONCE PO Last administered on 03/02/17 08: 36; Start 03/02/17 at 08:31; Stop 03/02/17 at 08:32; Status DC Metoprolol Tartrate (Lopressor) 50 mg BID PO Last administered on 03/02/17 20: 15; Start 03/02/17 at 09:00; Status Future Hold Sodium Chloride 1,000 ml @ 100 mls/hr Q10H IV ; Start 03/02/17 at 08:46; Stop 03/02/17 at 21:04; Status DC IV Flush (NS Flush) 2 ml UNSCH PRN IVF FLUSH AFTER USING IV ACCESS; Start 03/02 at 09:00 Temazepam (Restoril) 15 mg HS PRN PO SLEEP; Start 03/02/17 at 21:00 Aspirin (Aspirin Chew) 81 mg DAILY PO Last administered on 03/05/17 09:24; Start 03/03/17 at 09:00 Ticagrelor (Brilinta) 90 mg BID PO Last administered on 03/04/17 09:26; Start 03/03/17 at 09:00; Status Future Hold Tirofiban/Sodium Chloride 250 ml @ 13.914 mls/ hr [id number] IV ; Start 03/02/17 at 08:46; Stop 03/02/17 at 20:52; Status DC Miscellaneous Information 1 ONCE ONCE XX ; Start 03/02/17 at 09:00; Stop at 09:48; Status DC Furosemide (Lasix) 40 mg DAILY PO Last administered on 03/02/17 13:01; Start 03/02/17 at 10:00; Stop 03/03/17 at 11:26; Status DC Iohexol (OMNIPAQUE 350 INJ ([employer] [place])) 100 ml STK-MED ONCE OTHER Last administered on 03/02/17 07:30; Start 03/02/17 at 07:30; Stop 03/02/17 at 09:53 ; Status DC Iohexol (OMNIPAQUE 350 INJ ([place] [place])) 50 ml STK-MED ONCE OTHER ; Start at 07:30; Stop 03/02/17 at 09:53; Status DC Midazolam HCl (Versed Inj) 2 mg ONCE ONCE IV ; Start 03/02/17 at 07:35; Stop at 11:11; Status DC Heparin Sodium (Porcine) (Heparin Inj) 5,000 units ONCE ONCE IV ; Start at 08:00; Stop 03/02/17 at 11:11; Status DC Ticagrelor (Brilinta) 180 mg ONCE ONCE PO ; Start 03/02/17 at 08:00; Stop 03/02 at 11:11; Status DC Atropine Sulfate (Atropine Inj) 1 mg STK-MED ONCE .ROUTE ; Start 03/02/17 at 11: 10; Stop 03/02/17 at 11:11; Status DC Furosemide (Lasix Inj) 40 mg DAILY IV PUSH Last administered on 03/05/17 08:50 ; Start 03/03/17 at 11:15 Potassium Chloride (KCl) 40 meq ONCE ONCE PO Last administered on 03/03/17 11 :49; Start 03/03/17 at 11:15; Stop 03/03/17 at 11:40; Status DC Potassium Chloride (KCl) 40 meq ONCE ONCE PO Last administered on 03/03/17 16 :23; Start 03/03/17 at 16:00; Stop 03/03/17 at 16:01; Status DC Methylprednisolone Sodium Succinate (SoluMEDROL INJ) 125 mg ONCE ONCE IV PUSH Last administered on 03/03/17 13:31; Start 03/03/17 at 13:30; Stop 03/03/17 at 13:31; Status DC Iohexol (Omnipaque 350 Inj) 100 ml STK-MED ONCE IVCONTRAST ; Start 03/04/17 at 18:44; Stop 03/04/17 at 18:45; Status DC Etomidate (Amidate Inj) 20 mg STK-MED ONCE .ROUTE ; Start 03/04/17 at 19:21; Stop 03/04/17 at 19:22; Status DC Heparin Sodium (Porcine) (Heparin Inj) 20,000 units STK-MED ONCE .ROUTE ; Start 03/04/17 at 19:39; Stop 03/04/17 at 19:40; Status DC Protamine Sulfate (Protamine Sulfate Inj) 50 mg STK-MED ONCE .ROUTE ; Start at 19:49; Stop 03/04/17 at 19:50; Status DC Heparin Sodium (Porcine) (Heparin Inj) 10,000 units STK-MED ONCE .ROUTE ; Start 03/04/17 at 19:49; Stop 03/04/17 at 19:50; Status DC Vancomycin HCl (Vancomycin Inj) 1,000 mg STK-MED ONCE .ROUTE Last administered on 03/04/17 08:38; Start 03/04/17 at 19:49; Stop 03/04/17 at 19:50; Status DC Thrombin (Thrombin Top [place]) 20,000 units STK-MED ONCE .ROUTE ; Start 03/04/17 at 19:49; Stop 03/04/17 at 19:50; Status DC Heparin Sodium/ Sodium Chloride 1,000 ml @ As Directed STK-MED ONCE .ROUTE Last administered on 03/04/17 19:49; Start 03/04/17 at 19:49; Stop 03/04/17 at 19:50; Status DC Bupivacaine HCl (Marcaine Pf 0.5% Inj) 30 ml STK-MED ONCE .ROUTE Last administered on 03/04/17 19:49; Start 03/04/17 at 19:49; Stop 03/04/17 at 19:50 ; Status DC Vasopressin (Pitressin Inj) 20 units STK-MED ONCE .ROUTE ; Start 03/04/17 at 19: 53; Stop 03/04/17 at 19:54; Status DC Sodium Chloride 1,000 ml @ 100 mls/hr Q10H IV Last administered on 03/05/17 08:57; Start 03/04/17 at 21:30; Stop 03/05/17 at 21:29 Ondansetron HCl (Zofran Inj) 4 mg Q6H PRN IV PUSH SEVERE NAUSEA AND/OR VOMITING ; Start 03/04/17 at 21:30 Magnesium Hydroxide (Milk Of Magnesia Liq) 30 ml DAILY PRN PO CONSTIPATION; Start 03/04/17 at 21:30 Docusate Calcium (Surfak) 240 mg HS PO ; Start 03/05/17 at 21:00 Vancomycin HCl 1000 mg/Sodium Chloride 250 ml @ 250 mls/hr Q12H IV Last administered on 03/05/17 08:50; Start 03/05/17 at 08:00; Stop 03/05/17 at 20:59 Miscellaneous Information (Post-op Orders (for Pharmacy)) STAT ONCE OTHER ; Start 03/04/17 at 21:30; Stop 03/04/17 at 21:40; Status DC Phenylephrine HCl 40 mg/Dextrose 500 ml @ 30 mls/hr TITRATE PRN IV Blood pressure management Last administered on 03/05/17 00:54; Start 03/04/17 at 23: 15 Terbutaline Sulfate (Brethine Inj) 1 mg UNSCH PRN SQ For Extravasation; Start 03/04/17 at 23:15; Stop 03/05/17 at 06:03; Status DC Norepinephrine Bitartrate 250 ml @ 7.5 mls/hr TITRATE PRN IV Blood pressure management Last administered on 03/05/17t 03:43; Start 03/05/17 at 03:15 Terbutaline Sulfate (Brethine Inj) 1 mg UNSCH PRN SQ For Extravasation; Start 03/05/17 at 03:15 Potassium Chloride 100 ml @ 50 mls/hr Q2H PRN IV For Potassium 2.8 - 3.2 mEq/ L Last administered on 03/05/17t 10:20; Start 03/05/17 at 06:00 Potassium Chloride 100 ml @ 50 mls/hr Q2H PRN IV For Potassium 2.8 - 3.2 mEq/L ; Start 03/05/17 at 06:00 Potassium Bicarb/ Potassium Chloride (K-Lyte Cl Eff) 50 meq UNSCH PRN PO For Potassium 3.3 - 3.5 mEq/L; Start 03/05/17 at 06:00 Potassium Chloride 100 ml @ 25 mls/hr UNSCH PRN IV For Potassium 3.3 - 3.5 mEq /L; Start 03/05/17 at 06:00 Potassium Chloride 100 ml @ 50 mls/hr Q2H PRN IV For Potassium 3.3 - 3.5 mEq/L ; Start 03/05/17 at 06:00 Magnesium Sulfate 4 gm/Sodium Chloride 100 ml @ 50 mls/hr UNSCH PRN IV For Magnesium 0.9 - 1.1 mg/dL; Start 03/05/17 at 06:00 Magnesium Oxide (Mag-Ox) 800 mg UNSCH PRN PO For Magnesium 1.2 - 1.6 mg/dL; Start 03/05/17 at 06:00 Magnesium Sulfate 2 gm/Sodium Chloride 100 ml @ 50 mls/hr UNSCH PRN IV For Magnesium 1.2 - 1.6 mg/dL; Start 03/05/17 at 06:00 Potassium Phosphate (K-Phos) 2,000 mg Q4H PRN PO For Phosphorus < 2.5 mg/dL; Start 03/05/17 at 06:00 Sodium Phosphate 30 mmol/Sodium Chloride 250 ml @ 42 mls/hr UNSCH PRN IV For Phosphorus < 2.5 mg/dL; Start 03/05/17 at 06:00 Potassium Phosphate (K-Phos) 2,000 mg UNSCH PRN PO/TUBE SEE LABEL COMMENTS; Start 03/05/17 at 06:00 Potassium Phosphate 30 mmol/ Sodium Chloride 260 ml @ 42 mls/hr UNSCH PRN IV SEE LABEL COMMENTS; Start 03/05/17 at 06:00 Sodium Chloride 250 ml @ 15 mls/hr ONCE ONCE IV Last administered on 06:45; Start 03/05/17 at 06:00; Stop 03/05/17 at 22:39 Furosemide (Lasix Inj) 20 mg ONCE ONCE IV Last administered on 03/05/17 08:49 ; Start 03/05/17 at 06:00; Stop 03/05/17 at 06:01; Status DC Acetaminophen/ Hydrocodone Bitart ([place] 5-325 Mg) 1 tab Q6H PRN PO PAIN 3-10 Last administered on 03/05/17 13:10; Start 03/05/17 at 08:30 Albuterol/ Ipratropium (Duoneb Neb) 1 ampule Q6HR NEB NEB Last administered on 03/05/17 11:26; Start 03/05/17 at 10:00 A/P Assessment and Plan 76-year-old female with history of coronary disease status post stent placement and balloon angioplasty, history of SD, history of left bundle branch block, COPD, type 2 diabetes, hypertension, hyperlipidemia who presented with shortness of breathing, chest pain, lower extremity edema Pseudoaneurysm -Complication due to cardiac catheterization. Status post repair of aneurysm. being management pseudoaneurysm. Coronary artery disease CAD and history of SD, Left Bundle branch block, status post PCI and stent placement -Cardiac Catheterization,s/p showed two high grade lesions in very large distal RCA, both stented with drug eluting stents -continue Brilinta 90 mg BID and daily baby aspirin. -Due to low blood pressure unable to start DEVON inhibitor and beta juan. -Management per spring encaser. Repeat echo in 90 days. Dilated cardiomyopathy EF of 20%. -See treatment as above. -will switch to oral lasix. Tobacco dependence -smoking cessation. COPD -asymptomatic. Fibromyalgia by history . DM II -continue sliding scale Hyperlipidemia -continue Home medicines. Hypokalemia -replaced as needed. DVT prophylaxis -On heparin drip. Yael Liang MD Mar 05, 2017 15:05
[2017-03-05] MEDS ORDERED: SODIUM CHLORIDE 0.9% FLUSH 10 ML FLUSH IV FLUSH PRN (15:45)
--- NOTE | 2017-03-05 15:54 | RADRPT ---
EXAM DATE/TIME: 03/05/2017 15:20 [facility] COMPARISON: CHEST SINGLE AP, February 28, 2017, 13:46. INDICATIONS : Post PICC line placement. MEDICAL HISTORY : Cardiovascular disease. Hypertension. Diabetes mellitus type 2. SURGICAL HISTORY : Appendectomy. Cholecystectomy.Hysterectomy. ENCOUNTER: Initial ACUITY: 1 day PAIN SCORE: 0/10 LOCATION: Bilateral chest FINDINGS: There is a PICC which enters from the right arm the catheter tip is in the superior vena cava. There are advanced COPD changes within the pulmonary parenchyma. The heart is mildly enlarged. The me diastinal contour is within normal limits. There are degenerative changes within the left shoulder. CONCLUSION: 1. PICC in good position. 2. COPD changes. Jai Moe MD on March 05, 2017 at 15:51 Board Certified Radiologist. This report was verified electronically.
[2017-03-05] MEDS: DOCUSATE CALCIUM 240 MG CAP PO SCH (20:43)
[2017-03-05] MEDS: PRAVASTATIN SOD 80 MG TAB PO SCH (20:43)
[2017-03-06] VITALS (9 sets, daily range): BP systolic 88–113; BP diastolic 46–59; PULSE 68–93; RESP 16–22; TEMP 98–99; O2SAT 92–99
[2017-03-06] MEDS: RESP: ALBUTEROL 2.5 MG/IPRATROPIUM 0.5 MG NEB (SCH) NEB ×4 (04:49→23:06)
[2017-03-06 05:14] LABS: HEMATOCRIT 25.4 % (35.0-46.0); MEAN CELL VOLUME 90.3 FL (80.0-100.0); MEAN CORPUSCULAR HEMOGLOBIN 30.2 PG (27.0-34.0); MEAN CORPUSCULAR HGB CONC 33.5 % (32.0-36.0); PLATELET COUNT 107 TH/MM3 (150-450); RED BLOOD COUNT 2.82 MIL/MM3 (4.00-5.30); RED CELL DISTRIBUTION WIDTH 13.6 % (11.6-17.2); REVIEW FLAG FINAL
[2017-03-06] MEDS: ACETAMINOPHEN 500 MG CPLT PO PRN ×2 (05:42→13:03)
--- NOTE | 2017-03-06 07:47 | PD.CARD.PN ---
Subjective Subjective Remarks Denies CP, dyspnea, dizziness, palpitations. Minimal right groin pain. Slept fairly well. Objective Medications Item Value Date Time Furosemide 40 mg 03/06/17 0900 (Lasix) DAILY/PO Norepinephrine 250 ml @ 7.5 mls/hr 03/05/17 0315 Bitartrate TITRATE PRN/IV 03/05/17 1613 Phenylephrine HCl 500 ml @ 30 mls/hr 03/04/17 2315 40 mg/Dextrose TITRATE PRN/IV 03/05/17 0054 Aspirin 81 mg 03/03/17 0900 (Aspirin Chew) DAILY/PO 03/05/17 0924 Pravastatin Sodium 80 mg 02/28/17 2100 (Pravachol) HS/PO 03/05/172042 Vital Signs / I&O Vital Signs Date Time Temp Pulse Resp B/P (MAP) Pulse Ox O2 Delivery O2 Flow Rate FiO2 03/06/17 04:00 98.2 79 21 113/54 (73) 97 03/06/17 04:00 79 03/06/17 00:00 78 03/06/17 00:00 98.2 68 22 102/53 (69) 96 03/05/17 21:04 98 Nasal Cannula 3.00 03/05/17 20:00 78 03/05/17 20:00 94 Nasal Cannula 2.00 03/05/17 20:00 98.3 78 19 108/56 (73) 94 03/05/17 16:13 89 86/52 03/05/17 15:22 98.1 84 16 87/47 (60) 95 109/70 (83) 03/05/17 15:00 84 03/05/17 12:00 97.9 93 15 102/59 (73) 94 120/64 (82) 03/05/17 12:00 93 03/05/17 11:26 94 Nasal Cannula 4.00 I/O 03/05/17 03/05/17 03/05/17 03/06/17 03/06/17 03/06/17 07:00 15:00 23:00 07:00 15:00 23:00 Intake Total 613 ml 489 ml 2579 ml 2448 ml Output Total 1093 ml 2570 ml 805 ml Balance -480 ml 489 ml 9 ml 1643 ml Intake Oral 980 ml 300 ml IV Total 62 ml 1249 ml 2148 ml Packed Cells 389 ml 350 ml FFP 501 ml Blood Product IV Normal Saline Flush 50 ml 100 ml Output Urine Total 1023 ml 2550 ml 800 ml Drainage Total 70 ml 20 ml 5 ml # Bowel Movements 0 Physical Exam GENERAL: Well developed, well nourished. No acute distress. HEENT: Jugular venous pressure is normal. CHEST: Lungs clear to auscultation anteriorly. CARDIAC: Regular rate and rhythm without S3, S4. I-II/ systolic murmur left lower sternal border. ABDOMEN: Soft, nontender, no hepatosplenomegaly. Bowel sounds present. EXTREMITIES: No pretibial edema. Laboratory Laboratory Tests Test 03/05/17 11:30 03/06/17 04:45 Hemoglobin 10.2 GM/DL 8.5 GM/DL Hematocrit 31.0 % 25.4 % White Blood Count 6.0 TH/MM3 Red Blood Count 2.82 MIL/MM3 Mean Corpuscular Volume 90.3 FL Mean Corpuscular Hemoglobin 30.2 PG Mean Corpuscular Hemoglobin Concent 33.5 % Red Cell Distribution Width 13.6 % Platelet Count 107 TH/MM3 Mean Platelet Volume 8.8 FL Assessment and Plan Problem List: (1) CAD (coronary artery disease) ICD Codes: I25.10 - Atherosclerotic heart disease of [place] coronary artery without angina pectoris Plan: Cardiac status stable overnight. No further angina s/p stent x 2 of distal RCA last week. Patient now 2 days s/p surgical repair of right femoral pseudoaneurysm. REC continue aspirin resume Brilinta when possible, consider local thrombin injection if bleeding persists (2) Dilated cardiomyopathy ICD Codes: I42.0 - Dilated cardiomyopathy Status: Chronic Plan: EF ~ 20%. Appears patient has component of non-ischemic cardiomyopathy as well. BP's intermittently too low still for beta juan, SERGIO-I therapy. REC continue oral furosemide repeat echo in about 90 days Code Status full code Discussed Condition With patient Problem Qualifiers (1) CAD (coronary artery disease): Qualified Codes: I25.110 - Atherosclerotic heart disease of [place] coronary artery with unstable angina pectoris Jair Maddox MD Mar 06, 2017 07:47
[2017-03-06] MEDS: INSULIN ASPART SUPPLEMENTAL SCALE SQ SCH ×4 (08:00→22:34)
[2017-03-06 08:10] LABS: BICARBONATE 32.3 MEQ/L (21.0-32.0); POTASSIUM 3.9 MEQ/L (3.5-5.1)
[2017-03-06] MEDS: ASPIRIN 81 MG CHEW TAB PO SCH (09:34)
[2017-03-06] MEDS: guaiFENesin E.R. 600 MG TAB PO SCH ×2 (09:34→20:23)
[2017-03-06] MEDS: FUROSEMIDE 40 MG TAB PO SCH (09:34)
[2017-03-06] MEDS: FAMOTIDINE 20 MG TAB PO SCH ×2 (09:35→20:23)
[2017-03-06] MEDS: SODIUM CHLORIDE 0.9% FLUSH 10 ML FLUSH IV FLUSH SCH ×3 (09:36→22:35)
--- NOTE | 2017-03-06 09:43 | PD.VS.PN ---
Subjective POD #: 2 Procedure(s): right femoral artery pseudoaneurysm repair. Subjective/Hospital Course Afebrile 76/F Pt in bed eating breakfast w/o complaints ARNEL drain intact to R LE (Sandy Ovalle) Objective Vitals/I&O Date Time Temp Pulse Resp B/P (MAP) Pulse Ox O2 Delivery O2 Flow Rate FiO2 03/06/17 07:00 99.0 70 21 106/50 (68) 94 102/56 (71) 03/06/17 07:00 94 Nasal Cannula 2.00 03/06/17 07:00 86 03/06/17 04:00 98.2 79 21 113/54 (73) 97 03/06/17 04:00 79 03/06/17 00:00 78 03/06/17 00:00 98.2 68 22 102/53 (69) 96 03/05/17 21:04 98 Nasal Cannula 3.00 03/05/17 20:00 78 03/05/17 20:00 94 Nasal Cannula 2.00 03/05/17 20:00 98.3 78 19 108/56 (73) 94 03/05/17 16:13 89 86/52 03/05/17 15:22 98.1 84 16 87/47 (60) 95 109/70 (83) 03/05/17 15:00 84 03/05/17 12:00 97.9 93 15 102/59 (73) 94 120/64 (82) 03/05/17 12:00 93 03/05/17 11:26 94 Nasal Cannula 4.00 03/06/17 03/06/17 03/06/17 07:00 15:00 23:00 Intake Total 2448 ml Output Total 805 ml Balance 1643 ml Exam: GENERAL: A&OX3,NAD,GCS15 SKIN: Warm and dry/ Pro[place]a wound vac to Right groin intact w/o hematoma/ ARNEL drain in place/ Ecchymosis with swelling noted to RIGHT upper thigh LE warm w/ motor intact R DP/PT with triphasic signals heard via Doppler R LE numbness per patient Laboratory Laboratory Tests Test 03/05/17 11:30 03/06/17 04:45 03/06/17 07:28 Hemoglobin 10.2 8.5 Hematocrit 31.0 25.4 White Blood Count 6.0 Red Blood Count 2.82 Mean Corpuscular Volume 90.3 Mean Corpuscular Hemoglobin 30.2 Mean Corpuscular Hemoglobin Concent 33.5 Red Cell Distribution Width 13.6 Platelet Count 107 Mean Platelet Volume 8.8 Blood Urea Nitrogen 11 Creatinine 0.50 Random Glucose 125 Calcium Level 7.9 Sodium Level 139 Potassium Level 3.9 Chloride Level 103 Carbon Dioxide Level 32.3 Anion Gap 4 Estimat Glomerular Filtration Rate 120 (Sandy Ovalle) Assessment and Plan Assessment: (1) Pseudoaneurysm of right femoral artery Plan POD 2- 76 y.o.f. with hx of cardiac catheterization with resultant right groin pseudoaneurysm. status post repair. Plan for aspirin at this point to allow for hemostasis. Plan PT/OOB to chair Apply hattie wrap to upper thigh if swelling present ARNEL drain to be removed in the next few days Sandy CLE[facility]E [facility] [phone] (Sandy Ovalle) Plan i agree with above a/p. Plan for mobilization today. Samir Medina DO, FACS (Samir Medina DO) Sandy Ovalle Mar 06, 2017 09:43 Samir Medina DO Mar 06, 2017 15:33
[2017-03-06] MEDS: ACETAMINOPHEN/HYDROcodone 325 MG/5 MG TAB PO PRN ×3 (10:38→23:30)
--- NOTE | 2017-03-06 12:54 | HHI.CCPN ---
Subjective Remarks/Hospital Course 03/05: 76 yo WF with PMH of COPD, hypertension, hyperlipidemia, diabetes mellitus , CAD s/p stent 1999 and angioplasty [address] [facility] 02/28 with CP and SOB. She had NSTEMI with troponin 0.71 and underwent cardiac cath 03/02 that demonstrated single vessel CAD, with ADALI x2 to PDA by Dr. Maddox. Ejection fraction is 20-25%. She subsequently developed ecchymoses of right thigh and lower extremity u/s showed pseudoaneurysm. She has undergone right femoral pseudoaneurysm repair by Dr. Medina. She received 900 crystalloid and EBL was 300. She was placed on phenylephrine which was running at 40 mcg/min. [facility] is consulted to assist with medical management. She is receiving [address] Medina. She denies CP or SOB. She had some sharp shooting pains in right leg that later resolved. Remainder of ROS negative. 03/06: Resting comfortably. On nasal cannula currently. Off Levophed since this morning. Denies any chest pain currently. Objective Vital Signs Date Time Temp Pulse Resp B/P (MAP) Pulse Ox O2 Delivery O2 Flow Rate FiO2 03/06/17 11:01 98.3 93 21 109/59 (76) 94 113/54 (73) 03/06/17 10:52 Nasal Cannula 2.00 Intake and Output 03/06/17 03/06/17 03/07/17 08:00 16:00 00:00 Intake Total 1548 ml Output Total 805 ml Balance 743 ml Result Diagram: 03/06/17 0445 03/06/17 0728 Imaging Last Impressions Chest X-Ray 03/05/17 0000 Signed Impressions: Service Date/Time: Sunday, March 05, 2017 15:20 - CONCLUSION: 1. PICC in good position. 2. COPD changes. Jai Moe MD Lower Extremity Ultrasound 03/04/17 0000 Signed Impressions: Service Date/Time: Saturday, March 04, 2017 16:15 - CONCLUSION: Right groin pseudoaneurysm. Prasanna Llanes MD Aorta w/Runoff CTA 03/04/17 0000 Signed Impressions: Service Date/Time: Saturday, March 04, 2017 18:37 - CONCLUSION: 1. Oderate 2 large pseudoaneurysm again noted. 2. Diffuse atherosclerotic change with no aneurysm or high-grade stenosis identified. There are small ulcerative plaques in the abdominal aorta. 3. The distal anterior tibial arteries could not be visualized on either side and this is likely technical in nature. 4. Nonobstructing left renal calculus. Prasanna Llanes MD CT Angiography 02/28/17 1326 Signed Impressions: Service Date/Time: Tuesday, February 28, 2017 15:07 - CONCLUSION: 1. No PE is identified. 2. Small bilateral pleural effusions with a smooth septal thickening in the lower lobes. These findings suggest mild pulmonary edema. Given the enlarged cardiac silhouette, a cardiogenic cause should be considered. 3. Nonspecific 8mm right adrenal gland nodule. It does not meet criteria for an adenoma on this examination. Duc Bryant MD Objective Remarks Rate of 85, sinus rhythm with PACs on the monitor. Blood pressure 104/49 with mean arterial pressure of 67, sats 99% on simple mask GENERAL: female who is laying down in CVICU bed, alert and communicative. SKIN: Warm and dry. HEAD: Atraumatic. Normocephalic. EYES: Pupils equal and round, 3mm and reactive bilaterally. No scleral icterus. No injection or drainage. ENT: No nasal bleeding or discharge. Mucous membranes pink and moist. NECK: Trachea midline. . CARDIOVASCULAR: regular. No murmurs rubs or gallops. Sinus rhythm with PACS on the monitor with rate 80s. RESPIRATORY: Breathing comfortably on simple mask with no accessory muscle use. Clear to auscultation bilaterally without wheezes Rales or rhonchi appreciated. GASTROINTESTINAL: Abdomen soft, non-tender, nondistended. Bowel sounds present. : Madden in place with light yellow urine output. MUSCULOSKELETAL: Extremities without clubbing, cyanosis, or edema.There is negative pressure dressing in place right groin. Devon-wrap is in place over thigh which is ecchymotic but soft without hematoma. ARNEL has bloody output 75 over last hour and 45 minutes. 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 NEUROLOGICAL: Awake and alert. Motor grossly within normal limits. Normal speech, oriented x3. A/P Assessment and Plan NEURO: Peripheral neuropathy Acetaminophen/Lortab as needed for pain. Morphine as needed for breakthrough pain RESP: COPD Tobacco abuse Continue DuoNeb every 6 hours CV: NSTEMI s/p ADALI x2 to PDA by Dr. Maddox 03/02. Coronary artery disease Left bundle branch block Chronic systolic heart failure, likely combination of ischemic and nonischemic/ dilated cardiomyopathy. R femoral pseudoaneurysm status post repair 03/[address] Red vargas Previously on aspirin and Brillinta which was held for pseudoaneurysm repair. She is hypotensive post procedure. EBL was 300. Bedside echo with EF 20%, with adequate RV filling, does not appear volume depleted. Was on escalating dose of phenylephrine.Transitioned to levophed given the poor EF. Off Levophed since 8 AM on 03/06 EKG with LBB and no acute changes, no CP, troponin stable so do not think acute ischemia is etiology of the hypotension. Echo 03/01/1717 grade 2 diastolic dysfunction. Severely dilated LV with LVH, RV and bi-atrial dilation. Neurovascular checks, monitoring ARNEL output WAs oozing in OR. Received protamine 40 mg IV and FFP 2 units. Will need to return to antiplatelet therapy due to risk of stent thrombosis, timing to be determined by clinical course and collaboration with cardiology/[facility]. Aspirin resume. Brillinta on hold per Vascular surgery Continue pravastatin 80 mg by mouth daily at bedtime GI: Advance PO diet. FEN/RENAL: Madden in place. Monitor intake and output. Monitor electrolytes Replace electrolytes as indicated per ICU likely replacement protocol. ID: Vancomycin. Procedure. Monitor for evidence infection. HEME: Acute blood loss anemia Intraoperative EBL for pseudoaneurysm repair 300. Transfuse 2 units FFP 03/05 . Repeat hemoglobin 8.4 at 03 100. Was 11.6 preoperative. Her hemoglobin was 16.9 on 12/05 so this is in part dilutional but she remains hypotensive so transfused 1 unit PRBC. ENDO: Diabetes mellitus Low dose insulin sliding scale bedside glucose before meals/at bedtime PROPH: Famotidine 20 mill grams by mouth twice a day for stress ulcer prophylaxis. Avoid pharmacologic DVT prophylaxis due to concern for hemorrhage. Avoid SCDs due to peripheral vascular disease ACCESS: PICC placed 03/05 Alex Villegas MD Mar 06, 2017 12:54
--- NOTE | 2017-03-06 13:57 | HHI.PR ---
Subjective Remarks f/u for pseudoaneurysm Patient has no complaints. Denied any pain. She stated that she sitting up for 3 hours and did well. She remains afebrile. Objective Vitals Vital Signs Date Time Temp Pulse Resp B/P (MAP) Pulse Ox O2 Delivery O2 Flow Rate FiO2 03/06/17 11:01 98.3 93 21 109/59 (76) 94 113/54 (73) 03/06/17 11:01 93 03/06/17 10:52 93 Nasal Cannula 2.00 03/06/17 07:00 99.0 70 21 106/50 (68) 94 102/56 (71) 03/06/17 07:00 94 Nasal Cannula 2.00 03/06/17 07:00 86 03/06/17 04:00 98.2 79 21 113/54 (73) 97 03/06/17 04:00 79 03/06/17 00:00 78 03/06/17 00:00 98.2 68 22 102/53 (69) 96 03/05/17 21:04 98 Nasal Cannula 3.00 03/05/17 20:00 78 03/05/17 20:00 94 Nasal Cannula 2.00 03/05/17 20:00 98.3 78 19 108/56 (73) 94 03/05/17 16:13 89 86/52 03/05/17 15:22 98.1 84 16 87/47 (60) 95 109/70 (83) 03/05/17 15:00 84 I/O 03/05/17 03/05/17 03/05/17 03/06/17 03/06/17 03/06/17 07:00 15:00 23:00 07:00 15:00 23:00 Intake Total 613 ml 489 ml 2579 ml 2448 ml Output Total 1093 ml 2570 ml 805 ml Balance -480 ml 489 ml 9 ml 1643 ml Intake Oral 980 ml 300 ml IV Total 62 ml 1249 ml 2148 ml Packed Cells 389 ml 350 ml FFP 501 ml Blood Product IV Normal Saline Flush 50 ml 100 ml Output Urine Total 1023 ml 2550 ml 800 ml Drainage Total 70 ml 20 ml 5 ml # Bowel Movements 0 Result Diagram: 03/06/17 0445 03/06/17 0728 Objective Remarks GENERAL: in NAD SKIN: Right groin area with ecchymosis and ARNEL drain in place and bloody. HEAD: Normocephalic. EYES: No scleral icterus. No injection or drainage. NECK: Supple, trachea midline. No JVD or lymphadenopathy. CARDIOVASCULAR: Regular rate and rhythm without murmurs, gallops, or rubs. Trace edema in the lower extremity. RESPIRATORY: Breath sounds equal bilaterally. No accessory muscle use. GASTROINTESTINAL: Abdomen soft, non-tender, nondistended. Medications and IVs Current Medications Sodium Chloride (NS Flush) 2 ml UNSCH PRN IVF FLUSH AFTER USING IV ACCESS; Start 02/28/17 at 13:30; Stop 03/03/17 at 13:27; Status DC Albuterol/ Ipratropium (Duoneb Neb) 1 ampule Q15M INH Last administered on 02/28 13:30; Start 02/28/17 at 13:30; Stop 02/28/17 at 13:46; Status DC Methylprednisolone Sodium Succinate (SoluMEDROL INJ) 125 mg ONCE ONCE IV PUSH Last administered on 02/28/17 14:15; Start 02/28/17 at 14:15; Stop 02/28/17 at 14:16; Status DC Aspirin (Aspirin Chew) 324 mg ONCE ONCE PO Last administered on 02/28/17 14: 43; Start 02/28/17 at 14:45; Stop 02/28/17 at 14:46; Status DC Furosemide (Lasix Inj) 20 mg ONCE ONCE IV PUSH Last administered on 02/28/17 14:55; Start 02/28/17 at 14:45; Stop 02/28/17 at 14:46; Status DC Iohexol (Omnipaque 350 Inj) 74 ml STK-MED ONCE IVCONTRAST Last administered on 02/28/17 12:53; Start 02/28/17 at 12:53; Stop 02/28/17 at 15:11; Status DC Heparin Sodium (Porcine) (Heparin Inj) 4,000 units ONCE ONCE IV Last administered on 02/28/17 18:11; Start 02/28/17 at 17:30; Stop 02/28/17 at 17:31 ; Status DC Heparin Sodium (Porcine) (Heparin Inj) 5,000 units UNSCH PRN IV APTT LESS THAN 25; Start 02/28/17 at 23:30; Stop 03/02/17 at 09:48; Status DC Heparin Sodium (Porcine) (Heparin Inj) 2,500 units UNSCH PRN IV APTT 25 TO 39 Last administered on 03/01/17 22:09; Start 02/28/17 at 23:30; Stop 03/02/17 at 09:48; Status DC Heparin Sodium/ Dextrose 250 ml @ 9.36 mls/hr TITRATE PRN IV Coagulation management Last administered on 03/01/17 18:34; Start 02/28/17 at 17:30; Stop 03/02/17 at 09:48; Status DC Ramipril (Altace) 10 mg DAILY PO Last administered on 03/02/17 13:01; Start at 09:00; Status Future Hold Pravastatin Sodium (Pravachol) 80 mg HS PO Last administered on 03/05/17 20:43 ; Start 02/28/17 at 21:00 Sodium Chloride (NS Flush) 2 ml BID IV FLUSH Last administered on 03/06/17 09: 36; Start 02/28/17 at 21:00 Sodium Chloride (NS Flush) 2 ml UNSCH PRN IV FLUSH FLUSH AFTER USING IV ACCESS ; Start 02/28/17 at 18:15; Stop 03/03/17 at 13:27; Status DC Aspirin (Aspirin Chew) 162 mg DAILY PO Last administered on 03/01/17 09:30; Start 03/01/17 at 09:00; Stop 03/02/17 at 08:54; Status DC Metoprolol Tartrate (Lopressor) 25 mg BID PO Last administered on 03/01/17 22: 10; Start 02/28/17 at 21:00; Stop 03/02/17 at 08:48; Status DC Nitroglycerin (Nitroglycerin 2% Oint) 1 inch Q6HR TOP Last administered on 03/02 05:53; Start 02/28/17 at 19:30; Stop 03/02/17 at 08:54; Status DC Nitroglycerin (Nitrostat Sl) 0.4 mg Q5M PRN SL ANGINA; Start 02/28/17 at 18:15 Acetaminophen (Tylenol) 500 mg Q4H PRN PO PAIN 1-2 Last administered on 13:03; Start 02/28/17 at 18:15 Morphine Sulfate (Morphine Inj) 2 mg Q5M PRN IV PUSH breakthrough pain 6-10 Last administered on 03/05/17 00:45; Start 02/28/17 at 18:15 Famotidine (Pepcid) 20 mg BID PO Last administered on 03/06/17 09:35; Start at 21:00 Dextrose (D50w (Vial) Inj) 50 ml UNSCH PRN IV PUSH HYPOGLYCEMIA-SEE COMMENTS; Start 02/28/17 at 18:15 Glucagon (Glucagon Inj) 1 mg UNSCH PRN OTHER HYPOGLYCEMIA-SEE COMMENTS; Start 02/28/17 at 18:15 Insulin Aspart (NovoLOG SUPPLEMENTAL SCALE) 1 ACHS SLIDING SCALE SQ Last administered on 03/05/17 20:41; Start 02/28/17 at 21:00 Furosemide (Lasix Inj) 20 mg DAILY IV PUSH Last administered on 03/01/17 09:29 ; Start 03/01/17 at 09:00; Stop 03/02/17 at 08:54; Status DC Albuterol/ Ipratropium (Duoneb Neb) 1 ampule Q4HR NEB NEB Last administered on 03/05/17 05:25; Start 03/01/17 at 16:00; Stop 03/05/17 at 08:41; Status DC Guaifenesin (Mucinex Er) 600 mg BID PO Last administered on 03/06/17 09:34; Start 03/01/17 at 21:00 Sodium Chloride 1,000 ml @ 100 mls/hr Q10H IV Last administered on 03/03/17 08:43; Start 03/01/17 at 17:23; Stop 03/03/17 at 11:26; Status DC Aspirin (Aspirin) 325 mg INSPECTOR OF DREDGING PO ; Start 03/01/17 at 17:30; Stop 03/05/17 at 17:29; Status DC Diphenhydramine HCl (Benadryl) 50 mg INSPECTOR OF DREDGING PO Last administered on 05:54; Start 03/01/17 at 17:30; Stop 03/05/17 at 17:29; Status DC Diazepam (Valium) 10 mg INSPECTOR OF DREDGING PO ; Start 03/01/17 at 17:30; Stop 03/05/17 at 17:29; Status DC Midazolam HCl (Versed Inj) 2 mg STK-MED ONCE .ROUTE Last administered on 07:35; Start 03/02/17 at 07:24; Stop 03/02/17 at 07:25; Status DC Verapamil HCl (Isoptin Inj) 5 mg STK-MED ONCE .ROUTE ; Start 03/02/17 at 07:31; Stop 03/02/17 at 07:32; Status DC Heparin Sodium (Porcine) (Heparin Inj) 10,000 units STK-MED ONCE .ROUTE Last administered on 03/02/17 07:39; Start 03/02/17 at 07:31; Stop 03/02/17 at 07:32 ; Status DC Tirofiban/Sodium Chloride 250 ml @ As Directed STK-MED ONCE IV Last administered on 03/02/17 07:55; Start 03/02/17 at 07:53; Stop 03/02/17 at 07:54 ; Status DC Ticagrelor (Brilinta) 180 mg STK-MED ONCE PO Last administered on 03/02/17 08: 36; Start 03/02/17 at 08:31; Stop 03/02/17 at 08:32; Status DC Metoprolol Tartrate (Lopressor) 50 mg BID PO Last administered on 03/02/17 20: 15; Start 03/02/17 at 09:00; Status Future Hold Sodium Chloride 1,000 ml @ 100 mls/hr Q10H IV ; Start 03/02/17 at 08:46; Stop 03/02/17 at 21:04; Status DC IV Flush (NS Flush) 2 ml UNSCH PRN IVF FLUSH AFTER USING IV ACCESS; Start 03/02 at 09:00 Temazepam (Restoril) 15 mg HS PRN PO SLEEP; Start 03/02/17 at 21:00 Aspirin (Aspirin Chew) 81 mg DAILY PO Last administered on 03/06/17 09:34; Start 03/03/17 at 09:00 Ticagrelor (Brilinta) 90 mg BID PO Last administered on 03/04/17 09:26; Start 03/03/17 at 09:00; Status Future Hold Tirofiban/Sodium Chloride 250 ml @ 13.914 mls/ hr [id number] IV ; Start 03/02/17 at 08:46; Stop 03/02/17 at 20:52; Status DC Miscellaneous Information 1 ONCE ONCE XX ; Start 03/02/17 at 09:00; Stop at 09:48; Status DC Furosemide (Lasix) 40 mg DAILY PO Last administered on 03/02/17 13:01; Start 03/02/17 at 10:00; Stop 03/03/17 at 11:26; Status DC Iohexol (OMNIPAQUE 350 INJ (Technology Recruiter)) 100 ml STK-MED ONCE OTHER Last administered on 03/02/17 07:30; Start 03/02/17 at 07:30; Stop 03/02/17 at 09:53 ; Status DC Iohexol (OMNIPAQUE 350 INJ (Technology Recruiter)) 50 ml STK-MED ONCE OTHER ; Start at 07:30; Stop 03/02/17 at 09:53; Status DC Midazolam HCl (Versed Inj) 2 mg ONCE ONCE IV ; Start 03/02/17 at 07:35; Stop at 11:11; Status DC Heparin Sodium (Porcine) (Heparin Inj) 5,000 units ONCE ONCE IV ; Start at 08:00; Stop 03/02/17 at 11:11; Status DC Ticagrelor (Brilinta) 180 mg ONCE ONCE PO ; Start 03/02/17 at 08:00; Stop 03/02 at 11:11; Status DC Atropine Sulfate (Atropine Inj) 1 mg STK-MED ONCE .ROUTE ; Start 03/02/17 at 11: 10; Stop 03/02/17 at 11:11; Status DC Furosemide (Lasix Inj) 40 mg DAILY IV PUSH Last administered on 03/05/17 08:50 ; Start 03/03/17 at 11:15; Stop 03/05/17 at 15:04; Status DC Potassium Chloride (KCl) 40 meq ONCE ONCE PO Last administered on 03/03/17 11 :49; Start 03/03/17 at 11:15; Stop 03/03/17 at 11:40; Status DC Potassium Chloride (KCl) 40 meq ONCE ONCE PO Last administered on 03/03/17 16 :23; Start 03/03/17 at 16:00; Stop 03/03/17 at 16:01; Status DC Methylprednisolone Sodium Succinate (SoluMEDROL INJ) 125 mg ONCE ONCE IV PUSH Last administered on 03/03/17 13:31; Start 03/03/17 at 13:30; Stop 03/03/17 at 13:31; Status DC Iohexol (Omnipaque 350 Inj) 100 ml STK-MED ONCE IVCONTRAST ; Start 03/04/17 at 18:44; Stop 03/04/17 at 18:45; Status DC Etomidate (Amidate Inj) 20 mg STK-MED ONCE .ROUTE ; Start 03/04/17 at 19:21; Stop 03/04/17 at 19:22; Status DC Heparin Sodium (Porcine) (Heparin Inj) 20,000 units STK-MED ONCE .ROUTE ; Start 03/04/17 at 19:39; Stop 03/04/17 at 19:40; Status DC Protamine Sulfate (Protamine Sulfate Inj) 50 mg STK-MED ONCE .ROUTE ; Start at 19:49; Stop 03/04/17 at 19:50; Status DC Heparin Sodium (Porcine) (Heparin Inj) 10,000 units STK-MED ONCE .ROUTE ; Start 03/04/17 at 19:49; Stop 03/04/17 at 19:50; Status DC Vancomycin HCl (Vancomycin Inj) 1,000 mg STK-MED ONCE .ROUTE Last administered on 03/04/17 08:38; Start 03/04/17 at 19:49; Stop 03/04/17 at 19:50; Status DC Thrombin (Thrombin Top [place]) 20,000 units STK-MED ONCE .ROUTE ; Start 03/04/17 at 19:49; Stop 03/04/17 at 19:50; Status DC Heparin Sodium/ Sodium Chloride 1,000 ml @ As Directed STK-MED ONCE .ROUTE Last administered on 03/04/17 19:49; Start 03/04/17 at 19:49; Stop 03/04/17 at 19:50; Status DC Bupivacaine HCl (Marcaine Pf 0.5% Inj) 30 ml STK-MED ONCE .ROUTE Last administered on 03/04/17 19:49; Start 03/04/17 at 19:49; Stop 03/04/17 at 19:50 ; Status DC Vasopressin (Pitressin Inj) 20 units STK-MED ONCE .ROUTE ; Start 03/04/17 at 19: 53; Stop 03/04/17 at 19:54; Status DC Sodium Chloride 1,000 ml @ 100 mls/hr Q10H IV Last administered on 03/05/17 16:13; Start 03/04/17 at 21:30; Stop 03/05/17 at 21:29; Status DC Ondansetron HCl (Zofran Inj) 4 mg Q6H PRN IV PUSH SEVERE NAUSEA AND/OR VOMITING ; Start 03/04/17 at 21:30 Magnesium Hydroxide (Milk Of Magnesia Liq) 30 ml DAILY PRN PO CONSTIPATION; Start 03/04/17 at 21:30 Docusate Calcium (Surfak) 240 mg HS PO Last administered on 03/05/17 20:43; Start 03/05/17 at 21:00 Vancomycin HCl 1000 mg/Sodium Chloride 250 ml @ 250 mls/hr Q12H IV Last administered on 03/05/17 19:48; Start 03/05/17 at 08:00; Stop 03/05/17 at 20:59 ; Status DC Miscellaneous Information (Post-op Orders (for Pharmacy)) STAT ONCE OTHER ; Start 03/04/17 at 21:30; Stop 03/04/17 at 21:40; Status DC Phenylephrine HCl 40 mg/Dextrose 500 ml @ 30 mls/hr TITRATE PRN IV Blood pressure management Last administered on 03/05/17 00:54; Start 03/04/17 at 23: 15 Terbutaline Sulfate (Brethine Inj) 1 mg UNSCH PRN SQ For Extravasation; Start 03/04/17 at 23:15; Stop 03/05/17 at 06:03; Status DC Norepinephrine Bitartrate 250 ml @ 7.5 mls/hr TITRATE PRN IV Blood pressure management Last administered on 03/05/17 16:13; Start 03/05/17 at 03:15 Terbutaline Sulfate (Brethine Inj) 1 mg UNSCH PRN SQ For Extravasation; Start 03/05/17 at 03:15 Potassium Chloride 100 ml @ 50 mls/hr Q2H PRN IV For Potassium 2.8 - 3.2 mEq/ L Last administered on 03/05/17 10:20; Start 03/05/17 at 06:00 Potassium Chloride 100 ml @ 50 mls/hr Q2H PRN IV For Potassium 2.8 - 3.2 mEq/L ; Start 03/05/17 at 06:00 Potassium Bicarb/ Potassium Chloride (K-Lyte Cl Eff) 50 meq UNSCH PRN PO For Potassium 3.3 - 3.5 mEq/L; Start 03/05/17 at 06:00 Potassium Chloride 100 ml @ 25 mls/hr UNSCH PRN IV For Potassium 3.3 - 3.5 mEq /L; Start 03/05/17 at 06:00 Potassium Chloride 100 ml @ 50 mls/hr Q2H PRN IV For Potassium 3.3 - 3.5 mEq/L ; Start 03/05/17 at 06:00 Magnesium Sulfate 4 gm/Sodium Chloride 100 ml @ 50 mls/hr UNSCH PRN IV For Magnesium 0.9 - 1.1 mg/dL; Start 03/05/17 at 06:00 Magnesium Oxide (Mag-Ox) 800 mg UNSCH PRN PO For Magnesium 1.2 - 1.6 mg/dL; Start 03/05/17 at 06:00 Magnesium Sulfate 2 gm/Sodium Chloride 100 ml @ 50 mls/hr UNSCH PRN IV For Magnesium 1.2 - 1.6 mg/dL; Start 03/05/17 at 06:00 Potassium Phosphate (K-Phos) 2,000 mg Q4H PRN PO For Phosphorus < 2.5 mg/dL; Start 03/05/17 at 06:00 Sodium Phosphate 30 mmol/Sodium Chloride 250 ml @ 42 mls/hr UNSCH PRN IV For Phosphorus < 2.5 mg/dL; Start 03/05/17 at 06:00 Potassium Phosphate (K-Phos) 2,000 mg UNSCH PRN PO/TUBE SEE LABEL COMMENTS; Start 03/05/17 at 06:00 Potassium Phosphate 30 mmol/ Sodium Chloride 260 ml @ 42 mls/hr UNSCH PRN IV SEE LABEL COMMENTS; Start 03/05/17 at 06:00 Sodium Chloride 250 ml @ 15 mls/hr ONCE ONCE IV Last administered on 06:45; Start 03/05/17 at 06:00; Stop 03/05/17 at 22:39; Status DC Furosemide (Lasix Inj) 20 mg ONCE ONCE IV Last administered on 03/05/17 08:49 ; Start 03/05/17 at 06:00; Stop 03/05/17 at 06:01; Status DC Acetaminophen/ Hydrocodone Bitart ([place]raham 5-325 Mg) 1 tab Q6H PRN PO PAIN 3-10 Last administered on 03/06/17 10:38; Start 03/05/17 at 08:30 Albuterol/ Ipratropium (Duoneb Neb) 1 ampule Q6HR NEB NEB Last administered on 03/06/17 10:50; Start 03/05/17 at 10:00 Furosemide (Lasix) 40 mg DAILY PO Last administered on 03/06/17 09:34; Start 03/06/17 at 09:00 Sodium Chloride (NS Flush) See Protocol DAILY IV FLUSH Last administered on 09:36; Start 03/06/17 at 09:00 Sodium Chloride (NS Flush) See Protocol UNSCH PRN IV FLUSH SEE PROTOCOL TABLE; Start 03/05/17 at 15:45 Heparin Sodium (Porcine) (Heparin Central Flush) See Protocol DAILY IV FLUSH Last administered on 03/06/17 09:35; Start 03/06/17 at 09:00 Heparin Sodium (Porcine) (Heparin Central Flush) See Protocol UNSCH PRN IV FLUSH SEE PROTOCOL TABLE; Start 03/05/17 at 15:45 Sodium Chloride (NS Flush) UNSCH PRN IV FLUSH SEE PROTOCOL TABLE; Start at 15:45 A/P Assessment and Plan 76-year-old female with history of coronary disease status post stent placement and balloon angioplasty, history of NH, history of left bundle branch block, COPD, type 2 diabetes, hypertension, hyperlipidemia who presented with shortness of breathing, chest pain, lower extremity edema Pseudoaneurysm -Complication due to cardiac catheterization. Status post repair of aneurysm. 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 -Per vascular surgeon ARNEL drain to be remain a few more days. -Recommend out of bed. Coronary artery disease CAD and history of NH, Left Bundle branch block, status post PCI and stent placement -Cardiac Catheterization,s/p showed two high grade lesions in very large distal RCA, both stented with drug eluting stents -continue Brilinta 90 mg BID and daily baby aspirin. -Due to low blood pressure unable to start SERGIO inhibitor and beta juan. -Management per engineering document control clerk. Repeat echo in 90 days. Anemia -No signs of active bleeding. -Secondary to pseudo-aneurysm. -Continue to monitor hemoglobin. Dilated cardiomyopathy EF of 20%. -See treatment as above. -On oral Lasix. Tobacco dependence -smoking cessation. COPD -asymptomatic. Fibromyalgia by history . DM II -continue sliding scale Hyperlipidemia -continue Home medicines. Hypokalemia -replaced as needed. Yael Liang MD Mar 06, 2017 13:57
[2017-03-06] MEDS: PRAVASTATIN SOD 80 MG TAB PO SCH (20:23)
[2017-03-06] MEDS: DOCUSATE CALCIUM 240 MG CAP PO SCH (20:23)
[2017-03-07] VITALS (9 sets, daily range): BP systolic 86–100; BP diastolic 47–54; PULSE 72–98; RESP 16–24; TEMP 97.5–99; O2SAT 91–97
[2017-03-07] MEDS: RESP: ALBUTEROL 2.5 MG/IPRATROPIUM 0.5 MG NEB (SCH) NEB ×4 (04:18→22:08)
[2017-03-07 04:57] LABS: HEMATOCRIT 24.5 % (35.0-46.0); MEAN CELL VOLUME 90.4 FL (80.0-100.0); MEAN CORPUSCULAR HEMOGLOBIN 30.4 PG (27.0-34.0); MEAN CORPUSCULAR HGB CONC 33.6 % (32.0-36.0); PLATELET COUNT 114 TH/MM3 (150-450); RED BLOOD COUNT 2.71 MIL/MM3 (4.00-5.30); RED CELL DISTRIBUTION WIDTH 13.1 % (11.6-17.2); REVIEW FLAG FINAL; WHITE BLOOD COUNT 4.6 TH/MM3 (4.0-11.0)
[2017-03-07 05:24] LABS: BICARBONATE 35.2 MEQ/L (21.0-32.0); POTASSIUM 3.8 MEQ/L (3.5-5.1)
--- NOTE | 2017-03-07 07:56 | PD.CARD.PN ---
Subjective Subjective Remarks Denies CP, dyspnea, dizziness, palpitations, groin pain. Slept well. Objective Medications Item Value Date Time Furosemide 40 mg 03/06/17 0900 (Lasix) DAILY/PO 03/06/17 0934 Norepinephrine 250 ml @ 7.5 mls/hr 03/05/17 0315 Bitartrate TITRATE PRN/IV 03/05/17 1613 Phenylephrine HCl 500 ml @ 30 mls/hr 03/04/17 2315 40 mg/Dextrose TITRATE PRN/IV 03/05/17 0054 Aspirin 81 mg 03/03/17 0900 (Aspirin Chew) DAILY/PO 03/06/17 0934 Pravastatin Sodium 80 mg 02/28/17 2100 (Pravachol) HS/PO 03/06/172022 Vital Signs / I&O Vital Signs Date Time Temp Pulse Resp B/P (MAP) Pulse Ox O2 Delivery O2 Flow Rate FiO2 03/07/17 03:00 72 03/07/17 03:00 99.0 72 19 90/47 (61) 95 03/07/17 00:30 18 03/06/17 23:06 92 Nasal Cannula 4.00 03/06/17 23:00 98.9 86 20 92/51 (65) 94 Arterial Line 03/06/17 23:00 84 03/06/17 19:00 98.3 86 19 88/46 (60) 93 Arterial Line 03/06/17 19:00 86 03/06/17 19:00 93 Nasal Cannula 4.00 03/06/17 15:00 98.0 80 16 101/58 (72) 99 103/50 (67) 03/06/17 15:00 80 03/06/17 11:01 98.3 93 21 109/59 (76) 94 113/54 (73) 03/06/17 11:01 93 03/06/17 10:52 93 Nasal Cannula 2.00 I/O 03/06/17 03/06/17 03/06/17 03/07/17 03/07/17 03/07/17 07:00 15:00 23:00 07:00 15:00 23:00 Intake Total 2448 ml 935 ml 720 ml Output Total 805 ml 1760 ml 653 ml Balance 1643 ml -825 ml 67 ml Intake Oral 300 ml 900 ml 720 ml IV Total 2148 ml 35 ml Output Urine Total 800 ml 1750 ml 650 ml Drainage Total 5 ml 10 ml 3 ml # Bowel Movements 0 0 0 Physical Exam GENERAL: Well developed, well nourished. No acute distress. HEENT: Jugular venous pressure is normal. CHEST: Lungs clear to auscultation anteriorly. CARDIAC: Regular rate and rhythm without S3, S4. I-II/ systolic murmur left lower sternal border. ABDOMEN: Soft, nontender, no hepatosplenomegaly. Bowel sounds present. EXTREMITIES: No pretibial edema. Laboratory Laboratory Tests Test 03/07/17 04:30 White Blood Count 4.6 TH/MM3 Red Blood Count 2.71 MIL/MM3 Hemoglobin 8.2 GM/DL Hematocrit 24.5 % Mean Corpuscular Volume 90.4 FL Mean Corpuscular Hemoglobin 30.4 PG Mean Corpuscular Hemoglobin Concent 33.6 % Red Cell Distribution Width 13.1 % Platelet Count 114 TH/MM3 Mean Platelet Volume 8.6 FL Blood Urea Nitrogen 14 MG/DL Creatinine 0.53 MG/DL Random Glucose 105 MG/DL Calcium Level 8.4 MG/DL Sodium Level 138 MEQ/L Potassium Level 3.8 MEQ/L Chloride Level 98 MEQ/L Carbon Dioxide Level 35.2 MEQ/L Anion Gap 5 MEQ/L Estimat Glomerular Filtration Rate 112 ML/MIN Assessment and Plan Problem List: (1) CAD (coronary artery disease) ICD Codes: I25.10 - Atherosclerotic heart disease of [place] coronary artery without angina pectoris Plan: Cardiac status stable overnight. No further angina s/p stent x 2 of distal RCA last week. Patient now 3 days s/p surgical repair of right femoral pseudoaneurysm. REC continue aspirin resume Brilinta when possible, consider local thrombin injection if bleeding persists; high risk of ND, if either of the 2 stents develop subacute thrombosis will f/u periodically (2) Dilated cardiomyopathy ICD Codes: I42.0 - Dilated cardiomyopathy Status: Chronic Plan: EF ~ 20%. Compensated. No CHF. Appears patient has component of non- ischemic cardiomyopathy as well. BP's too low still for beta juan, SERGIO-I therapy. REC continue oral furosemide repeat echo in about 90 days resume beta juan, SERGIO-I when BP's more stable Code Status full code Discussed Condition With patient Problem Qualifiers (1) CAD (coronary artery disease): Qualified Codes: I25.110 - Atherosclerotic heart disease of [place] coronary artery with unstable angina pectoris Jair Maddox MD Mar 07, 2017 07:56
[2017-03-07] MEDS: INSULIN ASPART SUPPLEMENTAL SCALE SQ SCH ×4 (08:00→21:00)
[2017-03-07] MEDS: SODIUM CHLORIDE 0.9% FLUSH 10 ML FLUSH IV FLUSH SCH ×4 (09:00→21:30)
[2017-03-07] MEDS: guaiFENesin E.R. 600 MG TAB PO SCH ×2 (09:10→21:28)
[2017-03-07] MEDS: FAMOTIDINE 20 MG TAB PO SCH ×2 (09:10→21:28)
[2017-03-07] MEDS: FUROSEMIDE 40 MG TAB PO SCH (09:11)
[2017-03-07] MEDS: ASPIRIN 81 MG CHEW TAB PO SCH (09:11)
--- NOTE | 2017-03-07 10:00 | PD.VS.PN ---
Subjective POD #: 3 Procedure(s): right femoral artery pseudoaneurysm repair. Subjective/Hospital Course Afebrile 76/F Pt in bed eating breakfast w/o complaints ARNEL drain intact to R LE BLE warm w/ motor intact (Sandy Ovalle) Objective Vitals/I&O Date Time Temp Pulse Resp B/P (MAP) Pulse Ox O2 Delivery O2 Flow Rate FiO2 03/07/17 09:22 93 Nasal Cannula 4.00 03/07/17 07:00 80 03/07/17 07:00 98.6 89 17 100/54 (69) 94 03/07/17 07:00 94 Nasal Cannula 4.00 03/07/17 03:00 72 03/07/17 03:00 99.0 72 19 90/47 (61) 95 03/07/17 00:30 18 03/06/17 23:06 92 Nasal Cannula 4.00 03/06/17 23:00 98.9 86 20 92/51 (65) 94 Arterial Line 03/06/17 23:00 84 03/06/17 19:00 98.3 86 19 88/46 (60) 93 Arterial Line 03/06/17 19:00 86 03/06/17 19:00 93 Nasal Cannula 4.00 03/06/17 15:00 98.0 80 16 101/58 (72) 99 103/50 (67) 03/06/17 15:00 80 03/06/17 11:01 98.3 93 21 109/59 (76) 94 113/54 (73) 03/06/17 11:01 93 03/06/17 10:52 93 Nasal Cannula 2.00 03/07/17 03/07/17 03/07/17 07:00 15:00 23:00 Intake Total 720 ml Output Total 653 ml Balance 67 ml Exam: Palpable R DP Palpable L DP LE warm with motor intact Swelling with ecchymosis present to R upper thigh region Provena wound vac intact to R groin w/o hematoma Laboratory Laboratory Tests Test 03/07/17 04:30 White Blood Count 4.6 Red Blood Count 2.71 Hemoglobin 8.2 Hematocrit 24.5 Mean Corpuscular Volume 90.4 Mean Corpuscular Hemoglobin 30.4 Mean Corpuscular Hemoglobin Concent 33.6 Red Cell Distribution Width 13.1 Platelet Count 114 Mean Platelet Volume 8.6 Blood Urea Nitrogen 14 Creatinine 0.53 Random Glucose 105 Calcium Level 8.4 Sodium Level 138 Potassium Level 3.8 Chloride Level 98 Carbon Dioxide Level 35.2 Anion Gap 5 Estimat Glomerular Filtration Rate 112 (Sandy Ovalle) Assessment and Plan Assessment: (1) Pseudoaneurysm of right femoral artery Plan Pt s/o right femoral artery pseudoaneurysm repair-POD 3 Pt doing well ARNEL drain intact Pt OOB to chair yesterday Plan Continue PT/OOB to chair Will remove Provena wound vac in the next few days Sandy CLEMENTE [facility] [phone] Discharge Planning 2-3 days (Sandy Ovalle) Plan i agree with above A/P. Plan for ambulation and removal of [place]ena wound vac . Samir Medina DO, FACS (Samir Medina DO) Sandy Ovalle Mar 07, 2017 10:00 Samir Medina DO Mar 07, 2017 13:28
--- NOTE | 2017-03-07 10:07 | HHI.PR ---
Subjective Remarks Follow-up for coronary disease status post a placement, pseudoaneurysm, cardiomyopathy Patient's sisters at the bedside. Patient stated that she feels the same today. She doesn't feel better or worse. During the interview patient was around 88-89% on 4 L of oxygen. She stated that her breathing is the same. Deny any chest pain or palpitation. Patient's nurse is at the bedside. Objective Vitals Vital Signs Date Time Temp Pulse Resp B/P (MAP) Pulse Ox O2 Delivery O2 Flow Rate FiO2 03/07/17 09:22 93 Nasal Cannula 4.00 03/07/17 07:00 80 03/07/17 07:00 98.6 89 17 100/54 (69) 94 03/07/17 07:00 94 Nasal Cannula 4.00 03/07/17 03:00 72 03/07/17 03:00 99.0 72 19 90/47 (61) 95 03/07/17 00:30 18 03/06/17 23:06 92 Nasal Cannula 4.00 03/06/17 23:00 98.9 86 20 92/51 (65) 94 Arterial Line 03/06/17 23:00 84 03/06/17 19:00 98.3 86 19 88/46 (60) 93 Arterial Line 03/06/17 19:00 86 03/06/17 19:00 93 Nasal Cannula 4.00 03/06/17 15:00 98.0 80 16 101/58 (72) 99 103/50 (67) 03/06/17 15:00 80 03/06/17 11:01 98.3 93 21 109/59 (76) 94 113/54 (73) 03/06/17 11:01 93 03/06/17 10:52 93 Nasal Cannula 2.00 I/O 03/06/17 03/06/17 03/06/17 03/07/17 03/07/17 03/07/17 07:00 15:00 23:00 07:00 15:00 23:00 Intake Total 2448 ml 935 ml 720 ml Output Total 805 ml 1760 ml 653 ml Balance 1643 ml -825 ml 67 ml Intake Oral 300 ml 900 ml 720 ml IV Total 2148 ml 35 ml Output Urine Total 800 ml 1750 ml 650 ml Drainage Total 5 ml 10 ml 3 ml # Bowel Movements 0 0 0 Result Diagram: 9/27/17 0430 9/27/17 0430 Objective Remarks GENERAL: in NAD SKIN: Right groin ecchymosis around the inner thigh. DP drain and wound VAC in place. HEAD: Normocephalic. EYES: No scleral icterus. No injection or drainage. NECK: Supple, trachea midline. No JVD or lymphadenopathy. CARDIOVASCULAR: Regular rate and rhythm without murmurs, gallops, or rubs. Trace edema in the lower extremity. RESPIRATORY: Breath sounds equal bilaterally. No accessory muscle use. GASTROINTESTINAL: Abdomen soft, non-tender, nondistended. Medications and IVs Current Medications Sodium Chloride (NS Flush) 2 ml UNSCH PRN IVF FLUSH AFTER USING IV ACCESS; Start 02/28/17 at 13:30; Stop 03/03/17 at 13:27; Status DC Albuterol/ Ipratropium (Duoneb Neb) 1 ampule Q15M INH Last administered on 02/28 13:30; Start 02/28/17 at 13:30; Stop 02/28/17 at 13:46; Status DC Methylprednisolone Sodium Succinate (SoluMEDROL INJ) 125 mg ONCE ONCE IV PUSH Last administered on 02/28/17 14:15; Start 02/28/17 at 14:15; Stop 02/28/17 at 14:16; Status DC Aspirin (Aspirin Chew) 324 mg ONCE ONCE PO Last administered on 02/28/17 14: 43; Start 02/28/17 at 14:45; Stop 02/28/17 at 14:46; Status DC Furosemide (Lasix Inj) 20 mg ONCE ONCE IV PUSH Last administered on 02/28/17 14:55; Start 02/28/17 at 14:45; Stop 02/28/17 at 14:46; Status DC Iohexol (Omnipaque 350 Inj) 74 ml STK-MED ONCE IVCONTRAST Last administered on 02/28/17 12:53; Start 02/28/17 at 12:53; Stop 02/28/17 at 15:11; Status DC Heparin Sodium (Porcine) (Heparin Inj) 4,000 units ONCE ONCE IV Last administered on 02/28/17 18:11; Start 02/28/17 at 17:30; Stop 02/28/17 at 17:31 ; Status DC Heparin Sodium (Porcine) (Heparin Inj) 5,000 units UNSCH PRN IV APTT LESS THAN 25; Start 02/28/17 at 23:30; Stop 03/02/17 at 09:48; Status DC Heparin Sodium (Porcine) (Heparin Inj) 2,500 units UNSCH PRN IV APTT 25 TO 39 Last administered on 03/01/17 22:09; Start 02/28/17 at 23:30; Stop 03/02/17 at 09:48; Status DC Heparin Sodium/ Dextrose 250 ml @ 9.36 mls/hr TITRATE PRN IV Coagulation management Last administered on 03/01/17 18:34; Start 02/28/17 at 17:30; Stop 03/02/17 at 09:48; Status DC Ramipril (Altace) 10 mg DAILY PO Last administered on 03/02/17 13:01; Start at 09:00; Status Future Hold Pravastatin Sodium (Pravachol) 80 mg HS PO Last administered on 03/06/17 20:23 ; Start 02/28/17 at 21:00 Sodium Chloride (NS Flush) 2 ml BID IV FLUSH Last administered on 03/07/17 09: 00; Start 02/28/17 at 21:00 Sodium Chloride (NS Flush) 2 ml UNSCH PRN IV FLUSH FLUSH AFTER USING IV ACCESS ; Start 02/28/17 at 18:15; Stop 03/03/17 at 13:27; Status DC Aspirin (Aspirin Chew) 162 mg DAILY PO Last administered on 03/01/17 09:30; Start 03/01/17 at 09:00; Stop 03/02/17 at 08:54; Status DC Metoprolol Tartrate (Lopressor) 25 mg BID PO Last administered on 03/01/17 22: 10; Start 02/28/17 at 21:00; Stop 03/02/17 at 08:48; Status DC Nitroglycerin (Nitroglycerin 2% Oint) 1 inch Q6HR TOP Last administered on 03/02 05:53; Start 02/28/17 at 19:30; Stop 03/02/17 at 08:54; Status DC Nitroglycerin (Nitrostat Sl) 0.4 mg Q5M PRN SL ANGINA; Start 02/28/17 at 18:15 Acetaminophen (Tylenol) 500 mg Q4H PRN PO PAIN 1-2 Last administered on 13:03; Start 02/28/17 at 18:15 Morphine Sulfate (Morphine Inj) 2 mg Q5M PRN IV PUSH breakthrough pain 6-10 Last administered on 03/05/17 00:45; Start 02/28/17 at 18:15 Famotidine (Pepcid) 20 mg BID PO Last administered on 03/07/17 09:10; Start at 21:00 Dextrose (D50w (Vial) Inj) 50 ml UNSCH PRN IV PUSH HYPOGLYCEMIA-SEE COMMENTS; Start 02/28/17 at 18:15 Glucagon (Glucagon Inj) 1 mg UNSCH PRN OTHER HYPOGLYCEMIA-SEE COMMENTS; Start 02/28/17 at 18:15 Insulin Aspart (NovoLOG SUPPLEMENTAL SCALE) 1 ACHS SLIDING SCALE SQ Last administered on 03/06/17 22:34; Start 02/28/17 at 21:00 Furosemide (Lasix Inj) 20 mg DAILY IV PUSH Last administered on 03/01/17 09:29 ; Start 03/01/17 at 09:00; Stop 03/02/17 at 08:54; Status DC Albuterol/ Ipratropium (Duoneb Neb) 1 ampule Q4HR NEB NEB Last administered on 03/05/17 05:25; Start 03/01/17 at 16:00; Stop 03/05/17 at 08:41; Status DC Guaifenesin (Mucinex Er) 600 mg BID PO Last administered on 03/07/17 09:10; Start 03/01/17 at 21:00 Sodium Chloride 1,000 ml @ 100 mls/hr Q10H IV Last administered on 03/03/17 08:43; Start 03/01/17 at 17:23; Stop 03/03/17 at 11:26; Status DC Aspirin (Aspirin) 325 mg TESTING SHAKING SHIPPING PO ; Start 03/01/17 at 17:30; Stop 03/05/17 at 17:29; Status DC Diphenhydramine HCl (Benadryl) 50 mg TESTING SHAKING SHIPPING PO Last administered on 05:54; Start 03/01/17 at 17:30; Stop 03/05/17 at 17:29; Status DC Diazepam (Valium) 10 mg TESTING SHAKING SHIPPING PO ; Start 03/01/17 at 17:30; Stop 03/05/17 at 17:29; Status DC Midazolam HCl (Versed Inj) 2 mg STK-MED ONCE .ROUTE Last administered on 07:35; Start 03/02/17 at 07:24; Stop 03/02/17 at 07:25; Status DC Verapamil HCl (Isoptin Inj) 5 mg STK-MED ONCE .ROUTE ; Start 03/02/17 at 07:31; Stop 03/02/17 at 07:32; Status DC Heparin Sodium (Porcine) (Heparin Inj) 10,000 units STK-MED ONCE .ROUTE Last administered on 03/02/17 07:39; Start 03/02/17 at 07:31; Stop 03/02/17 at 07:32 ; Status DC Tirofiban/Sodium Chloride 250 ml @ As Directed STK-MED ONCE IV Last administered on 03/02/17 07:55; Start 03/02/17 at 07:53; Stop 03/02/17 at 07:54 ; Status DC Ticagrelor (Brilinta) 180 mg STK-MED ONCE PO Last administered on 03/02/17 08: 36; Start 03/02/17 at 08:31; Stop 03/02/17 at 08:32; Status DC Metoprolol Tartrate (Lopressor) 50 mg BID PO Last administered on 03/02/17 20: 15; Start 03/02/17 at 09:00; Status Future Hold Sodium Chloride 1,000 ml @ 100 mls/hr Q10H IV ; Start 03/02/17 at 08:46; Stop 03/02/17 at 21:04; Status DC IV Flush (NS Flush) 2 ml UNSCH PRN IVF FLUSH AFTER USING IV ACCESS; Start 03/02 at 09:00 Temazepam (Restoril) 15 mg HS PRN PO SLEEP; Start 03/02/17 at 21:00 Aspirin (Aspirin Chew) 81 mg DAILY PO Last administered on 03/07/17 09:11; Start 03/03/17 at 09:00 Ticagrelor (Brilinta) 90 mg BID PO Last administered on 03/04/17 09:26; Start 03/03/17 at 09:00; Status Future Hold Tirofiban/Sodium Chloride 250 ml @ 13.914 mls/ hr [id number] IV ; Start 03/02/17 at 08:46; Stop 03/02/17 at 20:52; Status DC Miscellaneous Information 1 ONCE ONCE XX ; Start 03/02/17 at 09:00; Stop at 09:48; Status DC Furosemide (Lasix) 40 mg DAILY PO Last administered on 03/02/17 13:01; Start 03/02/17 at 10:00; Stop 03/03/17 at 11:26; Status DC Iohexol (OMNIPAQUE 350 INJ (Healthcare Insurance Sales Agent)) 100 ml STK-MED ONCE OTHER Last administered on 03/02/17 07:30; Start 03/02/17 at 07:30; Stop 03/02/17 at 09:53 ; Status DC Iohexol (OMNIPAQUE 350 INJ (Healthcare Insurance Sales Agent)) 50 ml STK-MED ONCE OTHER ; Start at 07:30; Stop 03/02/17 at 09:53; Status DC Midazolam HCl (Versed Inj) 2 mg ONCE ONCE IV ; Start 03/02/17 at 07:35; Stop at 11:11; Status DC Heparin Sodium (Porcine) (Heparin Inj) 5,000 units ONCE ONCE IV ; Start at 08:00; Stop 03/02/17 at 11:11; Status DC Ticagrelor (Brilinta) 180 mg ONCE ONCE PO ; Start 03/02/17 at 08:00; Stop 03/02 at 11:11; Status DC Atropine Sulfate (Atropine Inj) 1 mg STK-MED ONCE .ROUTE ; Start 03/02/17 at 11: 10; Stop 03/02/17 at 11:11; Status DC Furosemide (Lasix Inj) 40 mg DAILY IV PUSH Last administered on 03/05/17 08:50 ; Start 03/03/17 at 11:15; Stop 03/05/17 at 15:04; Status DC Potassium Chloride (KCl) 40 meq ONCE ONCE PO Last administered on 03/03/17 11 :49; Start 03/03/17 at 11:15; Stop 03/03/17 at 11:40; Status DC Potassium Chloride (KCl) 40 meq ONCE ONCE PO Last administered on 03/03/17 16 :23; Start 03/03/17 at 16:00; Stop 03/03/17 at 16:01; Status DC Methylprednisolone Sodium Succinate (SoluMEDROL INJ) 125 mg ONCE ONCE IV PUSH Last administered on 03/03/17 13:31; Start 03/03/17 at 13:30; Stop 03/03/17 at 13:31; Status DC Iohexol (Omnipaque 350 Inj) 100 ml STK-MED ONCE IVCONTRAST ; Start 03/04/17 at 18:44; Stop 03/04/17 at 18:45; Status DC Etomidate (Amidate Inj) 20 mg STK-MED ONCE .ROUTE ; Start 03/04/17 at 19:21; Stop 03/04/17 at 19:22; Status DC Heparin Sodium (Porcine) (Heparin Inj) 20,000 units STK-MED ONCE .ROUTE ; Start 03/04/17 at 19:39; Stop 03/04/17 at 19:40; Status DC Protamine Sulfate (Protamine Sulfate Inj) 50 mg STK-MED ONCE .ROUTE ; Start at 19:49; Stop 03/04/17 at 19:50; Status DC Heparin Sodium (Porcine) (Heparin Inj) 10,000 units STK-MED ONCE .ROUTE ; Start 03/04/17 at 19:49; Stop 03/04/17 at 19:50; Status DC Vancomycin HCl (Vancomycin Inj) 1,000 mg STK-MED ONCE .ROUTE Last administered on 03/04/17 08:38; Start 03/04/17 at 19:49; Stop 03/04/17 at 19:50; Status DC Thrombin (Thrombin Top [place]) 20,000 units STK-MED ONCE .ROUTE ; Start 03/04/17 at 19:49; Stop 03/04/17 at 19:50; Status DC Heparin Sodium/ Sodium Chloride 1,000 ml @ As Directed STK-MED ONCE .ROUTE Last administered on 03/04/17 19:49; Start 03/04/17 at 19:49; Stop 03/04/17 at 19:50; Status DC Bupivacaine HCl (Marcaine Pf 0.5% Inj) 30 ml STK-MED ONCE .ROUTE Last administered on 03/04/17 19:49; Start 03/04/17 at 19:49; Stop 03/04/17 at 19:50 ; Status DC Vasopressin (Pitressin Inj) 20 units STK-MED ONCE .ROUTE ; Start 03/04/17 at 19: 53; Stop 03/04/17 at 19:54; Status DC Sodium Chloride 1,000 ml @ 100 mls/hr Q10H IV Last administered on 03/05/17 16:13; Start 03/04/17 at 21:30; Stop 03/05/17 at 21:29; Status DC Ondansetron HCl (Zofran Inj) 4 mg Q6H PRN IV PUSH SEVERE NAUSEA AND/OR VOMITING ; Start 03/04/17 at 21:30 Magnesium Hydroxide (Milk Of Magnesia Liq) 30 ml DAILY PRN PO CONSTIPATION; Start 03/04/17 at 21:30 Docusate Calcium (Surfak) 240 mg HS PO Last administered on 03/06/17 20:23; Start 03/05/17 at 21:00 Vancomycin HCl 1000 mg/Sodium Chloride 250 ml @ 250 mls/hr Q12H IV Last administered on 03/05/17 19:48; Start 03/05/17 at 08:00; Stop 03/05/17 at 20:59 ; Status DC Miscellaneous Information (Post-op Orders (for Pharmacy)) STAT ONCE OTHER ; Start 03/04/17 at 21:30; Stop 03/04/17 at 21:40; Status DC Phenylephrine HCl 40 mg/Dextrose 500 ml @ 30 mls/hr TITRATE PRN IV Blood pressure management Last administered on 03/05/17 00:54; Start 03/04/17 at 23: 15 Terbutaline Sulfate (Brethine Inj) 1 mg UNSCH PRN SQ For Extravasation; Start 03/04/17 at 23:15; Stop 03/05/17 at 06:03; Status DC Norepinephrine Bitartrate 250 ml @ 7.5 mls/hr TITRATE PRN IV Blood pressure management Last administered on 03/05/17 16:13; Start 03/05/17 at 03:15 Terbutaline Sulfate (Brethine Inj) 1 mg UNSCH PRN SQ For Extravasation; Start 03/05/17 at 03:15 Potassium Chloride 100 ml @ 50 mls/hr Q2H PRN IV For Potassium 2.8 - 3.2 mEq/ L Last administered on 03/05/17t 10:20; Start 03/05/17 at 06:00 Potassium Chloride 100 ml @ 50 mls/hr Q2H PRN IV For Potassium 2.8 - 3.2 mEq/L ; Start 03/05/17 at 06:00 Potassium Bicarb/ Potassium Chloride (K-Lyte Cl Eff) 50 meq UNSCH PRN PO For Potassium 3.3 - 3.5 mEq/L; Start 03/05/17 at 06:00 Potassium Chloride 100 ml @ 25 mls/hr UNSCH PRN IV For Potassium 3.3 - 3.5 mEq /L; Start 03/05/17 at 06:00 Potassium Chloride 100 ml @ 50 mls/hr Q2H PRN IV For Potassium 3.3 - 3.5 mEq/L ; Start 03/05/17 at 06:00 Magnesium Sulfate 4 gm/Sodium Chloride 100 ml @ 50 mls/hr UNSCH PRN IV For Magnesium 0.9 - 1.1 mg/dL; Start 03/05/17 at 06:00 Magnesium Oxide (Mag-Ox) 800 mg UNSCH PRN PO For Magnesium 1.2 - 1.6 mg/dL; Start 03/05/17 at 06:00 Magnesium Sulfate 2 gm/Sodium Chloride 100 ml @ 50 mls/hr UNSCH PRN IV For Magnesium 1.2 - 1.6 mg/dL; Start 03/05/17 at 06:00 Potassium Phosphate (K-Phos) 2,000 mg Q4H PRN PO For Phosphorus < 2.5 mg/dL; Start 03/05/17 at 06:00 Sodium Phosphate 30 mmol/Sodium Chloride 250 ml @ 42 mls/hr UNSCH PRN IV For Phosphorus < 2.5 mg/dL; Start 03/05/17 at 06:00 Potassium Phosphate (K-Phos) 2,000 mg UNSCH PRN PO/TUBE SEE LABEL COMMENTS; Start 03/05/17 at 06:00 Potassium Phosphate 30 mmol/ Sodium Chloride 260 ml @ 42 mls/hr UNSCH PRN IV SEE LABEL COMMENTS; Start 03/05/17 at 06:00 Sodium Chloride 250 ml @ 15 mls/hr ONCE ONCE IV Last administered on 06:45; Start 03/05/17 at 06:00; Stop 03/05/17 at 22:39; Status DC Furosemide (Lasix Inj) 20 mg ONCE ONCE IV Last administered on 03/05/17 08:49 ; Start 03/05/17 at 06:00; Stop 03/05/17 at 06:01; Status DC Acetaminophen/ Hydrocodone Bitart ([place] 5-325 Mg) 1 tab Q6H PRN PO PAIN 3-10 Last administered on 03/06/17 23:30; Start 03/05/17 at 08:30 Albuterol/ Ipratropium (Duoneb Neb) 1 ampule Q6HR NEB NEB Last administered on 03/07/17 09:20; Start 03/05/17 at 10:00 Furosemide (Lasix) 40 mg DAILY PO Last administered on 03/07/17 09:11; Start 03/06/17 at 09:00 Sodium Chloride (NS Flush) See Protocol DAILY IV FLUSH Last administered on 09:12; Start 03/06/17 at 09:00 Sodium Chloride (NS Flush) See Protocol UNSCH PRN IV FLUSH SEE PROTOCOL TABLE; Start 03/05/17 at 15:45 Heparin Sodium (Porcine) (Heparin Central Flush) See Protocol DAILY IV FLUSH Last administered on 03/07/17 09:12; Start 03/06/17 at 09:00 Heparin Sodium (Porcine) (Heparin Central Flush) See Protocol UNSCH PRN IV FLUSH SEE PROTOCOL TABLE; Start 03/05/17 at 15:45 Sodium Chloride (NS Flush) UNSCH PRN IV FLUSH SEE PROTOCOL TABLE; Start at 15:45 A/P Assessment and Plan 76-year-old female with history of coronary disease status post stent placement and balloon angioplasty, history of ND, history of left bundle branch block, COPD, type 2 diabetes, hypertension, hyperlipidemia who presented with shortness of breathing, chest pain, lower extremity edema Pseudoaneurysm -Complication due to cardiac catheterization. Status post repair of aneurysm. 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 -Per vascular surgeon ARNEL drain and wound VAC to be remain a few more days. -Recommend out of bed. Coronary artery disease CAD and history of ND, Left Bundle branch block, status post PCI and stent placement -Cardiac Catheterization,s/p showed two high grade lesions in very large distal RCA, both stented with drug eluting stents -on daily baby aspirin. Brilinta is on hold. -Due to low blood pressure unable to start SERGIO inhibitor and beta juan. -Management per instructor of nursing. Repeat echo in 90 days. Anemia -Hemoglobin stable. -No signs of active bleeding. -Secondary to pseudo-aneurysm. -Continue to monitor hemoglobin. Dilated cardiomyopathy EF of 20%. -See treatment as above. -On oral Lasix. Respiratory failure with hypoxia -Most likely secondary to diagnosis as above. -Patient is requiring more oxygen today. Will get a stat chest x-ray and BNP. -Continue monitor closely. Tobacco dependence -smoking cessation. COPD -asymptomatic. Fibromyalgia by history . DM II -continue sliding scale Hyperlipidemia -continue Home medicines. Hypokalemia -replaced as needed. Dealt with patient's nurse, patient, and her sister at the bedside. Yael Liang MD Mar 07, 2017 10:07
--- NOTE | 2017-03-07 10:43 | RADRPT ---
EXAM DATE/TIME: 03/07/2017 10:16 [place] COMPARISON: CHEST SINGLE AP, March 05, 2017, 15:20. INDICATIONS : Short of breath. MEDICAL HISTORY : Hypertension. Cardiovascular disease. Diabetes mellitus type II. myocardial infarction x2 SURGICAL HISTORY : 2 stents ENCOUNTER: Initial ACUITY: 3 days PAIN SCORE: 0/10 LOCATION: Bilateral chest FINDINGS: Cardiomegaly with moderate bibasilar parenchymal changes progressed in the interval particularly on t he left. Moderate cardiomegaly without overt failure. PICC line in good position. Degenerative migdalia nges right shoulder. CONCLUSION: Increasing bibasilar parenchymal changes moderate cardiomegaly. Fausto Moe MD FACR on March 07, 2017 at 10:41 Board Certified Radiologist. This report was verified electronically.
[2017-03-07] MEDS ORDERED: FUROSEMIDE 20 MG/2 ML VIAL IV PUSH ONE (12:00)
[2017-03-07] MEDS: ACETAMINOPHEN/HYDROcodone 325 MG/5 MG TAB PO PRN ×2 (13:05→23:30)
--- NOTE | 2017-03-07 21:16 | MB ---
cc: Fiorella LANGLEY M.D. DATE OF CONSULTATION 03/07/17 HISTORY Ms. Byers is a 76-year-old white female who presented with a past history of coronary artery disease having had stents placed in 1999 with an angioplasty in 2005 with an acute ischemic event. She had a prior history of COPD complicating this. She underwent a cardiac cath on 03/02 with single vessel disease and had two stents placed by Dr. Maddox. EF at that time was about 25%. Post procedure she developed large ecchymosis on the right thigh and lower extremity. Ultrasound showed a pseudo aneurysm. She went to surgery to have that corrected by Dr. Medina. She received a considerable fluid resuscitation during that and was also on phenylephrine for a short time. I am asked to see her for persistent hypoxemia. At the time of the interview the patient is sitting up comfortable. Sats of 92-94% on 4 liters. She smoked right up to the time of admission, has smoked for at least 50 years but is committed to quitting at this point. She has been told she had COPD in the past but she has never required oxygen therapy and she has never used bronchodilators. Recent change in primary care physicians. At the present time she says she is breathing comfortably. She is having no chest pain. There is a cough but it is nonproductive. She has had no persistent fever. No hemoptysis. PAST MEDICAL HISTORY Coronary artery disease. 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 Type 2 diabetes, COPD, hiatal hernia, hypertension, fibromyalgia, prior cholecystectomy, appendectomy, hysterectomy and oophorectomy. ALLERGIES PENICILLIN G. SOCIAL HISTORY She lives with his sister who does not smoke. She denies any significant alcohol use. Originally from the [facility] but has lived here for several years and smoked right up to the time of admission. MEDICATIONS Reviewed in the EMR. She has been off anticoagulants due to the oozing from the wound in the right groin. PHYSICAL EXAMINATION GENERAL: She is awake, alert, comfortable, actually eating her dinner at the present time. VITAL SIGNS: She is afebrile. Her pulse is 90, respirations are 18, O2 sat 97% on 4 liters and a blood pressure is 95/53. HEENT: Sclerae anicteric. NECK: Neck veins are not distended. CHEST: Chest is actually quite clear. No basilar rales. No wheezes or congestion. HEART: Heart rate is regular. No audible S3. EXTREMITIES: She has edema in the right leg and ecchymosis with a drain in place in the right groin. Good movement on the right leg. Left leg is negative, no edema. No cyanosis. IMAGING STUDIES Chest x-rays were reviewed and are actually quite clear other than some basilar atelectasis. A CTA was done on admission which revealed no pulmonary embolism, small effusions and some minimal interstitial changes. LABORATORY DATA White blood cell count is 4600, hemoglobin is 8.2, BUN and creatinine are normal. BNP is 237. DISCUSSION Ms. Byers presented with an acute ischemic cardiac event. She has had stents placed and had a complication with a pseudoaneurysm in the right groin. Undoubtedly has underlying COPD but actually looks remarkably well tonight. I do not think she will wean off oxygen quickly considering the longstanding smoking history and probable underlying COPD. I do not see any evidence on the original CT of interstitial lung disease, although, obviously with her heart condition she may have some interstitial edema. I would suggest continuing her on nebulized aerosol treatments, oxygen and if the risk of bleeding from the pseudoaneurysm resolves then a prophylactic regimen of heparin or Lovenox will be appropriate but up to this point they have been holding those drugs and even her antiplatelet agents because of the risk of bleeding apparently at the surgical site from the aneurysm. Thank you for asking me to see her with you in consultation. MD ISABEL Hu/CHICO /6:11 PM /9:02 PM
[2017-03-07] MEDS: PRAVASTATIN SOD 80 MG TAB PO SCH (21:28)
[2017-03-07] MEDS: DOCUSATE CALCIUM 240 MG CAP PO SCH (21:28)
[2017-03-08] VITALS (11 sets, daily range): BP systolic 82–108; BP diastolic 41–63; PULSE 77–97; RESP 16–22; TEMP 98.1–98.6; O2SAT 92–98
[2017-03-08] MEDS: RESP: ALBUTEROL 2.5 MG/IPRATROPIUM 0.5 MG NEB (SCH) NEB ×4 (03:15→20:50)
[2017-03-08] MEDS: ACETAMINOPHEN 500 MG CPLT PO PRN (07:13)
[2017-03-08] MEDS: INSULIN ASPART SUPPLEMENTAL SCALE SQ SCH ×4 (08:00→21:00)
[2017-03-08] MEDS: guaiFENesin E.R. 600 MG TAB PO SCH ×2 (09:10→21:56)
[2017-03-08] MEDS: FUROSEMIDE 40 MG TAB PO SCH (09:11)
[2017-03-08] MEDS: FAMOTIDINE 20 MG TAB PO SCH ×2 (09:11→21:56)
[2017-03-08] MEDS: ASPIRIN 81 MG CHEW TAB PO SCH (09:11)
[2017-03-08] MEDS: SODIUM CHLORIDE 0.9% FLUSH 10 ML FLUSH IV FLUSH SCH ×3 (09:12→21:56)
--- NOTE | 2017-03-08 09:51 | HHI.PR ---
Subjective Remarks Follow-up post catheter, pseudoaneurysm repair, and respiratory failure Patient on sending the chair. She stated she is doing a lot better. Shortness of breathing has improved. She is now on 4 L of oxygen nasal cannula. Patient only concern is that she had her right foot came out quickly on its own. He stated only happen once but she has control and that pain in her leg has improved. Pressure stable with systolic blood pressures in the 80s to 90s. Patient's sister is also at the bedside and she had no questions. Discussed with patient's nurse Objective Vitals Vital Signs Date Time Temp Pulse Resp B/P (MAP) Pulse Ox O2 Delivery O2 Flow Rate FiO2 03/08/17 09:31 94 Nasal Cannula 4.00 03/08/17 07:00 93 Nasal Cannula 4.00 03/08/17 07:00 98.2 92 16 91/63 (72) 92 03/08/17 07:00 92 03/08/17 04:00 98.1 77 20 96/46 (63) 94 03/08/17 03:20 81 03/08/17 00:00 98.2 86 22 93/41 (58) 98 03/07/17 23:50 84 03/07/17 22:08 94 Nasal Cannula 5.00 03/07/17 20:00 97.8 86 24 95/52 (66) 92 03/07/17 19:30 96 03/07/17 19:30 92 Blow By 5.00 03/07/17 19:00 22 03/07/17 15:00 97.9 97 19 95/53 (67) 97 03/07/17 15:00 98 03/07/17 14:03 20 03/07/17 11:00 90 03/07/17 11:00 97.5 93 16 86/47 (60) 91 I/O 03/07/17 03/07/17 03/07/17 03/08/17 03/08/17 03/08/17 07:00 15:00 23:00 07:00 15:00 23:00 Intake Total 720 ml 900 ml 720 ml Output Total 653 ml 1835 ml 855 ml Balance 67 ml -935 ml -135 ml Intake Oral 720 ml 900 ml 720 ml IV Total 0 ml Output Urine Total 650 ml 1815 ml 850 ml Drainage Total 3 ml 20 ml 5 ml # Bowel Movements 0 0 0 Result Diagram: 03/07/17 0430 03/07/17 0430 Imaging Last Impressions Chest X-Ray 03/07/17 0000 Signed Impressions: Service Date/Time: Tuesday, March 07, 2017 10:16 - CONCLUSION: Increasing bibasilar parenchymal changes moderate cardiomegaly. Fausto Moe MD FACR Lower Extremity Ultrasound 03/04/17 0000 Signed Impressions: Service Date/Time: Saturday, March 04, 2017 16:15 - CONCLUSION: Right groin pseudoaneurysm. Prasanna Llanes MD Aorta w/Runoff CTA 03/04/17 0000 Signed Impressions: Service Date/Time: Saturday, March 04, 2017 18:37 - CONCLUSION: 1. Oderate 2 large pseudoaneurysm again noted. 2. Diffuse atherosclerotic change with no aneurysm or high-grade stenosis identified. There are small ulcerative plaques in the abdominal aorta. 3. The distal anterior tibial arteries could not be visualized on either side and this is likely technical in nature. 4. Nonobstructing left renal calculus. Prasanna Llanes MD CT Angiography 02/28/17 1326 Signed Impressions: Service Date/Time: Tuesday, February 28, 2017 15:07 - CONCLUSION: 1. No PE is identified. 2. Small bilateral pleural effusions with a smooth septal thickening in the lower lobes. These findings suggest mild pulmonary edema. Given the enlarged cardiac silhouette, a cardiogenic cause should be considered. 3. Nonspecific 8mm right adrenal gland nodule. It does not meet criteria for an adenoma on this examination. Duc Bryant MD Objective Remarks GENERAL: in NAD SKIN: Right groin ecchymosis around the inner thigh. DP drain and wound VAC in place. HEAD: Normocephalic. EYES: No scleral icterus. No injection or drainage. NECK: Supple, trachea midline. No JVD or lymphadenopathy. CARDIOVASCULAR: Regular rate and rhythm without murmurs, gallops, or rubs. Trace edema in the lower extremity and right lower extremity. RESPIRATORY: Breath sounds equal bilaterally. No accessory muscle use. GASTROINTESTINAL: Abdomen soft, non-tender, nondistended. Medications and IVs Current Medications Sodium Chloride (NS Flush) 2 ml UNSCH PRN IVF FLUSH AFTER USING IV ACCESS; Start 02/28/17 at 13:30; Stop 03/03/17 at 13:27; Status DC Albuterol/ Ipratropium (Duoneb Neb) 1 ampule Q15M INH Last administered on 02/28 13:30; Start 02/28/17 at 13:30; Stop 02/28/17 at 13:46; Status DC Methylprednisolone Sodium Succinate (SoluMEDROL INJ) 125 mg ONCE ONCE IV PUSH Last administered on 02/28/17 14:15; Start 02/28/17 at 14:15; Stop 02/28/17 at 14:16; Status DC Aspirin (Aspirin Chew) 324 mg ONCE ONCE PO Last administered on 02/28/17 14: 43; Start 02/28/17 at 14:45; Stop 02/28/17 at 14:46; Status DC Furosemide (Lasix Inj) 20 mg ONCE ONCE IV PUSH Last administered on 02/28/17 14:55; Start 02/28/17 at 14:45; Stop 02/28/17 at 14:46; Status DC Iohexol (Omnipaque 350 Inj) 74 ml STK-MED ONCE IVCONTRAST Last administered on 02/28/17 12:53; Start 02/28/17 at 12:53; Stop 02/28/17 at 15:11; Status DC Heparin Sodium (Porcine) (Heparin Inj) 4,000 units ONCE ONCE IV Last administered on 02/28/17 18:11; Start 02/28/17 at 17:30; Stop 02/28/17 at 17:31 ; Status DC Heparin Sodium (Porcine) (Heparin Inj) 5,000 units UNSCH PRN IV APTT LESS THAN 25; Start 02/28/17 at 23:30; Stop 03/02/17 at 09:48; Status DC Heparin Sodium (Porcine) (Heparin Inj) 2,500 units UNSCH PRN IV APTT 25 TO 39 Last administered on 03/01/17 22:09; Start 02/28/17 at 23:30; Stop 03/02/17 at 09:48; Status DC Heparin Sodium/ Dextrose 250 ml @ 9.36 mls/hr TITRATE PRN IV Coagulation management Last administered on 03/01/17 18:34; Start 02/28/17 at 17:30; Stop 03/02/17 at 09:48; Status DC Ramipril (Altace) 10 mg DAILY PO Last administered on 03/02/17 13:01; Start at 09:00; Status Future Hold Pravastatin Sodium (Pravachol) 80 mg HS PO Last administered on 03/07/17 21:28 ; Start 02/28/17 at 21:00 Sodium Chloride (NS Flush) 2 ml BID IV FLUSH Last administered on 03/08/17 09: 12; Start 02/28/17 at 21:00 Sodium Chloride (NS Flush) 2 ml UNSCH PRN IV FLUSH FLUSH AFTER USING IV ACCESS ; Start 02/28/17 at 18:15; Stop 03/03/17 at 13:27; Status DC Aspirin (Aspirin Chew) 162 mg DAILY PO Last administered on 03/01/17 09:30; Start 03/01/17 at 09:00; Stop 03/02/17 at 08:54; Status DC Metoprolol Tartrate (Lopressor) 25 mg BID PO Last administered on 03/01/17 22: 10; Start 02/28/17 at 21:00; Stop 03/02/17 at 08:48; Status DC Nitroglycerin (Nitroglycerin 2% Oint) 1 inch Q6HR TOP Last administered on 03/02 05:53; Start 02/28/17 at 19:30; Stop 03/02/17 at 08:54; Status DC Nitroglycerin (Nitrostat Sl) 0.4 mg Q5M PRN SL ANGINA; Start 02/28/17 at 18:15 Acetaminophen (Tylenol) 500 mg Q4H PRN PO PAIN 1-2 Last administered on 07:13; Start 02/28/17 at 18:15 Morphine Sulfate (Morphine Inj) 2 mg Q5M PRN IV PUSH breakthrough pain 6-10 Last administered on 03/05/17 00:45; Start 02/28/17 at 18:15 Famotidine (Pepcid) 20 mg BID PO Last administered on 03/08/17 09:11; Start at 21:00 Dextrose (D50w (Vial) Inj) 50 ml UNSCH PRN IV PUSH HYPOGLYCEMIA-SEE COMMENTS; Start 02/28/17 at 18:15 Glucagon (Glucagon Inj) 1 mg UNSCH PRN OTHER HYPOGLYCEMIA-SEE COMMENTS; Start 02/28/17 at 18:15 Insulin Aspart (NovoLOG SUPPLEMENTAL SCALE) 1 ACHS SLIDING SCALE SQ Last administered on 03/07/17 17:00; Start 02/28/17 at 21:00 Furosemide (Lasix Inj) 20 mg DAILY IV PUSH Last administered on 03/01/17 09:29 ; Start 03/01/17 at 09:00; Stop 03/02/17 at 08:54; Status DC Albuterol/ Ipratropium (Duoneb Neb) 1 ampule Q4HR NEB NEB Last administered on 03/05/17 05:25; Start 03/01/17 at 16:00; Stop 03/05/17 at 08:41; Status DC Guaifenesin (Mucinex Er) 600 mg BID PO Last administered on 03/08/17 09:10; Start 03/01/17 at 21:00 Sodium Chloride 1,000 ml @ 100 mls/hr Q10H IV Last administered on 03/03/17 08:43; Start 03/01/17 at 17:23; Stop 03/03/17 at 11:26; Status DC Aspirin (Aspirin) 325 mg COSMETIC MANAGER PO ; Start 03/01/17 at 17:30; Stop 03/05/17 at 17:29; Status DC Diphenhydramine HCl (Benadryl) 50 mg COSMETIC MANAGER PO Last administered on 05:54; Start 03/01/17 at 17:30; Stop 03/05/17 at 17:29; Status DC Diazepam (Valium) 10 mg COSMETIC MANAGER PO ; Start 03/01/17 at 17:30; Stop 03/05/17 at 17:29; Status DC Midazolam HCl (Versed Inj) 2 mg STK-MED ONCE .ROUTE Last administered on 07:35; Start 03/02/17 at 07:24; Stop 03/02/17 at 07:25; Status DC Verapamil HCl (Isoptin Inj) 5 mg STK-MED ONCE .ROUTE ; Start 03/02/17 at 07:31; Stop 03/02/17 at 07:32; Status DC Heparin Sodium (Porcine) (Heparin Inj) 10,000 units STK-MED ONCE .ROUTE Last administered on 9/22/17at 07:39; Start 03/02/17 at 07:31; Stop 03/02/17 at 07:32 ; Status DC Tirofiban/Sodium Chloride 250 ml @ As Directed STK-MED ONCE IV Last administered on 03/02/17 07:55; Start 03/02/17 at 07:53; Stop 03/02/17 at 07:54 ; Status DC Ticagrelor (Brilinta) 180 mg STK-MED ONCE PO Last administered on 03/02/17 08: 36; Start 03/02/17 at 08:31; Stop 03/02/17 at 08:32; Status DC Metoprolol Tartrate (Lopressor) 50 mg BID PO Last administered on 03/02/17 20: 15; Start 03/02/17 at 09:00; Status Future Hold Sodium Chloride 1,000 ml @ 100 mls/hr Q10H IV ; Start 03/02/17 at 08:46; Stop 03/02/17 at 21:04; Status DC IV Flush (NS Flush) 2 ml UNSCH PRN IVF FLUSH AFTER USING IV ACCESS; Start 03/02 at 09:00 Temazepam (Restoril) 15 mg HS PRN PO SLEEP; Start 03/02/17 at 21:00 Aspirin (Aspirin Chew) 81 mg DAILY PO Last administered on 03/08/17 09:11; Start 03/03/17 at 09:00 Ticagrelor (Brilinta) 90 mg BID PO Last administered on 03/04/17 09:26; Start 03/03/17 at 09:00; Status Future Hold Tirofiban/Sodium Chloride 250 ml @ 13.914 mls/ hr [id number] IV ; Start 03/02/17 at 08:46; Stop 03/02/17 at 20:52; Status DC Miscellaneous Information 1 ONCE ONCE XX ; Start 03/02/17 at 09:00; Stop at 09:48; Status DC Furosemide (Lasix) 40 mg DAILY PO Last administered on 03/02/17 13:01; Start 03/02/17 at 10:00; Stop 03/03/17 at 11:26; Status DC Iohexol (OMNIPAQUE 350 INJ (Tin Container Straightener)) 100 ml STK-MED ONCE OTHER Last administered on 03/02/17 07:30; Start 03/02/17 at 07:30; Stop 03/02/17 at 09:53 ; Status DC Iohexol (OMNIPAQUE 350 INJ (Tin Container Straightener)) 50 ml STK-MED ONCE OTHER ; Start at 07:30; Stop 03/02/17 at 09:53; Status DC Midazolam HCl (Versed Inj) 2 mg ONCE ONCE IV ; Start 03/02/17 at 07:35; Stop at 11:11; Status DC Heparin Sodium (Porcine) (Heparin Inj) 5,000 units ONCE ONCE IV ; Start at 08:00; Stop 03/02/17 at 11:11; Status DC Ticagrelor (Brilinta) 180 mg ONCE ONCE PO ; Start 03/02/17 at 08:00; Stop 03/02 at 11:11; Status DC Atropine Sulfate (Atropine Inj) 1 mg STK-MED ONCE .ROUTE ; Start 03/02/17 at 11: 10; Stop 03/02/17 at 11:11; Status DC Furosemide (Lasix Inj) 40 mg DAILY IV PUSH Last administered on 03/05/17 08:50 ; Start 03/03/17 at 11:15; Stop 03/05/17 at 15:04; Status DC Potassium Chloride (KCl) 40 meq ONCE ONCE PO Last administered on 03/03/17 11 :49; Start 03/03/17 at 11:15; Stop 03/03/17 at 11:40; Status DC Potassium Chloride (KCl) 40 meq ONCE ONCE PO Last administered on 03/03/17 16 :23; Start 03/03/17 at 16:00; Stop 03/03/17 at 16:01; Status DC Methylprednisolone Sodium Succinate (SoluMEDROL INJ) 125 mg ONCE ONCE IV PUSH Last administered on 03/03/17 13:31; Start 03/03/17 at 13:30; Stop 03/03/17 at 13:31; Status DC Iohexol (Omnipaque 350 Inj) 100 ml STK-MED ONCE IVCONTRAST ; Start 03/04/17 at 18:44; Stop 03/04/17 at 18:45; Status DC Etomidate (Amidate Inj) 20 mg STK-MED ONCE .ROUTE ; Start 03/04/17 at 19:21; Stop 03/04/17 at 19:22; Status DC Heparin Sodium (Porcine) (Heparin Inj) 20,000 units STK-MED ONCE .ROUTE ; Start 03/04/17 at 19:39; Stop 03/04/17 at 19:40; Status DC Protamine Sulfate (Protamine Sulfate Inj) 50 mg STK-MED ONCE .ROUTE ; Start at 19:49; Stop 03/04/17 at 19:50; Status DC Heparin Sodium (Porcine) (Heparin Inj) 10,000 units STK-MED ONCE .ROUTE ; Start 03/04/17 at 19:49; Stop 03/04/17 at 19:50; Status DC Vancomycin HCl (Vancomycin Inj) 1,000 mg STK-MED ONCE .ROUTE Last administered on 03/04/17 08:38; Start 03/04/17 at 19:49; Stop 03/04/17 at 19:50; Status DC Thrombin (Thrombin Top Raymond) 20,000 units STK-MED ONCE .ROUTE ; Start 03/04/17 at 19:49; Stop 03/04/17 at 19:50; Status DC Heparin Sodium/ Sodium Chloride 1,000 ml @ As Directed STK-MED ONCE .ROUTE Last administered on 03/04/17 19:49; Start 03/04/17 at 19:49; Stop 03/04/17 at 19:50; Status DC Bupivacaine HCl (Marcaine Pf 0.5% Inj) 30 ml STK-MED ONCE .ROUTE Last administered on 03/04/17 19:49; Start 03/04/17 at 19:49; Stop 03/04/17 at 19:50 ; Status DC Vasopressin (Pitressin Inj) 20 units STK-MED ONCE .ROUTE ; Start 03/04/17 at 19: 53; Stop 03/04/17 at 19:54; Status DC Sodium Chloride 1,000 ml @ 100 mls/hr Q10H IV Last administered on 03/05/17 16:13; Start 03/04/17 at 21:30; Stop 03/05/17 at 21:29; Status DC Ondansetron HCl (Zofran Inj) 4 mg Q6H PRN IV PUSH SEVERE NAUSEA AND/OR VOMITING ; Start 03/04/17 at 21:30 Magnesium Hydroxide (Milk Of Magnesia Liq) 30 ml DAILY PRN PO CONSTIPATION; Start 03/04/17 at 21:30 Docusate Calcium (Surfak) 240 mg HS PO Last administered on 03/07/17 21:28; Start 03/05/17 at 21:00 Vancomycin HCl 1000 mg/Sodium Chloride 250 ml @ 250 mls/hr Q12H IV Last administered on 03/05/17 19:48; Start 03/05/17 at 08:00; Stop 03/05/17 at 20:59 ; Status DC Miscellaneous Information (Post-op Orders (for Pharmacy)) STAT ONCE OTHER ; Start 03/04/17 at 21:30; Stop 03/04/17 at 21:40; Status DC Phenylephrine HCl 40 mg/Dextrose 500 ml @ 30 mls/hr TITRATE PRN IV Blood pressure management Last administered on 03/05/17 00:54; Start 03/04/17 at 23: 15 Terbutaline Sulfate (Brethine Inj) 1 mg UNSCH PRN SQ For Extravasation; Start 03/04/17 at 23:15; Stop 03/05/17 at 06:03; Status DC Norepinephrine Bitartrate 250 ml @ 7.5 mls/hr TITRATE PRN IV Blood pressure management Last administered on 03/05/17 16:13; Start 03/05/17 at 03:15 Terbutaline Sulfate (Brethine Inj) 1 mg UNSCH PRN SQ For Extravasation; Start 03/05/17 at 03:15 Potassium Chloride 100 ml @ 50 mls/hr Q2H PRN IV For Potassium 2.8 - 3.2 mEq/ L Last administered on 03/05/17 10:20; Start 03/05/17 at 06:00 Potassium Chloride 100 ml @ 50 mls/hr Q2H PRN IV For Potassium 2.8 - 3.2 mEq/L ; Start 03/05/17 at 06:00 Potassium Bicarb/ Potassium Chloride (K-Lyte Cl Eff) 50 meq UNSCH PRN PO For Potassium 3.3 - 3.5 mEq/L; Start 03/05/17 at 06:00 Potassium Chloride 100 ml @ 25 mls/hr UNSCH PRN IV For Potassium 3.3 - 3.5 mEq /L; Start 03/05/17 at 06:00 Potassium Chloride 100 ml @ 50 mls/hr Q2H PRN IV For Potassium 3.3 - 3.5 mEq/L ; Start 03/05/17 at 06:00 Magnesium Sulfate 4 gm/Sodium Chloride 100 ml @ 50 mls/hr UNSCH PRN IV For Magnesium 0.9 - 1.1 mg/dL; Start 03/05/17 at 06:00 Magnesium Oxide (Mag-Ox) 800 mg UNSCH PRN PO For Magnesium 1.2 - 1.6 mg/dL; Start 03/05/17 at 06:00 Magnesium Sulfate 2 gm/Sodium Chloride 100 ml @ 50 mls/hr UNSCH PRN IV For Magnesium 1.2 - 1.6 mg/dL; Start 03/05/17 at 06:00 Potassium Phosphate (K-Phos) 2,000 mg Q4H PRN PO For Phosphorus < 2.5 mg/dL; Start 03/05/17 at 06:00 Sodium Phosphate 30 mmol/Sodium Chloride 250 ml @ 42 mls/hr UNSCH PRN IV For Phosphorus < 2.5 mg/dL; Start 03/05/17 at 06:00 Potassium Phosphate (K-Phos) 2,000 mg UNSCH PRN PO/TUBE SEE LABEL COMMENTS; Start 03/05/17 at 06:00 Potassium Phosphate 30 mmol/ Sodium Chloride 260 ml @ 42 mls/hr UNSCH PRN IV SEE LABEL COMMENTS; Start 03/05/17 at 06:00 Sodium Chloride 250 ml @ 15 mls/hr ONCE ONCE IV Last administered on 06:45; Start 03/05/17 at 06:00; Stop 03/05/17 at 22:39; Status DC Furosemide (Lasix Inj) 20 mg ONCE ONCE IV Last administered on 03/05/17 08:49 ; Start 03/05/17 at 06:00; Stop 03/05/17 at 06:01; Status DC Acetaminophen/ Hydrocodone Bitart ([place] 5-325 Mg) 1 tab Q6H PRN PO PAIN 3-10 Last administered on 03/07/17 23:30; Start 03/05/17 at 08:30 Albuterol/ Ipratropium (Duoneb Neb) 1 ampule Q6HR NEB NEB Last administered on 03/08/17 09:31; Start 03/05/17 at 10:00 Furosemide (Lasix) 40 mg DAILY PO Last administered on 03/08/17 09:11; Start 03/06/17 at 09:00 Sodium Chloride (NS Flush) See Protocol DAILY IV FLUSH Last administered on 09:12; Start 03/06/17 at 09:00 Sodium Chloride (NS Flush) See Protocol UNSCH PRN IV FLUSH SEE PROTOCOL TABLE; Start 03/05/17 at 15:45 Heparin Sodium (Porcine) (Heparin Central Flush) See Protocol DAILY IV FLUSH Last administered on 03/08/17 09:12; Start 03/06/17 at 09:00 Heparin Sodium (Porcine) (Heparin Central Flush) See Protocol UNSCH PRN IV FLUSH SEE PROTOCOL TABLE; Start 03/05/17 at 15:45 Sodium Chloride (NS Flush) UNSCH PRN IV FLUSH SEE PROTOCOL TABLE; Start at 15:45 Furosemide (Lasix Inj) 20 mg ONCE ONCE IV PUSH Last administered on 03/07/17 12:49; Start 03/07/17 at 12:00; Stop 03/07/17 at 12:01; Status DC A/P Assessment and Plan 76-year-old female with history of coronary disease status post stent placement and balloon angioplasty, history of CO, history of left bundle branch block, COPD, type 2 diabetes, hypertension, hyperlipidemia who presented with shortness of breathing, chest pain, lower extremity edema Pseudoaneurysm -Complication due to cardiac catheterization. Status post repair of aneurysm. 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 - Per nurse ARNEL drain and wound VAC wound be remove later today. -Recommend out of bed. Coronary artery disease CAD and history of CO, Left Bundle branch block, status post PCI and stent placement -Cardiac Catheterization,s/p showed two high grade lesions in very large distal RCA, both stented with drug eluting stents -on daily baby aspirin. Brilinta is on hold. -Due to low blood pressure unable to start SERGIO inhibitor and beta juan. -Management per staff midwife. Repeat echo in 90 days. Anemia -Hemoglobin stable. -No signs of active bleeding. -Secondary to pseudo-aneurysm. -Continue to monitor hemoglobin. Dilated cardiomyopathy EF of 20%. -See treatment as above. -On oral Lasix. Respiratory failure with hypoxia -Most likely secondary to diagnosis as above along with possible COPD. Professional Advisor consulted and appreciate recommendation. Per clinical systems educator due to recent cardiac event along with COPD she may take some time to be weaned off of oxygen. -Continue with Lasix. Continue to supplement with oxygen as needed. -Continue monitor closely. Tobacco dependence -smoking cessation. COPD -asymptomatic. Fibromyalgia by history . DM II -continue sliding scale Hyperlipidemia -continue Home medicines. Hypokalemia -replaced as needed. Discussed with patient's nurse, patient, and her sister at the bedside. Yael Liang MD Mar 08, 2017 09:51
--- NOTE | 2017-03-08 10:53 | PD.VS.PN ---
Subjective POD #: 4 Procedure(s): right femoral artery pseudoaneurysm repair. Subjective/Hospital Course Afebrile 76/F ARNEL drain intact to R LE BLE warm w/ motor intact Pt reported she ambulated the hallway w/ PT yesterday (Sandy Ovalle) Objective Vitals/I&O Date Time Temp Pulse Resp B/P (MAP) Pulse Ox O2 Delivery O2 Flow Rate FiO2 03/08/17 09:31 94 Nasal Cannula 4.00 03/08/17 07:00 93 Nasal Cannula 4.00 03/08/17 07:00 98.2 92 16 91/63 (72) 92 03/08/17 07:00 92 03/08/17 04:00 98.1 77 20 96/46 (63) 94 03/08/17 03:20 81 03/08/17 00:00 98.2 86 22 93/41 (58) 98 03/07/17 23:50 84 03/07/17 22:08 94 Nasal Cannula 5.00 03/07/17 20:00 97.8 86 24 95/52 (66) 92 03/07/17 19:30 96 03/07/17 19:30 92 Blow By 5.00 03/07/17 19:00 22 03/07/17 15:00 97.9 97 19 95/53 (67) 97 03/07/17 15:00 98 03/07/17 14:03 20 03/07/17 11:00 90 03/07/17 11:00 97.5 93 16 86/47 (60) 91 03/08/17 03/08/17 03/08/17 07:00 15:00 23:00 Intake Total 720 ml Output Total 855 ml Balance -135 ml Exam: GENERAL: A&OX3,GCS15,NAD SKIN: Warm and dry Palpable R DP Palpable L DP R DP/PT with phasic signals heard via Doppler LE warm with motor intact Swelling with ecchymosis present to R upper thigh region Provena wound vac intact to R groin w/o hematoma ARNEL drain in place (Sandy Ovalle) Assessment and Plan Assessment: (1) Pseudoaneurysm of right femoral artery Status: Acute Plan Pt s/p Pseudoaneurysm right femoral artery -POD 4 Pt doing well with minimal drainage from ARNEL drain Pt ambulated yesterday w/ PT Pain controlled Plan Will removed provena wound vac this afternoon ARNEL drain to be removed to tomorrow Continue PT/OOB/ambulation Sandy CLEMENTE [facility] [phone] 06/07/17 at 1300 Removed Provena wound vac from R Groin. Incision intact with erythema at the incision line/ No Swelling/Odor present Discharge Planning 2 days (Sandy Ovalle) Plan Patient looks like she is improving. Still some pain in right groin but area soft and incision intact. Will keep drain in until she comes back to see me office next week. Brilinta can be restarted and will watch for signs of increased bleeding from drain or serous fluid which would indicate a hematoma or lympocutaenous fistula, respectively. Can be discharged from my standpoint. May need rehabilitation for improved walking distance and activities of daily living. Samir Medina DO, FACS (Samir Medina DO) Sandy Ovalle Mar 08, 2017 10:53 Samir Medina DO Mar 08, 2017 14:16
[2017-03-08] MEDS: ACETAMINOPHEN 325 MG TAB PO PRN ×2 (12:14→23:47)
[2017-03-08] MEDS ORDERED: TICAGRELOR 90 MG TAB PO SCH (21:00)
[2017-03-08] MEDS: DOCUSATE CALCIUM 240 MG CAP PO SCH (21:56)
[2017-03-08] MEDS: PRAVASTATIN SOD 80 MG TAB PO SCH (21:56)
[2017-03-09] VITALS (14 sets, daily range): BP systolic 93–127; BP diastolic 50–58; PULSE 75–94; RESP 16–22; TEMP 97.9–98.6; O2SAT 94–100
[2017-03-09] MEDS: RESP: ALBUTEROL 2.5 MG/IPRATROPIUM 0.5 MG NEB (SCH) NEB ×3 (03:34→22:29)
[2017-03-09 06:20] LABS: BICARBONATE 35.4 MEQ/L (21.0-32.0); POTASSIUM 3.7 MEQ/L (3.5-5.1)
[2017-03-09] MEDS: INSULIN ASPART SUPPLEMENTAL SCALE SQ SCH ×4 (08:00→20:49)
[2017-03-09] MEDS: SODIUM CHLORIDE 0.9% FLUSH 10 ML FLUSH IV FLUSH SCH ×3 (08:45→20:49)
[2017-03-09] MEDS: guaiFENesin E.R. 600 MG TAB PO SCH ×2 (08:46→20:49)
[2017-03-09] MEDS: FUROSEMIDE 40 MG TAB PO SCH (08:46)
[2017-03-09] MEDS: ASPIRIN 81 MG CHEW TAB PO SCH (08:46)
[2017-03-09] MEDS: FAMOTIDINE 20 MG TAB PO SCH ×2 (08:46→20:49)
--- NOTE | 2017-03-09 10:13 | HHI.PR ---
Subjective Remarks Follow-up for pseudoaneurysm repair Patient stated that she is doing better. She says she was walking the hallways yesterday. Pain is improving. Shortness of breathing has also been improving. Her sisters at the bedside. When I stated to patient that vascular surgeon has signed off and that she was cleared for discharge from their perspective and that we just need manager regional clearance patient stated that she did not feel comfortable leaving the hospital. Her sister felt the same way. Reassurance given but did not seem happy about that. Objective Vitals Vital Signs Date Time Temp Pulse Resp B/P (MAP) Pulse Ox O2 Delivery O2 Flow Rate FiO2 03/09/17 08:51 94 Nasal Cannula 5.00 03/09/17 07:49 98.5 81 16 102/50 (67) 94 03/09/17 07:47 81 03/09/17 07:45 94 Nasal Cannula 5.00 03/09/17 03:00 98.3 75 22 93/56 (68) 95 03/09/17 03:00 76 03/08/17 23:00 98.4 89 18 91/53 (66) 95 03/08/17 23:00 89 03/08/17 21:04 97 Nasal Cannula 4.50 03/08/17 19:00 98.5 87 17 108/54 (72) 96 03/08/17 19:00 96 Nasal Cannula 4.00 03/08/17 19:00 87 03/08/17 15:12 98.6 89 18 82/46 (58) 94 03/08/17 15:11 97 03/08/17 13:10 18 03/08/17 11:00 92 03/08/17 11:00 98.5 92 18 98/50 (66) 93 I/O 03/08/17 03/08/17 03/08/17 03/09/17 03/09/17 03/09/17 07:00 15:00 23:00 07:00 15:00 23:00 Intake Total 720 ml 600 ml 580 ml Output Total 855 ml 1605 ml 1303 ml Balance -135 ml -1005 ml -723 ml Intake Oral 720 ml 600 ml 580 ml Output Urine Total 850 ml 1600 ml 1300 ml Drainage Total 5 ml 5 ml 3 ml # Bowel Movements 0 0 0 Result Diagram: 03/07/17 0430 03/09/17 0525 Objective Remarks GENERAL: in NAD SKIN: Right groin ecchymosis around the inner thigh. DP drain and wound VAC in place. HEAD: Normocephalic. EYES: No scleral icterus. No injection or drainage. NECK: Supple, trachea midline. No JVD or lymphadenopathy. CARDIOVASCULAR: Regular rate and rhythm without murmurs, gallops, or rubs. Trace edema in the lower extremity and right lower extremity. RESPIRATORY: Breath sounds equal bilaterally. No accessory muscle use. GASTROINTESTINAL: Abdomen soft, non-tender, nondistended. Medications and IVs Current Medications Sodium Chloride (NS Flush) 2 ml UNSCH PRN IVF FLUSH AFTER USING IV ACCESS; Start 02/28/17 at 13:30; Stop 03/03/17 at 13:27; Status DC Albuterol/ Ipratropium (Duoneb Neb) 1 ampule Q15M INH Last administered on 02/28 13:30; Start 02/28/17 at 13:30; Stop 02/28/17 at 13:46; Status DC Methylprednisolone Sodium Succinate (SoluMEDROL INJ) 125 mg ONCE ONCE IV PUSH Last administered on 02/28/17 14:15; Start 02/28/17 at 14:15; Stop 02/28/17 at 14:16; Status DC Aspirin (Aspirin Chew) 324 mg ONCE ONCE PO Last administered on 02/28/17 14: 43; Start 02/28/17 at 14:45; Stop 02/28/17 at 14:46; Status DC Furosemide (Lasix Inj) 20 mg ONCE ONCE IV PUSH Last administered on 02/28/17 14:55; Start 02/28/17 at 14:45; Stop 02/28/17 at 14:46; Status DC Iohexol (Omnipaque 350 Inj) 74 ml STK-MED ONCE IVCONTRAST Last administered on 02/28/17 12:53; Start 02/28/17 at 12:53; Stop 02/28/17 at 15:11; Status DC Heparin Sodium (Porcine) (Heparin Inj) 4,000 units ONCE ONCE IV Last administered on 02/28/17 18:11; Start 02/28/17 at 17:30; Stop 02/28/17 at 17:31 ; Status DC Heparin Sodium (Porcine) (Heparin Inj) 5,000 units UNSCH PRN IV APTT LESS THAN 25; Start 02/28/17 at 23:30; Stop 03/02/17 at 09:48; Status DC Heparin Sodium (Porcine) (Heparin Inj) 2,500 units UNSCH PRN IV APTT 25 TO 39 Last administered on 03/01/17 22:09; Start 02/28/17 at 23:30; Stop 03/02/17 at 09:48; Status DC Heparin Sodium/ Dextrose 250 ml @ 9.36 mls/hr TITRATE PRN IV Coagulation management Last administered on 03/01/17 18:34; Start 02/28/17 at 17:30; Stop 03/02/17 at 09:48; Status DC Ramipril (Altace) 10 mg DAILY PO Last administered on 03/02/17 13:01; Start at 09:00; Status Future Hold Pravastatin Sodium (Pravachol) 80 mg HS PO Last administered on 03/08/17 21:56 ; Start 02/28/17 at 21:00 Sodium Chloride (NS Flush) 2 ml BID IV FLUSH Last administered on 03/09/17 08: 45; Start 02/28/17 at 21:00 Sodium Chloride (NS Flush) 2 ml UNSCH PRN IV FLUSH FLUSH AFTER USING IV ACCESS ; Start 02/28/17 at 18:15; Stop 03/03/17 at 13:27; Status DC Aspirin (Aspirin Chew) 162 mg DAILY PO Last administered on 03/01/17 09:30; Start 03/01/17 at 09:00; Stop 03/02/17 at 08:54; Status DC Metoprolol Tartrate (Lopressor) 25 mg BID PO Last administered on 03/01/17 22: 10; Start 02/28/17 at 21:00; Stop 03/02/17 at 08:48; Status DC Nitroglycerin (Nitroglycerin 2% Oint) 1 inch Q6HR TOP Last administered on 03/02 05:53; Start 02/28/17 at 19:30; Stop 03/02/17 at 08:54; Status DC Nitroglycerin (Nitrostat Sl) 0.4 mg Q5M PRN SL ANGINA; Start 02/28/17 at 18:15 Acetaminophen (Tylenol) 500 mg Q4H PRN PO PAIN 1-2 Last administered on 07:13; Start 02/28/17 at 18:15; Stop 03/08/17 at 10:04; Status DC Morphine Sulfate (Morphine Inj) 2 mg Q5M PRN IV PUSH breakthrough pain 6-10 Last administered on 03/05/17 00:45; Start 02/28/17 at 18:15; Stop 03/08/17 at 10:04; Status DC Famotidine (Pepcid) 20 mg BID PO Last administered on 03/09/17 08:46; Start at 21:00 Dextrose (D50w (Vial) Inj) 50 ml UNSCH PRN IV PUSH HYPOGLYCEMIA-SEE COMMENTS; Start 02/28/17 at 18:15 Glucagon (Glucagon Inj) 1 mg UNSCH PRN OTHER HYPOGLYCEMIA-SEE COMMENTS; Start 02/28/17 at 18:15 Insulin Aspart (NovoLOG SUPPLEMENTAL SCALE) 1 ACHS SLIDING SCALE SQ Last administered on 03/08/17 21:00; Start 02/28/17 at 21:00 Furosemide (Lasix Inj) 20 mg DAILY IV PUSH Last administered on 03/01/17 09:29 ; Start 03/01/17 at 09:00; Stop 03/02/17 at 08:54; Status DC Albuterol/ Ipratropium (Duoneb Neb) 1 ampule Q4HR NEB NEB Last administered on 03/05/17 05:25; Start 03/01/17 at 16:00; Stop 03/05/17 at 08:41; Status DC Guaifenesin (Mucinex Er) 600 mg BID PO Last administered on 03/09/17 08:46; Start 03/01/17 at 21:00 Sodium Chloride 1,000 ml @ 100 mls/hr Q10H IV Last administered on 03/03/17 08:43; Start 03/01/17 at 17:23; Stop 03/03/17 at 11:26; Status DC Aspirin (Aspirin) 325 mg [employer] SAL[employer]ANT PO ; Start 03/01/17 at 17:30; Stop 03/05/17 at 17:29; Status DC Diphenhydramine HCl (Benadryl) 50 mg [employer]ANT PO Last administered on 05:54; Start 03/01/17 at 17:30; Stop 03/05/17 at 17:29; Status DC Diazepam (Valium) 10 mg [employer]ANT PO ; Start 03/01/17 at 17:30; Stop 03/05/17 at 17:29; Status DC Midazolam HCl (Versed Inj) 2 mg STK-MED ONCE .ROUTE Last administered on 07:35; Start 03/02/17 at 07:24; Stop 03/02/17 at 07:25; Status DC Verapamil HCl (Isoptin Inj) 5 mg STK-MED ONCE .ROUTE ; Start 03/02/17 at 07:31; Stop 03/02/17 at 07:32; Status DC Heparin Sodium (Porcine) (Heparin Inj) 10,000 units STK-MED ONCE .ROUTE Last administered on 03/02/17 07:39; Start 03/02/17 at 07:31; Stop 03/02/17 at 07:32 ; Status DC Tirofiban/Sodium Chloride 250 ml @ As Directed STK-MED ONCE IV Last administered on 03/02/17 07:55; Start 03/02/17 at 07:53; Stop 03/02/17 at 07:54 ; Status DC Ticagrelor (Brilinta) 180 mg STK-MED ONCE PO Last administered on 03/02/17 08: 36; Start 03/02/17 at 08:31; Stop 03/02/17 at 08:32; Status DC Metoprolol Tartrate (Lopressor) 50 mg BID PO Last administered on 03/02/17 20: 15; Start 03/02/17 at 09:00; Status Future Hold Sodium Chloride 1,000 ml @ 100 mls/hr Q10H IV ; Start 03/02/17 at 08:46; Stop 03/02/17 at 21:04; Status DC IV Flush (NS Flush) 2 ml UNSCH PRN IVF FLUSH AFTER USING IV ACCESS; Start 03/02 at 09:00 Temazepam (Restoril) 15 mg HS PRN PO SLEEP; Start 03/02/17 at 21:00 Aspirin (Aspirin Chew) 81 mg DAILY PO Last administered on 03/09/17 08:46; Start 03/03/17 at 09:00 Ticagrelor (Brilinta) 90 mg BID PO Last administered on 03/04/17 09:26; Start 03/03/17 at 09:00; Status Future Hold Tirofiban/Sodium Chloride 250 ml @ 13.914 mls/ hr [id number] IV ; Start 03/02/17 at 08:46; Stop 03/02/17 at 20:52; Status DC Miscellaneous Information 1 ONCE ONCE XX ; Start 03/02/17 at 09:00; Stop at 09:48; Status DC Furosemide (Lasix) 40 mg DAILY PO Last administered on 03/02/17 13:01; Start 03/02/17 at 10:00; Stop 03/03/17 at 11:26; Status DC Iohexol (OMNIPAQUE 350 INJ (Daycare Manager)) 100 ml STK-MED ONCE OTHER Last administered on 03/02/17 07:30; Start 03/02/17 at 07:30; Stop 03/02/17 at 09:53 ; Status DC Iohexol (OMNIPAQUE 350 INJ (Daycare Manager)) 50 ml STK-MED ONCE OTHER ; Start at 07:30; Stop 03/02/17 at 09:53; Status DC Midazolam HCl (Versed Inj) 2 mg ONCE ONCE IV ; Start 03/02/17 at 07:35; Stop at 11:11; Status DC Heparin Sodium (Porcine) (Heparin Inj) 5,000 units ONCE ONCE IV ; Start at 08:00; Stop 03/02/17 at 11:11; Status DC Ticagrelor (Brilinta) 180 mg ONCE ONCE PO ; Start 03/02/17 at 08:00; Stop 03/02 at 11:11; Status DC Atropine Sulfate (Atropine Inj) 1 mg STK-MED ONCE .ROUTE ; Start 03/02/17 at 11: 10; Stop 03/02/17 at 11:11; Status DC Furosemide (Lasix Inj) 40 mg DAILY IV PUSH Last administered on 03/05/17 08:50 ; Start 03/03/17 at 11:15; Stop 03/05/17 at 15:04; Status DC Potassium Chloride (KCl) 40 meq ONCE ONCE PO Last administered on 03/03/17 11 :49; Start 03/03/17 at 11:15; Stop 03/03/17 at 11:40; Status DC Potassium Chloride (KCl) 40 meq ONCE ONCE PO Last administered on 03/03/17 16 :23; Start 03/03/17 at 16:00; Stop 03/03/17 at 16:01; Status DC Methylprednisolone Sodium Succinate (SoluMEDROL INJ) 125 mg ONCE ONCE IV PUSH Last administered on 03/03/17 13:31; Start 03/03/17 at 13:30; Stop 03/03/17 at 13:31; Status DC Iohexol (Omnipaque 350 Inj) 100 ml STK-MED ONCE IVCONTRAST ; Start 03/04/17 at 18:44; Stop 03/04/17 at 18:45; Status DC Etomidate (Amidate Inj) 20 mg STK-MED ONCE .ROUTE ; Start 03/04/17 at 19:21; Stop 03/04/17 at 19:22; Status DC Heparin Sodium (Porcine) (Heparin Inj) 20,000 units STK-MED ONCE .ROUTE ; Start 03/04/17 at 19:39; Stop 03/04/17 at 19:40; Status DC Protamine Sulfate (Protamine Sulfate Inj) 50 mg STK-MED ONCE .ROUTE ; Start at 19:49; Stop 03/04/17 at 19:50; Status DC Heparin Sodium (Porcine) (Heparin Inj) 10,000 units STK-MED ONCE .ROUTE ; Start 03/04/17 at 19:49; Stop 03/04/17 at 19:50; Status DC Vancomycin HCl (Vancomycin Inj) 1,000 mg STK-MED ONCE .ROUTE Last administered on 03/04/17 08:38; Start 03/04/17 at 19:49; Stop 03/04/17 at 19:50; Status DC Thrombin (Thrombin Top Milfay) 20,000 units STK-MED ONCE .ROUTE ; Start 03/04/17 at 19:49; Stop 03/04/17 at 19:50; Status DC Heparin Sodium/ Sodium Chloride 1,000 ml @ As Directed STK-MED ONCE .ROUTE Last administered on 03/04/17 19:49; Start 03/04/17 at 19:49; Stop 03/04/17 at 19:50; Status DC Bupivacaine HCl (Marcaine Pf 0.5% Inj) 30 ml STK-MED ONCE .ROUTE Last administered on 03/04/17 19:49; Start 03/04/17 at 19:49; Stop 03/04/17 at 19:50 ; Status DC Vasopressin (Pitressin Inj) 20 units STK-MED ONCE .ROUTE ; Start 03/04/17 at 19: 53; Stop 03/04/17 at 19:54; Status DC Sodium Chloride 1,000 ml @ 100 mls/hr Q10H IV Last administered on 03/05/17 16:13; Start 03/04/17 at 21:30; Stop 03/05/17 at 21:29; Status DC Ondansetron HCl (Zofran Inj) 4 mg Q6H PRN IV PUSH SEVERE NAUSEA AND/OR VOMITING ; Start 03/04/17 at 21:30 Magnesium Hydroxide (Milk Of Magnesia Liq) 30 ml DAILY PRN PO CONSTIPATION; Start 03/04/17 at 21:30 Docusate Calcium (Surfak) 240 mg HS PO Last administered on 03/08/17 21:56; Start 03/05/17 at 21:00 Vancomycin HCl 1000 mg/Sodium Chloride 250 ml @ 250 mls/hr Q12H IV Last administered on 03/05/17 19:48; Start 03/05/17 at 08:00; Stop 03/05/17 at 20:59 ; Status DC Miscellaneous Information (Post-op Orders (for Pharmacy)) STAT ONCE OTHER ; Start 03/04/17 at 21:30; Stop 03/04/17 at 21:40; Status DC Phenylephrine HCl 40 mg/Dextrose 500 ml @ 30 mls/hr TITRATE PRN IV Blood pressure management Last administered on 03/05/17 00:54; Start 03/04/17 at 23: 15; Stop 03/08/17 at 10:02; Status DC Terbutaline Sulfate (Brethine Inj) 1 mg UNSCH PRN SQ For Extravasation; Start 03/04/17 at 23:15; Stop 03/05/17 at 06:03; Status DC Norepinephrine Bitartrate 250 ml @ 7.5 mls/hr TITRATE PRN IV Blood pressure management Last administered on 03/05/17 16:13; Start 03/05/17 at 03:15; Stop 03/08/17 at 10:02; Status DC Terbutaline Sulfate (Brethine Inj) 1 mg UNSCH PRN SQ For Extravasation; Start 03/05/17 at 03:15; Stop 03/08/17 at 10:02; Status DC Potassium Chloride 100 ml @ 50 mls/hr Q2H PRN IV For Potassium 2.8 - 3.2 mEq/ L Last administered on 03/05/17t 10:20; Start 03/05/17 at 06:00; Stop 03/08/17 at 10:02; Status DC Potassium Chloride 100 ml @ 50 mls/hr Q2H PRN IV For Potassium 2.8 - 3.2 mEq/L ; Start 03/05/17 at 06:00; Stop 03/08/17 at 10:02; Status DC Potassium Bicarb/ Potassium Chloride (K-Lyte Cl Eff) 50 meq UNSCH PRN PO For Potassium 3.3 - 3.5 mEq/L; Start 03/05/17 at 06:00; Stop 03/08/17 at 10:02; Status DC Potassium Chloride 100 ml @ 25 mls/hr UNSCH PRN IV For Potassium 3.3 - 3.5 mEq /L; Start 03/05/17 at 06:00; Stop 03/08/17 at 10:02; Status DC Potassium Chloride 100 ml @ 50 mls/hr Q2H PRN IV For Potassium 3.3 - 3.5 mEq/L ; Start 03/05/17 at 06:00; Stop 03/08/17 at 10:02; Status DC Magnesium Sulfate 4 gm/Sodium Chloride 100 ml @ 50 mls/hr UNSCH PRN IV For Magnesium 0.9 - 1.1 mg/dL; Start 03/05/17 at 06:00; Stop 03/08/17 at 10:02; Status DC Magnesium Oxide (Mag-Ox) 800 mg UNSCH PRN PO For Magnesium 1.2 - 1.6 mg/dL; Start 03/05/17 at 06:00; Stop 03/08/17 at 10:02; Status DC Magnesium Sulfate 2 gm/Sodium Chloride 100 ml @ 50 mls/hr UNSCH PRN IV For Magnesium 1.2 - 1.6 mg/dL; Start 03/05/17 at 06:00; Stop 03/08/17 at 10:02; Status DC Potassium Phosphate (K-Phos) 2,000 mg Q4H PRN PO For Phosphorus < 2.5 mg/dL; Start 03/05/17 at 06:00; Stop 03/08/17 at 10:03; Status DC Sodium Phosphate 30 mmol/Sodium Chloride 250 ml @ 42 mls/hr UNSCH PRN IV For Phosphorus < 2.5 mg/dL; Start 03/05/17 at 06:00; Stop 03/08/17 at 10:03; Status DC Potassium Phosphate (K-Phos) 2,000 mg UNSCH PRN PO/TUBE SEE LABEL COMMENTS; Start 03/05/17 at 06:00; Stop 03/08/17 at 10:03; Status DC Potassium Phosphate 30 mmol/ Sodium Chloride 260 ml @ 42 mls/hr UNSCH PRN IV SEE LABEL COMMENTS; Start 03/05/17 at 06:00; Stop 03/08/17 at 10:03; Status DC Sodium Chloride 250 ml @ 15 mls/hr ONCE ONCE IV Last administered on 06:45; Start 03/05/17 at 06:00; Stop 03/05/17 at 22:39; Status DC Furosemide (Lasix Inj) 20 mg ONCE ONCE IV Last administered on 03/05/17 08:49 ; Start 03/05/17 at 06:00; Stop 03/05/17 at 06:01; Status DC Acetaminophen/ Hydrocodone Bitart ([place]amo 5-325 Mg) 1 tab Q6H PRN PO BREAKTHROUGH PAIN Last administered on 03/07/17 23:30; Start 03/05/17 at 08:30 Albuterol/ Ipratropium (Duoneb Neb) 1 ampule Q6HR NEB NEB Last administered on 03/08/17 09:31; Start 03/05/17 at 10:00; Stop 03/08/17 at 13:10; Status DC Furosemide (Lasix) 40 mg DAILY PO Last administered on 03/09/17 08:46; Start 03/06/17 at 09:00 Sodium Chloride (NS Flush) See Protocol DAILY IV FLUSH Last administered on 08:45; Start 03/06/17 at 09:00 Sodium Chloride (NS Flush) See Protocol UNSCH PRN IV FLUSH SEE PROTOCOL TABLE; Start 03/05/17 at 15:45 Heparin Sodium (Porcine) (Heparin Central Flush) See Protocol DAILY IV FLUSH Last administered on 03/09/17 08:45; Start 03/06/17 at 09:00 Heparin Sodium (Porcine) (Heparin Central Flush) See Protocol UNSCH PRN IV FLUSH SEE PROTOCOL TABLE; Start 03/05/17 at 15:45 Sodium Chloride (NS Flush) UNSCH PRN IV FLUSH SEE PROTOCOL TABLE; Start at 15:45 Furosemide (Lasix Inj) 20 mg ONCE ONCE IV PUSH Last administered on 03/07/17 12:49; Start 03/07/17 at 12:00; Stop 03/07/17 at 12:01; Status DC Acetaminophen (Tylenol) 650 mg Q4H PRN PO pain 1-10 Last administered on 23:47; Start 03/08/17 at 10:15 Ticagrelor (Brilinta) 90 mg BID PO ; Start 03/08/17 at 21:00; Stop 03/08/17 at 21:00; Status DC Albuterol/ Ipratropium (Duoneb Neb) 1 ampule Q6HR NEB NEB Last administered on 03/09/17 08:51; Start 03/08/17 at 16:00 A/P Assessment and Plan 76-year-old female with history of coronary disease status post stent placement and balloon angioplasty, history of [place], history of left bundle branch block, COPD, type 2 diabetes, hypertension, hyperlipidemia who presented with shortness of breathing, chest pain, lower extremity edema Pseudoaneurysm -Complication due to cardiac catheterization. Status post repair of aneurysm. 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 - Wound VAC removed on 03/08. per vascular surgeon keep drain in until follow- up in one week. -Continue to encourage ambulation. Coronary artery disease CAD and history of [place], Left Bundle branch block, status post PCI and stent placement -Cardiac Catheterization,s/p showed two high grade lesions in very large distal RCA, both stented with drug eluting stents -on daily baby aspirin. Per vascular surgeon can restart Brilinta and monitor for bleed. -Due to low blood pressure unable to start SERGIO inhibitor and beta juan. -Management per manager regional. Repeat echo in 90 days. Anemia -Hemoglobin stable. -No signs of active bleeding. -Secondary to pseudo-aneurysm. -Continue to monitor hemoglobin. Dilated cardiomyopathy EF of 20%. -See treatment as above. -On oral Lasix. Respiratory failure with hypoxia -Most likely secondary to diagnosis as above along with possible COPD. Adobe Layer consulted and appreciate recommendation. Per sander wooden pencils due to recent cardiac event along with COPD she may take some time to be weaned off of oxygen. -Continue with Lasix. Continue to supplement with oxygen as needed. -Continue monitor closely. Tobacco dependence -smoking cessation. COPD -asymptomatic. Fibromyalgia by history . DM II -continue sliding scale Hyperlipidemia -continue Home medicines. Hypokalemia -replaced as needed. Discussed case with Duc her nurse, patient, and patient's sister. Discharge Planning Once patient is medically clear by manager regional can be discharged to a rehabilitation center. Yael Liang MD Mar 09, 2017 10:12
[2017-03-09] MEDS: ACETAMINOPHEN 325 MG TAB PO PRN ×2 (10:52→16:25)
--- NOTE | 2017-03-09 12:58 | PD.VS.PN ---
Subjective Procedure(s): right femoral artery pseudoaneurysm repair. Subjective/Hospital Course Afebrile 76/F ARNEL drain intact to R LE BLE warm w/ motor intact Pt reported she ambulated the hallway w/ PT yesterday Objective Vitals/I&O Date Time Temp Pulse Resp B/P (MAP) Pulse Ox O2 Delivery O2 Flow Rate FiO2 03/09/17 12:53 18 03/09/17 11:00 98.6 92 20 106/58 (74) 98 03/09/17 08:51 94 Nasal Cannula 5.00 03/09/17 07:49 98.5 81 16 102/50 (67) 94 03/09/17 07:47 81 03/09/17 07:45 94 Nasal Cannula 5.00 03/09/17 03:00 98.3 75 22 93/56 (68) 95 03/09/17 03:00 76 03/08/17 23:00 98.4 89 18 91/53 (66) 95 03/08/17 23:00 89 03/08/17 21:04 97 Nasal Cannula 4.50 03/08/17 19:00 98.5 87 17 108/54 (72) 96 03/08/17 19:00 96 Nasal Cannula 4.00 03/08/17 19:00 87 03/08/17 15:12 98.6 89 18 82/46 (58) 94 03/08/17 15:11 97 03/09/17 03/09/17 03/09/17 07:00 15:00 23:00 Intake Total 580 ml Output Total 1303 ml Balance -723 ml Exam: right foot warm. Right groin incision intact. Drain intact. Laboratory Laboratory Tests Test 03/09/17 05:25 Blood Urea Nitrogen 19 Creatinine 0.58 Random Glucose 107 Calcium Level 8.9 Sodium Level 138 Potassium Level 3.7 Chloride Level 96 Carbon Dioxide Level 35.4 Anion Gap 7 Estimat Glomerular Filtration Rate 101 Assessment and Plan Assessment: (1) Pseudoaneurysm of right femoral artery Status: Acute Plan Patient looks like she is improving. Keep drain in and DC manrique. PT rehab and dry dressing changes right groin. OK for antiplatelet agents. Follow up in a week once discharged. Samir Medina DO, FACS Discharge Planning 2 days Samir Medina DO Mar 09, 2017 12:58
[2017-03-09] MEDS ORDERED: RESP: ALBUTEROL 2.5 MG/IPRATROPIUM 0.5 MG NEB (PRN) NEB (16:00)
[2017-03-09] MEDS: PRAVASTATIN SOD 80 MG TAB PO SCH (20:49)
[2017-03-09] MEDS: DOCUSATE CALCIUM 240 MG CAP PO SCH (20:49)
[2017-03-09] MEDS: TICAGRELOR 90 MG TAB PO SCH (21:59)
[2017-03-10] VITALS (22 sets, daily range): BP systolic 88–102; BP diastolic 52–59; PULSE 74–103; RESP 16; TEMP 97.7–98.2; O2SAT 94–100
[2017-03-10] MEDS: ACETAMINOPHEN 325 MG TAB PO PRN ×2 (00:21→11:42)
[2017-03-10 07:52] LABS: MEAN CORPUSCULAR HEMOGLOBIN 29.8 PG (27.0-34.0); MEAN CORPUSCULAR HGB CONC 33.5 % (32.0-36.0); PLATELET COUNT 232 TH/MM3 (150-450); RED BLOOD COUNT 3.37 MIL/MM3 (4.00-5.30); RED CELL DISTRIBUTION WIDTH 13.4 % (11.6-17.2); REVIEW FLAG FINAL
[2017-03-10] MEDS: INSULIN ASPART SUPPLEMENTAL SCALE SQ SCH ×2 (08:00→12:48)
[2017-03-10 08:15] LABS: BICARBONATE 33.9 MEQ/L (21.0-32.0); POTASSIUM 3.7 MEQ/L (3.5-5.1)
[2017-03-10] MEDS: RESP: ALBUTEROL 2.5 MG/IPRATROPIUM 0.5 MG NEB (SCH) NEB ×2 (08:32→13:39)
[2017-03-10] MEDS: SODIUM CHLORIDE 0.9% FLUSH 10 ML FLUSH IV FLUSH SCH ×2 (09:00→09:08)
[2017-03-10] MEDS: FAMOTIDINE 20 MG TAB PO SCH (09:06)
[2017-03-10] MEDS: FUROSEMIDE 40 MG TAB PO SCH (09:06)
[2017-03-10] MEDS: TICAGRELOR 90 MG TAB PO SCH (09:06)
[2017-03-10] MEDS: ASPIRIN 81 MG CHEW TAB PO SCH (09:06)
[2017-03-10] MEDS: guaiFENesin E.R. 600 MG TAB PO SCH (09:08)
[2017-03-10] MEDS ORDERED: BRIL90TA PO (09:54)
[2017-03-10] MEDS ORDERED: FURO40TA PO (09:54)
[2017-03-10] MEDS ORDERED: guaiFENesin ER PO (09:54)
[2017-03-10] MEDS ORDERED: NOVOLOGSS SQ (09:54)
[2017-03-10] MEDS ORDERED: ACET1TAB86 PO (09:54)
[2017-03-10] MEDS ORDERED: FAMO20TA2 PO (09:54)
[2017-03-10] MEDS ORDERED: ASPI81CH25 PO (09:54)
--- NOTE | 2017-03-10 09:56 | PD.CARD.PN ---
Subjective Subjective Remarks Denies CP. Mild dyspnea with exertion. No dizziness, palpitations, PND. Minimal right groin pain. Objective Medications Item Value Date Time Furosemide 40 mg 03/06/17 0900 (Lasix) DAILY/PO 03/10/17 09 Aspirin 81 mg 03/03/17 0900 (Aspirin Chew) DAILY/PO 03/10/17 09 Ticagrelor 90 mg 03/03/17 0900 (Brilinta) BID/PO 03/10/17 09 Pravastatin Sodium 80 mg 02/28/17 2100 (Pravachol) HS/PO 03/09/172048 Vital Signs / I&O Vital Signs Date Time Temp Pulse Resp B/P (MAP) Pulse Ox O2 Delivery O2 Flow Rate FiO2 03/10/17 08:35 95 Nasal Cannula 4.00 03/10/17 06:05 76 03/10/17 05:47 79 03/10/17 04:15 95 03/10/17 03:12 98.2 81 92/52 (65) 100 03/10/17 03:00 74 03/10/17 02:26 80 03/10/17 01:00 86 03/10/17 00:00 88 03/09/17 23:00 78 03/09/17 23:00 98.1 83 127/58 (81) 100 03/09/17 22:29 95 Nasal Cannula 4.00 03/09/17 22:00 84 03/09/17 21:00 94 03/09/17 20:00 92 03/09/17 19:00 97.9 80 94/50 (65) 98 03/09/17 19:00 89 03/09/17 19:00 Nasal Cannula 4.00 03/09/17 17:18 19 03/09/17 16:08 94 Nasal Cannula 4.00 03/09/17 15:00 98.0 90 20 103/57 (72) 95 03/09/17 15:00 89 03/09/17 11:10 85 03/09/17 11:00 98.6 92 20 106/58 (74) 98 I/O 03/09/17 03/09/17 03/09/17 03/10/17 03/10/17 03/10/17 07:00 15:00 23:00 07:00 15:00 23:00 Intake Total 580 ml 480 ml Output Total 1303 ml 1603 ml 1251 ml Balance -723 ml -1603 ml -771 ml Intake Oral 580 ml 480 ml Output Urine Total 1300 ml 1600 ml 1250 ml Drainage Total 3 ml 3 ml 1 ml # Bowel Movements 0 Physical Exam GENERAL: Well developed, well nourished. No acute distress. HEENT: Jugular venous pressure is normal. CHEST: Lungs clear to auscultation anteriorly. CARDIAC: Regular rate and rhythm without S3, S4. I-II/ systolic murmur left lower sternal border. ABDOMEN: Soft, nontender, no hepatosplenomegaly. Bowel sounds present. EXTREMITIES: No pretibial edema. Laboratory Laboratory Tests Test 03/10/17 06:01 White Blood Count 5.0 TH/MM3 Red Blood Count 3.37 MIL/MM3 Hemoglobin 10.0 GM/DL Hematocrit 30.0 % Mean Corpuscular Volume 89.0 FL Mean Corpuscular Hemoglobin 29.8 PG Mean Corpuscular Hemoglobin Concent 33.5 % Red Cell Distribution Width 13.4 % Platelet Count 232 TH/MM3 Mean Platelet Volume 7.8 FL Blood Urea Nitrogen 17 MG/DL Creatinine 0.69 MG/DL Random Glucose 112 MG/DL Calcium Level 9.1 MG/DL Sodium Level 138 MEQ/L Potassium Level 3.7 MEQ/L Chloride Level 96 MEQ/L Carbon Dioxide Level 33.9 MEQ/L Anion Gap 8 MEQ/L Estimat Glomerular Filtration Rate 83 ML/MIN Assessment and Plan Problem List: (1) CAD (coronary artery disease) ICD Codes: I25.10 - Atherosclerotic heart disease of [place] coronary artery without angina pectoris Plan: Cardiac status remains stable. No further angina s/p stent x 2 of distal RCA. Patient now ~6 days s/p surgical repair of right femoral pseudoaneurysm. REC continue aspirin, Brilinta OK for transfer to rehab from my standpoint (2) Dilated cardiomyopathy ICD Codes: I42.0 - Dilated cardiomyopathy Status: Chronic Plan: EF ~ 20%. Compensated. No CHF. Appears patient has component of non- ischemic cardiomyopathy as well. BP's overall too low still for beta juan, SERGIO-I therapy. REC continue oral furosemide repeat echo in about 90 days resume beta juan, SERGIO-I when BP's more stable Code Status full code Discussed Condition With patient Problem Qualifiers (1) CAD (coronary artery disease): Qualified Codes: I25.110 - Atherosclerotic heart disease of [place] coronary artery with unstable angina pectoris Jair Maddox MD Mar 10, 2017 09:56
--- NOTE | 2017-03-10 09:58 | HHI.DS ---
Discharge Summary Admission Date Feb 28, 2017 at 17:40 Discharge Date: Mar 10, 2017 Admitting Diagnosis Nstemi, new-onset chf (1) Non-STEMI (non-ST elevated myocardial infarction) ICD Code: I21.4 - Non-ST elevation (NSTEMI) myocardial infarction Diagnosis: Principal Status: Acute (2) CAD (coronary artery disease) ICD Code: I25.10 - Atherosclerotic heart disease of [place] coronary artery without angina pectoris Diagnosis: Secondary (3) Dilated cardiomyopathy ICD Code: I42.0 - Dilated cardiomyopathy Diagnosis: Principal Status: Chronic (4) Pseudoaneurysm of right femoral artery ICD Code: I72.4 - Aneurysm of artery of lower extremity Diagnosis: Principal Status: Acute (5) CHF (congestive heart failure) ICD Code: I50.9 - Heart failure, unspecified Diagnosis: Principal Status: Acute Procedures see hospital course Brief History - From Admission This is a 76-year-old female past medical history of coronary artery disease status post stent placement and 1999 and balloon angioplasty and 2005, history of left bundle branch block, history of DE in 1999, COPD, type 2 diabetes, hypertension, and hyperlipidemia who presented with chest pressure, shortness of breathing, and lower extremity edema for 2 weeks. Patient stated that chest pressure and shortness of breathing occurred with exertion. Symptoms worsen so she went to the emergency department. Chest pressure and shortness of breathing resolved with rest. Lower extremity worsen over the past 2 weeks. Patient stated that she she has to sleep with her head up. Patient thought her chest pressure was indigestion since she has a history of hiatal hernia. Patient does not follow with a cad design engineer. She stated that she last saw a cad design engineer in 2005. She has not had any echo or stress test done since her balloon angioplasty in 2005. Patient continues to smoke tobacco for 50+ years. Baseline was 2 packs per day and now down to half pack per day for the last 6 months. At the moment patient denies chest pain. All other review systems reviewed and negative. CBC/BMP: 03/10/17 0601 03/10/17 0601 Significant Findings Laboratory Tests Test 9/29/17 05:25 03/10/17 06:01 Blood Urea Nitrogen 19 MG/DL (7-18) Random Glucose 107 MG/DL (74-106) 112 MG/DL (74-106) Chloride Level 96 MEQ/L (98-107) 96 MEQ/L (98-107) Carbon Dioxide Level 35.4 MEQ/L (21.0-32.0) 33.9 MEQ/L (21.0-32.0) Red Blood Count 3.37 MIL/MM3 (4.00-5.30) Hemoglobin 10.0 GM/DL (11.6-15.3) Hematocrit 30.0 % (35.0-46.0) Estimat Glomerular Filtration Rate 83 ML/MIN (>89) Imaging Last Impressions Chest X-Ray 03/07/17 0000 Signed Impressions: Service Date/Time: Tuesday, March 07, 2017 10:16 - CONCLUSION: Increasing bibasilar parenchymal changes moderate cardiomegaly. Fausto Moe MD FACR Lower Extremity Ultrasound 03/04/17 0000 Signed Impressions: Service Date/Time: Saturday, March 04, 2017 16:15 - CONCLUSION: Right groin pseudoaneurysm. Prasanna Llanes MD Aorta w/Runoff CTA 03/04/17 0000 Signed Impressions: Service Date/Time: Saturday, March 04, 2017 18:37 - CONCLUSION: 1. Oderate 2 large pseudoaneurysm again noted. 2. Diffuse atherosclerotic change with no aneurysm or high-grade stenosis identified. There are small ulcerative plaques in the abdominal aorta. 3. The distal anterior tibial arteries could not be visualized on either side and this is likely technical in nature. 4. Nonobstructing left renal calculus. Prasanna Llanes MD CT Angiography 02/28/17 1326 Signed Impressions: Service Date/Time: Tuesday, February 28, 2017 15:07 - CONCLUSION: 1. No PE is identified. 2. Small bilateral pleural effusions with a smooth septal thickening in the lower lobes. These findings suggest mild pulmonary edema. Given the enlarged cardiac silhouette, a cardiogenic cause should be considered. 3. Nonspecific 8mm right adrenal gland nodule. It does not meet criteria for an adenoma on this examination. Duc Bryant MD PE at Discharge GENERAL: in NAD SKIN: Right groin ecchymosis around the inner thigh. DP drain and wound VAC in place. HEAD: Normocephalic. EYES: No scleral icterus. No injection or drainage. NECK: Supple, trachea midline. No JVD or lymphadenopathy. CARDIOVASCULAR: Regular rate and rhythm without murmurs, gallops, or rubs. Trace edema in the lower extremity and right lower extremity. RESPIRATORY: Breath sounds equal bilaterally. No accessory muscle use. GASTROINTESTINAL: Abdomen soft, non-tender, nondistended. Pt update on day of discharge f/u for NSTEMI/CAD/pseudoaneurysm Patient stated she feels a lot better. She stated SOB has improved. Denied any CP, palpitations, lightheadedness or dizziness. Discussed with Dr. Maddox in regards to blood pressure medication and management. He stated to continue to hold beta juan and SERGIO inhibitor due to low blood pressure and he will manage this as outpatient. He also stated that patient is clear for discharge from his perspective. Discussed with patient's nurse. Hospital Course 76-year-old female with history of coronary disease status post stent placement and balloon angioplasty, history of DE, history of left bundle branch block, COPD, type 2 diabetes, hypertension, hyperlipidemia who presented with shortness of breathing, chest pain, lower extremity edema Pseudoaneurysm -Complication due to cardiac catheterization. Status post repair of aneurysm. 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 - Wound VAC removed on 03/08. per vascular surgeon keep drain in until follow- up in one week. -Continue to encourage ambulation. Coronary artery disease CAD and history of DE, Left Bundle branch block, status post PCI and stent placement -Cardiac Catheterization,s/p showed two high grade lesions in very large distal RCA, both stented with drug eluting stents -on daily baby aspirin. Per vascular surgeon can restart Brilinta and monitor for bleed. -Due to low blood pressure unable to start SERGIO inhibitor and beta juan. -Management per cad design engineer. Repeat echo in 90 days. Anemia -Hemoglobin stable. -No signs of active bleeding. -Secondary to pseudo-aneurysm. -Continue to monitor hemoglobin. Dilated cardiomyopathy EF of 20%. -See treatment as above. -On oral Lasix. Respiratory failure with hypoxia -Most likely secondary to diagnosis as above along with possible COPD. [employer] consulted and appreciate recommendation. 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 -Continue with Lasix. Continue to supplement with oxygen as needed. -Continue monitor closely. Tobacco dependence -smoking cessation. COPD -asymptomatic. Fibromyalgia by history . DM II -continue sliding scale Hyperlipidemia -continue Home medicines. Hypokalemia -replaced as needed. Pt Condition on Discharge: Stable Discharge Disposition: Discharge to SNF Discharge Time: > 30 minutes Discharge Instructions DIET: Follow Instructions for: Heart Healthy Diet, Diabetic Diet Activities you can perform: Regular-No Restrictions Follow up Referrals: Cardiology - 1 Week with Jair Maddox MD [facility] - Daily Vascular Surgery - 1 Week with Samir Medina V. DO New Medications: Acetaminophen (Eq Acetaminophen) 325 Mg Tab 650 MG PO Q4H PRN for pain 1-10, #30 TAB 0 Refills Aspirin (Aspirin Low Strength) 81 Mg Chew 81 MG PO DAILY for coronary artery disease, #30 EA 0 Refills Famotidine (Famotidine) 20 Mg Tab 20 MG PO BID for acid reflux, #60 TAB 0 Refills Furosemide (Furosemide) 40 Mg Tab 40 MG PO DAILY for CHF, #30 TAB 0 Refills Insulin Aspart Inj (Novolog Inj) 100 Unit/Ml Inj 1 UNIT SQ ACHS SLIDING SCALE for diabetes, #1 INJECTION 0 Refills Ticagrelor (Brilinta) 90 Mg Tab 90 MG PO BID for coronary artery disease, #60 TAB 0 Refills [guaiFENesin ER] () 600 MG TABCR 600 MG PO BID for congestion, #30 TAB 0 Refills Continued Medications: Simvastatin (Simvastatin) 40 Mg Tab 40 MG PO HS for Cholesterol Management, #30 TAB 0 Refills Discontinued Medications: Metformin (Metformin) 500 Mg Tab 500 MG PO BIDPC for Blood Sugar Management, #60 TAB 0 Refills With meals Yael Liang MD Mar 10, 2017 09:58
== END 2017-03-10 16:50 | DRG 246 ==
LOC: NEPE 12:52 → NEDA 17:40 → HCIS 21:52 → HCVI 03-04 20:34 → HCPC 03-04 21:00 → HCVR 03-04 22:00 → HCPC 03-05 08:40 → HCVI 03-05 08:46 → HCPC 03-09 10:10
PROVIDERS: ADMIT Family Medicine; ATTEND Family Medicine
PROC: 4A023N7 Measurement of Cardiac Sampling and Pressure, Left Heart, Percutaneous Approach (ICD-10-PCS; 2017-03-02)
PROC: B2111ZZ Fluoroscopy of Multiple Coronary Arteries using Low Osmolar Contrast (ICD-10-PCS; 2017-03-02)
PROC: B2151ZZ Fluoroscopy of Left Heart using Low Osmolar Contrast (ICD-10-PCS; 2017-03-02)
PROC: 027035Z Dilation of Coronary Artery, One Artery with Two Drug-eluting Intraluminal Devices, Percutaneous Approach (ICD-10-PCS; principal; 2017-03-02 07:30)
PROC: 04QK0ZZ Repair Right Femoral Artery, Open Approach (ICD-10-PCS; 2017-03-04)
PROC: 30233K1 Transfusion of Nonautologous Frozen Plasma into Peripheral Vein, Percutaneous Approach (ICD-10-PCS; 2017-03-04)
PROC: 30233N1 Transfusion of Nonautologous Red Blood Cells into Peripheral Vein, Percutaneous Approach (ICD-10-PCS; 2017-03-05)
DX: I21.4 Non-ST elevation (NSTEMI) myocardial infarction (principal); J96.91 Respiratory failure, unspecified with hypoxia; I42.0 Dilated cardiomyopathy; I50.22 Chronic systolic (congestive) heart failure; I11.0 Hypertensive heart disease with heart failure; G62.9 Polyneuropathy, unspecified; D62 Acute posthemorrhagic anemia; I97.89 Other postprocedural complications and disorders of the circulatory system, not elsewhere classified; I97.630 Postprocedural hematoma of a circulatory system organ or structure following a cardiac catheterization; J44.9 Chronic obstructive pulmonary disease, unspecified; I72.4 Aneurysm of artery of lower extremity; I25.110 Atherosclerotic heart disease of native coronary artery with unstable angina pectoris; Z95.5 Presence of coronary angioplasty implant and graft; Z85.42 Personal history of malignant neoplasm of other parts of uterus; M54.2 Cervicalgia; M19.90 Unspecified osteoarthritis, unspecified site; K44.9 Diaphragmatic hernia without obstruction or gangrene; E78.00 Pure hypercholesterolemia, unspecified; I44.7 Left bundle-branch block, unspecified; Z90.710 Acquired absence of both cervix and uterus; F17.210 Nicotine dependence, cigarettes, uncomplicated; E11.9 Type 2 diabetes mellitus without complications; Z90.49 Acquired absence of other specified parts of digestive tract; M79.7 Fibromyalgia; I25.2 Old myocardial infarction; E87.6 Hypokalemia; Y83.8 Other surgical procedures as the cause of abnormal reaction of the patient, or of later complication, without mention of misadventure at the time of the procedure; Y71.8 Miscellaneous cardiovascular devices associated with adverse incidents, not elsewhere classified; Y92.239 Unspecified place in hospital as the place of occurrence of the external cause; Y71.2 Prosthetic and other implants, materials and accessory cardiovascular devices associated with adverse incidents; Z79.84 Long term (current) use of oral hypoglycemic drugs
CPT/HCPCS: 36430; 36569; 71010; 71275; 75635; 76937; 80048; 80053; 80061; 82550; 82948; 83605; 83690; 83735; 83880; 84100; 84484; 85002; 85007; 85014; 85018; 85025; 85027; 85610; 85730; 86850; 86900; 86901; 86920; 86927; 92928; 93005; 93306; 93458; 93926; 94150; 94640; 94664; 96374; 96375; C1725; C1769; C1874; C1887; C1893; J0461; J1642; J1644; J1815; J1940; J2250; J2270; J2370; J2720; J2930; J3246; J3370; J3480; J7030; J7040; J7050; J7060; P9016; P9017; Q0163; Q9967

== ENCOUNTER → 2017-04-25 | Outpatient (CLI) | payer OTHER ==
[~2017-04-25] MED LIST changes: +ACET325T15 PO; -ALBU.5I INH; -ALBU0.086 INH; +ASPI81CH25 PO; -ASPI81TA82 PO; +BRIL90TA PO; -CALTTAB5 PO; +FAMO20TA2 PO; -FISHCAP PO; +FURO40TA PO; -LEVA500T PO; -METF500 PO; -MUCI600T PO; +NOVOLOGSS SQ; -PRED20 PO; +RAMI10CA PO; -RAMI5CAP7 PO; -VITA20003 PO; +guaiFENesin ER PO
--- NOTE | 2017-04-30 12:29 | RSPPFT ---
DATE OF PROCEDURE: 04/25/17 COMMENTS: VOLUMES DYNAMIC: FVC and FEV1 both mildly reduced. FLOWS: FEV1% mildly reduced'; FEF 25-75 moderately reduced. IMPRESSION: Mild obstructive ventilatory defect.
== END ==
LOC: PHSDC 08:29
PROVIDERS: ATTEND Internal Medicine
DX: J44.9 Chronic obstructive pulmonary disease, unspecified (principal)
CPT/HCPCS: 94010; 94620